=== PATIENT | male | born 1955 | race Two or more races ===

== ENCOUNTER 2020-03-11 21:34 | Emergency (ER) | payer OTHER, MEDICAID ==
[~2020-03-11] VITALS: Ht 170.2 cm; Wt 72.6 kg
[~2020-03-11 21:34] MED LIST: ASPI81CH49 PO; BACL10TA PO; BECL0.07 IN; DIVA500T13 PO; GLIP5TAB12 PO; LANS30CA57 PO; METF850T PO; OXYC-589 PO; QUET150T2 PO; [UNRECOGNIZED DRUG - CODE] PO; [UNRECOGNIZED DRUG - CODE] PO
[2020-03-11 22:11] VITALS: BP 159/89
[2020-03-12] MEDS ORDERED: HYDROcodone-ACET 10/325MG TAB PO ONE (00:45)
== END 2020-03-12 01:14 | disposition home or self-care (01) ==
LOC: ER 21:35
DX: S83.92XA Sprain of unspecified site of left knee, initial encounter (principal); E11.9 Type 2 diabetes mellitus without complications; K21.9 Gastro-esophageal reflux disease without esophagitis; I10 Essential (primary) hypertension; Z88.8 Allergy status to other drugs, medicaments and biological substances; W19.XXXA Unspecified fall, initial encounter; Y93.89 Activity, other specified; Y92.89 Other specified places as the place of occurrence of the external cause; Y99.8 Other external cause status
CPT/HCPCS: 73700

== ENCOUNTER 2022-11-13 12:06 | Emergency (ER) | payer OTHER, MEDICAID ==
[~2022-11-13] VITALS: Ht 170.2 cm; Wt 86.2 kg
[~2022-11-13 12:06] MED LIST changes: +VERA180T42 PO; -[UNRECOGNIZED DRUG - CODE] PO
[2022-11-13 17:19] VITALS: BP 140/73
== END 2022-11-13 17:23 | disposition left against medical advice (07) ==
LOC: ER 12:06
DX: M79.10 Myalgia, unspecified site (principal); Z53.21 Procedure and treatment not carried out due to patient leaving prior to being seen by health care provider

== ENCOUNTER 2022-12-22 14:57 | Emergency (ER) | payer MEDICARE, MEDICAID ==
[~2022-12-22] VITALS: Ht 167.6 cm; Wt 89.0 kg
[~2022-12-22 14:57] MED LIST changes: -VERA180T42 PO; +VERA1TAB PO
[2022-12-22 16:48] VITALS: BP 119/69
[2022-12-22] MEDS ORDERED: LIDOCAINE 1% HCL (LOCAL ANESTH.) INJ 20ML MDV IJ ONE (17:00)
[2022-12-22] MEDS ORDERED: CEPH-510 PO (17:13)
== END 2022-12-22 17:42 | disposition home or self-care (01) ==
LOC: ER 14:57
DX: S01.81XA Laceration without foreign body of other part of head, initial encounter (principal); F32.9 Major depressive disorder, single episode, unspecified; E11.9 Type 2 diabetes mellitus without complications; K21.9 Gastro-esophageal reflux disease without esophagitis; I10 Essential (primary) hypertension; Z88.8 Allergy status to other drugs, medicaments and biological substances; Y04.0XXA Assault by unarmed brawl or fight, initial encounter; Y93.89 Activity, other specified; Y92.89 Other specified places as the place of occurrence of the external cause; Y99.8 Other external cause status
CPT/HCPCS: 12013; 99283; J2001

== ENCOUNTER 2023-09-28 02:00 | Emergency (ER) | payer MEDICARE, MEDICAID ==
[~2023-09-28] VITALS: Ht 170.2 cm; Wt 76.7 kg
[~2023-09-28 02:00] MED LIST changes: +CEPH-510 PO
[2023-09-28 02:46] VITALS: BP 140/88; PULSE 80; RESP 18; TEMP 97.9; O2SAT 98
[2023-09-28] MEDS: ACETAMINOPHEN 325 MG TAB PO ONE (02:54)
== END 2023-09-28 02:48 | disposition home or self-care (01) ==
LOC: ER 02:00
DX: S01.412A Laceration without foreign body of left cheek and temporomandibular area, initial encounter (principal); E11.9 Type 2 diabetes mellitus without complications; I10 Essential (primary) hypertension; K21.9 Gastro-esophageal reflux disease without esophagitis; Z88.6 Allergy status to analgesic agent; W22.01XA Walked into wall, initial encounter; Y93.89 Activity, other specified; Y92.091 Bathroom in other non-institutional residence as the place of occurrence of the external cause; Y99.8 Other external cause status
CPT/HCPCS: 12011

== ENCOUNTER 2024-06-14 20:24 | Emergency (ER) | payer MEDICARE, MEDICAID ==
[~2024-06-14] VITALS: Ht 170.2 cm; Wt 74.0 kg
[~2024-06-14 20:24] MED LIST changes: -GLIP5TAB12 PO; +GLIP5TAB21 PO; +VERA180T60 PO; -VERA1TAB PO
[2024-06-14 23:34] VITALS: BP 147/90; PULSE 108; RESP 20; TEMP 99.4; O2SAT 97
[2024-06-15] MEDS: DexAMETHasone SOD PHOS 10MG/1ML VIAL INJ IM ONE (02:10)
--- NOTE | 2024-06-15 02:26 | ED.PDOC ---
Back pain HPI HPI Comments This is a 68-year-old male presents to the ED with the chief complaint acute on chronic neck pain x2 weeks. Patient reports history of chronic neck pain follows with his primary care doctor for steroid injections every 3 months. However patient states he did not able to get in the past 2 weeks he is complaining of increase in neck pain with stiffness. Describes as achy and throbbing nonradiating type pain posterior neck 8/10 on pain scale. He denies any new injury, numbness, weakness, fevers, chills, chest pain, shortness of breath, or dizziness. Chief Complaint: Neck Pain Time Seen by MD: 20:51 Primary Care Provider: THOMAS Reviewed Notes: Nurses Notes, Medications, Allergies Allergies: Coded Allergies: Ketorolac (Verified Allergy, Mild, 10/24/10) Tromethamine (Verified Allergy, Mild, 10/24/10) Home Meds Active Scripts Cephalexin ( Keflex 500) 500 Mg Cap, 1 CAP PO QID, #30 CAP Prov:AMISH MARTELL 12/22/22 Reported Medications Beclomethasone Dipropionate (Qvar) 40 Mcg Aer, 40 MCG IN BID, AER 2 PUFFS BID 12/16/13 Baclofen (Baclofen) 10 Mg Tab, 10 MG PO BID PRN for FOR MUSCLE SPASM, MG 12/16/13 Quetiapine Fumerate (Seroquel Xr) 150 Mg Tab, 350 MG PO HS for 30 Days, MG 12/16/13 Divalproex Sodium (Divalproex Sodium) 500 Mg Tab, 500 MG PO BID, MG 12/16/13 Hydrocodone-Acetaminophen (Hydrocodone/Acetaminophen) 1 Tab Tab, 1 TAB PO Q6HP PRN for MODERATE PAIN, TAB 12/16/13 Metformin Hydrochloride (Glucophage) 850 Mg Tab, 850 MG PO BID, TAB 12/16/13 Aspirin (Aspirin) 81 Mg Chw, 81 MG PO DAILY, CHW 12/16/13 Lansoprazole (Lansoprazole) 30 Mg Cap, 30 MG PO DAILY, CAP 12/16/13 Oxycodone Hcl (Roxicodone) 5 Mg Tab, 5 MG PO Q6HPRN PRN for MODERATE PAIN, TAB 12/16/13 Verapamil Hcl (Verapamil Hcl Er) 180 Mg Tab, 180 MG PO DAILY, TAB 12/16/13 Glipizide (Glipizide) 5 Mg Tab, 5 MG PO BID, MG 12/16/13 Mode of Arrival: Ambulatory Past Medical History PAST MEDICAL HISTORY: Depression, DM, GERD, HTN Family History Family History: Reviewed,noncontributory to illness Social History Smoker: Non-Smoker Alcohol: Denies ETOH Use Drugs: Denies Drug Use Lives In: Home Constitutional: denies: chills, diaphoresis, fatigue, fever, malaise, sweats, weakness, others EENTM: denies: blurred vision, double vision, ear bleeding, ear discharge, ear drainage, ear pain, ear ringing, eye pain, eye redness, hearing loss, mouth pain, mouth swelling, nasal discharge, nose bleeding, nose congestion, nose pain, photophobia, tearing, throat pain, throat swelling, voice changes, others Respiratory: denies: cough, hemoptysis, orthopnea, SOB at rest, shortness of breath, SOB with excertion, stridor, wheezing, others Cardiovascular: denies: chest pain, dizzy spells, diaphoresis, Dyspnea on exertion, edema, irregular heart beat, left arm pain, lightheadedness, palpitations, PND, syncope, others Gastrointestinal: denies: abdomen distended, abdominal pain, blood streaked bowels, constipated, diarrhea, dysphagia, difficulty swallowing, hematemesis, melena, nausea, poor appetite, poor fluid intake, rectal bleeding, rectal pain, vomiting, others Genitourinary: denies: burning, dysuria, flank pain, frequency, hematuria, incontinence, penile discharge, penile sore, pain, testicle pain, testicle swelling, urgency, others Neurological: denies: dizziness, fainting, headache, left sided numbness, left sided weakness, numbness, paresthesia, pre-existing deficit, right sided numbness, right sided weakness, seizure, speech problems, tingling, tremors, weakness, others Musculoskeletal: reports: neck pain; denies: back pain, gout, joint pain, joint swelling, muscle pain, muscle stiffness, others Integumetry: denies: bruises, change in color, change in hair/nails, dryness, laceration, lesions, lumps, rash, wounds, others Allergic/Immunocompromised: denies: Difficulty Healing, Frequent Infections, Hives, Itching, others Hematologic/Lymphatic: denies: anemia, blood clots, easy bleeding, easy bruising, swollen glands, others Endocrine: denies: excessive hunger, excessive sweating, excessive thirst, excessive urination, flushing, intolerance to cold, intolerance to heat, unexp lained weight gain, unexplained weight loss, others Psychiatric: denies: anxiety, bipolar disorder, depression, hopeless, panic disorder, schizophrenia, sleepless, suicidal, others Physical Exam General Appearance: No Apparent Distress, Normal HEENT: Pharynx Normal Neck: Limited Range of Motion (In his palpated over C4 through C7 cervical spine without crepitus or step-offs. 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 Was a procedure done?: No Back Pain Differential Dx Differential Diagnosis: Musculoskeletal Pain X-Ray, Labs, Meds, VS Vital Signs Date Time Temp Pulse Resp B/P (MAP) Pulse Ox O2 Delivery O2 Flow Rate FiO2 06/14/24 23:34 108 20 97 Room Air 06/14/24 23:34 99.4 111 20 147/90 (109) 97 99.4 06/14/24 20:41 97.3 109 16 146/108 (121) 96 Current Medications Medications (Trade) Dose Ordered Sig/Anam Route Start Time Stop Time Status Last Admin Dexamethasone Sodium Phosphate (Decadron Injection) 10 mg ONCE ONCE IM 06/15/24 02:00 06/15/24 02:01 DC 06/15/24 02:10 Time of 1ST Reevaluation: 02:26 Reevaluation 1ST: Improved Patient Education/Counseling: Diagnosis, Treatment, Prognosis, Need For Follow Up Family Education/Counseling: No Family Present Departure 1 Departure Time of Disposition: 02:25 Impression: Primary Impression: Chronic neck pain Disposition: 01 HOME / SELF CARE / HOMELESS Condition: Stable Discharged With: Self Critical Care Note Critical Care Time?: No Stability Stability form required: DEXTER Thomas Jun 15, 2024 02:26
== END 2024-06-15 03:10 | disposition home or self-care (01) ==
LOC: ER 20:24
DX: G89.29 Other chronic pain (principal); M54.2 Cervicalgia; E11.9 Type 2 diabetes mellitus without complications; K21.9 Gastro-esophageal reflux disease without esophagitis; I10 Essential (primary) hypertension; Z88.6 Allergy status to analgesic agent; Z79.899 Other long term (current) drug therapy; Z79.84 Long term (current) use of oral hypoglycemic drugs
CPT/HCPCS: 96372; 99283; J1100

== ENCOUNTER 2024-08-24 22:26 | Emergency (ER) | payer MEDICARE, MEDICAID ==
[~2024-08-24] VITALS: Ht 170.2 cm; Wt 73.1 kg
[2024-08-24 23:51] LABS: Basophils # (auto) 0.1 10 ^3/uL (0-0.2); Basophils % (auto) 0.5 % (0.0-2.0); Eosinophils # (auto) 0 10 ^3/uL (0-0.8); Eosinophils % (auto) 0.2 % (0.0-7.0); Hematocrit 42.5 % (41.0-53.0); Hemoglobin 14.8 g/dL (13.5-17.5); Lymphocytes % (auto) 9.5 % (10.0-50.0); Mean Corpuscular Hemoglobin 33.9 pg (28.0-32.0); Mean Corpuscular Hgb Conc. 34.9 g/dL (32.0-36.0); Mean Corpuscular Volume 97.1 fL (80.0-100.0); Monocytes # (auto) 0.7 10 ^3/uL (0-1.3); Monocytes % (auto) 6.6 % (0.0-12.0); Neutrophils # (auto) 9.1 10 ^3/uL (1.6-8.6); Neutrophils % (auto) 83.2 % (37.0-80.0); Platelet Count (auto) 260 10^3/uL (140-450); Red Blood Cells 4.38 10^6/uL (4.5-5.90); Red Cell Distribution Width 13.2 % (11.8-14.3); White Blood Cell 10.9 10^3/uL (4.4-10.8)
[2024-08-25 00:09] LABS: Urine Bacteria None Seen /hpf (None Seen)
[2024-08-25 00:10] LABS: Chloride 104 mmol/L (98-107); Potassium 4.1 mmol/L (3.5-5.1); Sodium 140 mmol/L (136-145)
[2024-08-25 00:11] LABS: Anion Gap 11 (5-15); Carbon Dioxide 25 mmol/L (20-31)
[2024-08-25 00:16] LABS: Calcium 10.6 mg/dL (8.7-10.4)
[2024-08-25 00:17] LABS: BUN/Creatinine Ratio 14.8 (10.0-20.0); Blood Urea Nitrogen 13 mg/dL (9-23); Glucose 114 mg/dL (74-106)
[2024-08-25 00:31] LABS: Urine Blood Negative /uL (Negative); Urine Clarity Clear (Clear); Urine Color Light-Yellow (Yellow); Urine Mucus FEW (None Seen); Urine Protein, UAD Negative (Negative); Urine Specific Gravity 1.016 (1.001-1.035); Urine Squamous Epithelial Cell FEW /hpf (<5); Urine Urobilinogen Normal (Negative); Urine WBC < 1 /HPF (0-3); Urine pH 7.5 (5.0-9.0)
[2024-08-25] MEDS: predniSONE 20 MG TAB PO ONE (01:11)
[2024-08-25] MEDS: CYCLOBENZAPRINE HCL 10 MG TAB PO ONE (01:11)
[2024-08-25] MEDS: ACETAMINOPHEN 325 MG TAB PO ONE (01:11)
--- NOTE | 2024-08-25 01:11 | ED.PDOC ---
History of Present Illness HPI Comments 68 y/o M, with a Hx of bipolar disorder, depression, DM, GERD, and HTN, presents with c/o neck, back, and bilateral shoulders, wrists, and knee pain for 3x days, today. Patient is a poor historian and endorses on unprovoked onset of pain, with no prior Hx of in the past, that has been persistent for over the past 3x days. He comments on being seen and evaluated at an urgent car facility, yesterday, morning, and being discharge without any pain treatment or medication prescription given then. Patient also reports no recent injuries and denies having any weakness, numbness, tingling, or other associated symptoms or modifiers at this time. Chief Complaint: Back Pain Time Seen by MD: 00:45 Primary Care Provider: THOMAS Reviewed Notes: Nurses Notes, Medications, Allergies Allergies: Coded Allergies: Ketorolac (Verified Allergy, Mild, 10/24/10) Tromethamine (Verified Allergy, Mild, 10/24/10) Home Meds Active Scripts Cephalexin ( Keflex 500) 500 Mg Cap, 1 CAP PO QID, #30 CAP Prov:AMISH MARTELL 12/22/22 Reported Medications Beclomethasone Dipropionate (Qvar) 40 Mcg Aer, 40 MCG IN BID, AER 2 PUFFS BID 12/16/13 Baclofen (Baclofen) 10 Mg Tab, 10 MG PO BID PRN for FOR MUSCLE SPASM, MG 12/16/13 Quetiapine Fumerate (Seroquel Xr) 150 Mg Tab, 350 MG PO HS for 30 Days, MG 12/16/13 Divalproex Sodium (Divalproex Sodium) 500 Mg Tab, 500 MG PO BID, MG 12/16/13 Hydrocodone-Acetaminophen (Hydrocodone/Acetaminophen) 1 Tab Tab, 1 TAB PO Q6HP PRN for MODERATE PAIN, TAB 12/16/13 Metformin Hydrochloride (Glucophage) 850 Mg Tab, 850 MG PO BID, TAB 12/16/13 Aspirin (Aspirin) 81 Mg Chw, 81 MG PO DAILY, CHW 12/16/13 Lansoprazole (Lansoprazole) 30 Mg Cap, 30 MG PO DAILY, CAP 12/16/13 Oxycodone Hcl (Roxicodone) 5 Mg Tab, 5 MG PO Q6HPRN PRN for MODERATE PAIN, TAB 12/16/13 Verapamil Hcl (Verapamil Hcl Er) 180 Mg Tab, 180 MG PO DAILY, TAB 12/16/13 Glipizide (Glipizide) 5 Mg Tab, 5 MG PO BID, MG 12/16/13 Information Source: Patient Mode of Arrival: Ambulatory Severity: Moderate Timing: Days Duration: Since onset Prehospital treatment: None Past Medical History PAST MEDICAL HISTORY: Depression, DM, GERD, HTN Past Medical History (Other): Bipolar disorder Surgical History: Denies all surgeries Family History Family History: Reviewed,noncontributory to illness Social History Smoker: Non-Smoker Alcohol: Denies ETOH Use Drugs: Denies Drug Use Lives In: Home Musculoskeletal: reports: back pain, joint pain (bilateral wrists, shoulders, and knee pain ), neck pain All Other Systems: Reviewed and Negative (negative unless otherwise stated above or in HPI) Physical Exam General Appearance: No Apparent Distress, Normal HEENT: Normal ENT Inspection, Pharynx Normal, TMs Normal Neck: Full Range of Motion, Non-Tender, Normal, Normal Inspection Respiratory: Chest Non-Tender, Lungs Clear, No Accessory Muscle Use, No Respiratory Distress, Normal Breath Sounds Cardiovascular: No Edema, No JVD, No Murmur, No Gallop, Normal Peripheral Pulses, Regular Rate/Rhythm Breast Exam: Deferred Gastrointestinal: No Organomegaly, Non Tender, No Pulsatile Mass, Normal Bowel Sounds, Soft Genitalia: Deferred Pelvic: Deferred Rectal: Deferred Extremities: No calf tenderness, Normal capillary refill, Normal inspection, Normal range of motion, Non-tender, No pedal edema Musculoskeletal : Location: Bilateral Extremity Location: Back (cervical ) Apperance: Normal, Tenderness Neurologic: 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 Was a procedure done?: No Differential Dx Considerations may include: cervical radiculopathy, DDD, sprain, musculoskeletal pain, bruising, contusions X-Ray, Labs, Meds, VS Vital Signs Date Time Temp Pulse Resp B/P (MAP) Pulse Ox O2 Delivery O2 Flow Rate FiO2 08/25/24 01:14 100.1 101 19 153/91 (111) 97 100.1 08/25/24 01:14 101 19 97 Room Air 08/25/24 01:11 100.1 08/24/24 22:56 98.1 101 18 155/91 (112) 97 Lab Test 08/25/24 01:05 08/24/24 23:59 08/24/24 23:43 Range/Units Influenza Type A Antigen Pending Influenza Type B Antigen Pending SARS-CoV-2 Antigen (Rapid) Pending Urine Color Light-yellow Yellow Urine Clarity Clear Clear Urine pH 7.5 5.0-9.0 Urine Specific [place] 1.016 1.001-1.035 Urine Protein Negative Negative Urine Ketones Negative Negative Urine Blood Negative Negative /uL Urine Nitrite Negative Negative Urine Bilirubin Negative Negative Urine Urobilinogen Normal Negative mg/dL Urine Leukocyte Esterase Negative Negative /uL Urine RBC 1 0 - 3 /hpf Urine Microscopic WBC < 1 0-3 /HPF Urine Squamous Epithelial Cells Few <5 /hpf Urine Bacteria None seen None Seen /hpf Urine Mucus Few None Seen Urine Glucose Normal Normal mg/dL White Blood Count 10.9 H 4.4-10.8 10^3/uL Red Blood Count 4.38 L 4.5-5.90 10^6/uL Hemoglobin 14.8 13.5-17.5 g/dL Hematocrit 42.5 41.0-53.0 % Mean Corpuscular Volume 97.1 80.0-100.0 fL Mean Corpuscular Hemoglobin 33.9 H 28.0-32.0 pg Mean Corpuscular Hemoglobin Concent 34.9 32.0-36.0 g/dL Red Cell Distribution Width 13.2 11.8-14.3 % Platelet Count 260 140-450 10^3/uL Mean Platelet Volume 6.2 L 6.9-10.8 fL Neutrophils (%) (Auto) 83.2 H 37.0-80.0 % Lymphocytes (%) (Auto) 9.5 L 10.0-50.0 % Monocytes (%) (Auto) 6.6 0.0-12.0 % Eosinophils (%) (Auto) 0.2 0.0-7.0 % Basophils (%) (Auto) 0.5 0.0-2.0 % Neutrophils # (Auto) 9.1 H 1.6-8.6 10 ^3/uL Lymphocytes # (Auto) 1.0 0.4-5.4 10 ^3/uL Monocytes # (Auto) 0.7 0-1.3 10 ^3/uL Eosinophils # (Auto) 0 0-0.8 10 ^3/uL Basophils # (Auto) 0.1 0-0.2 10 ^3/uL Nucleated Red Blood Cells 0.0 % Sodium Level 140 136-145 mmol/L Potassium Level 4.1 3.5-5.1 mmol/L Chloride Level 104 98-107 mmol/L Carbon Dioxide Level 25 20-31 mmol/L Anion Gap 11 5-15 Blood Urea Nitrogen 13 9-23 mg/dL Creatinine 0.88 0.700-1.30 mg/dL Glomerular Filtration Rate Calc 93 >90 mL/min BUN/Creatinine Ratio 14.8 10.0-20.0 Serum Glucose 114 H 74-106 mg/dL Calcium Level 10.6 H 8.7-10.4 mg/dL Current Medications Medications (Trade) Dose Ordered Sig/Anam Route Start Time Stop Time Status Last Admin Acetaminophen (Tylenol Tablet) 650 mg ONCE ONCE PO 08/25/24 01:00 08/25/24 01:02 DC 08/25/24 01:11 Cyclobenzaprine HCl (Flexeril Tablet) 5 mg ONCE ONCE PO 08/25/24 01:00 08/25/24 01:02 DC 08/25/24 01:11 Prednisone 20 mg ONCE ONCE PO 08/25/24 01:00 08/25/24 01:02 DC 08/25/24 01:11 Time of 1ST Reevaluation: 01:15 Reevaluation 1ST: Unchanged Patient Education/Counseling: Diagnosis, Treatment Family Education/Counseling: No Family Present Additional Information I reviewed the following notes from patient's past medical encounters: ED physician note on 06/14/24 The following tests were ordered, and results were reviewed by me: rapid influenza A&B and Covid19 antigen NATHALY tests, UA, BMP, CBC I discussed treatment and results with medical personnel Departure 1 Departure Time of Disposition: 01:39 (Patient with cervical radiculopathy given positive Spurling test. Patient has otherwise feeling well. We will discharge patient home with outpatient follow up.) Impression: Primary Impression: Cervical radiculopathy Disposition: HOME / SELF CARE / HOMELESS Condition: Stable Additional Instructions: You have cervical radiculopathy. This is inflammation of your cervical nerve. For pain you can take the followinam: Ibuprofen 400mg with food Noon: Acetaminophen 1000mg 4pm: Ibuprofen 400mg with food 8pm: Acetaminophen 1000mg You were also prescribed muscle relaxers. Please take as directed. You can wear a soft collar for comfort. You were referred to neurology. Please call for an appointment. If your symptoms worsen or you have any other concerns then please return to the ER. e-Prescriptions Cyclobenzaprine HCl (Cyclobenzaprine Hydrochlo) 5 Mg Tab 5 MG PO BID PRN for 7 Days, #14 TAB Prov: EFE JOSHUA MD 08/25/24 Prednisone (Prednisone) 20 Mg Tab 40 MG PO DAILY for 5 Days, #10 MG Prov: EFE JOSHUA MD 08/25/24 Discharged With: Self Critical Care Note Critical Care Time?: No Stability Stability form required: No Heart Score Heart Score: Heart Score Response (Comments) Value History N/A 0 EKG N/A 0 Age N/A 0 Risk Factors N/A 0 Troponin N/A 0 Total 0 I personally scribed for EFE JOSHUA MD ([email or web address]) on 08/25/24 at 01:11. Electronically submitted by Ishmael Kwon ([email or web address]). EFE JOSHUA MD Aug 25, 2024 01:11
[2024-08-25 01:14] VITALS: BP 153/91; PULSE 101; RESP 19; TEMP 100.1; O2SAT 97
[2024-08-25] MEDS ORDERED: CYCL-614 PO (01:41)
[2024-08-25] MEDS ORDERED: PRED20TA2 PO (01:41)
[2024-08-25 02:05] LABS: COVID19 ANTIGEN SOFIA FIA NEGATIVE (NEGATIVE); Rapid Influenza A Negative (Negative); Rapid Influenza B Negative (Negative)
== END 2024-08-25 02:16 | disposition home or self-care (01) ==
LOC: ER 22:26
DX: M54.12 Radiculopathy, cervical region (principal); I10 Essential (primary) hypertension; K21.9 Gastro-esophageal reflux disease without esophagitis; E11.9 Type 2 diabetes mellitus without complications; Z79.51 Long term (current) use of inhaled steroids; Z79.82 Long term (current) use of aspirin; Z79.84 Long term (current) use of oral hypoglycemic drugs; Z79.899 Other long term (current) drug therapy; Z88.8 Allergy status to other drugs, medicaments and biological substances; Z20.822 Contact with and (suspected) exposure to COVID-19
CPT/HCPCS: 36415; 80048; 81001; 85025; 87426; 87804; 99284; J7512

== ENCOUNTER 2025-01-23 04:28 | Inpatient (IN) | payer MEDICARE, MEDICAID ==
[~2025-01-23] VITALS: Ht 170.2 cm; Wt 97.3 kg
[~2025-01-23 04:28] MED LIST changes: +CYCL-614 PO; +PRED20TA2 PO
[2025-01-23] MEDS: NITROGLYCERIN 0.4 MG SL TAB SL ONE (05:05)
--- NOTE | 2025-01-23 05:34 | ED.PDOC ---
History of Present Illness HPI Comments 69-year-old male who came to ER due to high blood pressure and chest pain. Patient has history of hypertension, diabetes, COPD, asthma. Patient states he has been off his medications for the past few days. Patient recently released from a [facility]. Patient [place] on [place] free[place], so was picked up by [facility] and was brought to [facility] earlier today, however patient left prior to completion of treatment. Patient states that his blood pressure was high at [facility]. Patient opted to go to [facility] since it was closer to where he lives, currently complaining of headaches, dizziness, neck pains, shortness of breath, left sided chest pains radiating down his left arm. Blood pressure upon arrival was 154/100 mmHg Chief Complaint: High Blood Pressure Time Seen by MD: 05:33 Primary Care Provider: THOMAS Reviewed Notes: Nurses Notes Allergies: Coded Allergies: Ketorolac (Verified Allergy, Mild, 10/24/10) Tromethamine (Verified Allergy, Mild, 10/24/10) Home Meds Active Scripts Cyclobenzaprine HCl (Cyclobenzaprine Hydrochlo) 5 Mg Tab, 5 MG PO BID PRN for 7 Days, #14 TAB Prov:EFE JOSHUA MD 08/25/24 Prednisone (Prednisone) 20 Mg Tab, 40 MG PO DAILY for 5 Days, #10 MG Prov:EFE JOSHUA MD 08/25/24 Cephalexin ( Keflex 500) 500 Mg Cap, 1 CAP PO QID, #30 CAP Prov:AMISH MARTELL 12/22/22 Reported Medications Beclomethasone Dipropionate (Qvar) 40 Mcg Aer, 40 MCG IN BID, AER 2 PUFFS BID 12/16/13 Baclofen (Baclofen) 10 Mg Tab, 10 MG PO BID PRN for FOR MUSCLE SPASM, MG 12/16/13 Quetiapine Fumerate (Seroquel Xr) 150 Mg Tab, 350 MG PO HS for 30 Days, MG 12/16/13 Divalproex Sodium (Divalproex Sodium) 500 Mg Tab, 500 MG PO BID, MG 12/16/13 Hydrocodone-Acetaminophen (Hydrocodone/Acetaminophen) 1 Tab Tab, 1 TAB PO Q6HP PRN for MODERATE PAIN, TAB 12/16/13 Metformin Hydrochloride (Glucophage) 850 Mg Tab, 850 MG PO BID, TAB 12/16/13 Aspirin (Aspirin) 81 Mg Chw, 81 MG PO DAILY, CHW 12/16/13 Lansoprazole (Lansoprazole) 30 Mg Cap, 30 MG PO DAILY, CAP 12/16/13 Oxycodone Hcl (Roxicodone) 5 Mg Tab, 5 MG PO Q6HPRN PRN for MODERATE PAIN, TAB 12/16/13 Verapamil Hcl (Verapamil Hcl Er) 180 Mg Tab, 180 MG PO DAILY, TAB 12/16/13 Glipizide (Glipizide) 5 Mg Tab, 5 MG PO BID, MG 12/16/13 Information Source: Patient Mode of Arrival: Ambulatory Severity: Moderate Timing: Days Duration: Intermittent Past Medical History PAST MEDICAL HISTORY: Asthma, COPD, Depression, DM, GERD, HTN Surgical History: Cholecystectomy Surgical History (Other): Right knee surgery Family History Family History: Reviewed,noncontributory to illness Social History Smoker: Non-Smoker Alcohol: Denies ETOH Use Drugs: Denies Drug Use Lives In: Home Constitutional: denies: chills, diaphoresis, fatigue, fever, malaise, sweats, weakness, others EENTM: denies: blurred vision, double vision, ear bleeding, ear discharge, ear drainage, ear pain, ear ringing, eye pain, eye redness, hearing loss, mouth pain, mouth swelling, nasal discharge, nose bleeding, nose congestion, nose pain, photophobia, tearing, throat pain, throat swelling, voice changes, others Respiratory: reports: SOB at rest, shortness of breath; denies: cough, hemoptysis, orthopnea, SOB with excertion, stridor, wheezing, others Cardiovascular: reports: chest pain, left arm pain; denies: dizzy spells, diaphoresis, Dyspnea on exertion, edema, irregular heart beat, lightheadedness, palpitations, PND, syncope, others Gastrointestinal: denies: abdomen distended, abdominal pain, blood streaked bowels, constipated, diarrhea, dysphagia, difficulty swallowing, hematemesis, melena, nausea, poor appetite, poor fluid intake, rectal bleeding, rectal pain, vomiting, others Genitourinary: denies: burning, dysuria, flank pain, frequency, hematuria, incontinence, penile discharge, penile sore, pain, testicle pain, testicle swelling, urgency, others Neurological: reports: dizziness, headache; denies: fainting, left sided numbness, left sided weakness, numbness, paresthesia, pre-existing deficit, right sided numbness, right sided weakness, seizure, speech problems, tingling, tremors, weakness, others Musculoskeletal: reports: neck pain; denies: back pain, gout, joint pain, joint swelling, muscle pain, muscle stiffness, others Integumetry: denies: bruises, change in color, change in hair/nails, dryness, laceration, lesions, lumps, rash, wounds, others Allergic/Immunocompromised: denies: Difficulty Healing, Frequent Infections, Hives, Itching, others Hematologic/Lymphatic: denies: anemia, blood clots, easy bleeding, easy bruising, swollen glands, others Endocrine: denies: excessive hunger, excessive sweating, excessive thirst, excessive urination, flushing, intolerance to cold, intolerance to heat, unexplained weight gain, unexplained weight loss, others Psychiatric: denies: anxiety, bipolar disorder, depression, hopeless, panic disorder, schizophrenia, sleepless, suicidal, others Physical Exam General Appearance: No Apparent Distress HEENT: Other (Pupils and face symmetric. Moist mucous membranes.) Neck: Full Range of Motion, Normal Inspection Respiratory: Lungs Clear, No Accessory Muscle Use, No Respiratory Distress, Normal Breath Sounds Cardiovascular: No Edema, No JVD, Regular Rate/Rhythm Breast Exam: Deferred Gastrointestinal: Non Tender, Soft Genitalia: Deferred Pelvic: Deferred Rectal: Deferred Extremities: Normal inspection, Normal range of motion, Non-tender, No pedal edema Neurologic: Alert (Oriented x4), Normal Affect, Normal Mood, Other (Ambulatory) Cerebellar Function: NOT DONE Reflexes: NOT DONE Skin: Dry, Normal Color, Warm Lymphatic: NOT DONE Was a procedure done? Was a procedure done?: No EKG EKG : Comments Sinus tach, rate 102, normal VT and QRS intervals, QTC 473, LVH, left axis deviation, left anterior fascicular block, normal QRS, nonspecific T change. Differential Dx Considerations may include: Hypertensive urgency/emergency, ACS, FL, arrhythmia, CHF, COPD, medication noncompliance, among others X-Ray, Labs, Meds, VS Vital Signs Date Time Temp Pulse Resp B/P (MAP) Pulse Ox O2 Delivery O2 Flow Rate FiO2 01/23/25 05:37 102 01/23/25 05:05 154/100 01/23/25 04:45 99.5 109 20 154/100 (118) 98 99.5 Lab Test 01/23/25 05:38 01/23/25 04:57 Range/Units White Blood Count 7.5 4.4-10.8 10^3/uL Red Blood Count 4.38 L 4.5-5.90 10^6/uL Hemoglobin 14.7 13.5-17.5 g/dL Hematocrit 42.1 41.0-53.0 % Mean Corpuscular Volume 96.0 80.0-100.0 fL Mean Corpuscular Hemoglobin 33.5 H 28.0-32.0 pg Mean Corpuscular Hemoglobin Concent 34.9 32.0-36.0 g/dL Red Cell Distribution Width 13.6 11.8-14.3 % Platelet Count 267 140-450 10^3/uL Mean Platelet Volume 6.4 L 6.9-10.8 fL Neutrophils (%) (Auto) 72.7 37.0-80.0 % Lymphocytes (%) (Auto) 18.4 10.0-50.0 % Monocytes (%) (Auto) 8.3 0.0-12.0 % Eosinophils (%) (Auto) 0.3 0.0-7.0 % Basophils (%) (Auto) 0.3 0.0-2.0 % Neutrophils # (Auto) 5.5 1.6-8.6 10 ^3/uL Lymphocytes # (Auto) 1.4 0.4-5.4 10 ^3/uL Monocytes # (Auto) 0.6 0-1.3 10 ^3/uL Eosinophils # (Auto) 0 0-0.8 10 ^3/uL Basophils # (Auto) 0 0-0.2 10 ^3/uL Nucleated Red Blood Cells 0.0 % Sodium Level 142 136-145 mmol/L Potassium Level 3.5 3.5-5.1 mmol/L Chloride Level 106 98-107 mmol/L Carbon Dioxide Level 23 20-31 mmol/L Anion Gap 13 5-15 Blood Urea Nitrogen 20 9-23 mg/dL Creatinine 1.12 0.700-1.30 mg/dL Glomerular Filtration Rate Calc 70 >90 mL/min BUN/Creatinine Ratio 17.9 10.0-20.0 Serum Glucose 156 H 74-106 mg/dL Calcium Level 10.5 H 8.7-10.4 mg/dL Troponin I High Sensitivity Pending B-Type Natriuretic Peptide 41.22 0-100 pg/mL POC Glucose 131 H 70-106 mg/dl Current Medications Medications (Trade) Dose Ordered Sig/Anam Route Start Time Stop Time Status Last Admin Aspirin 325 mg ONCE ONCE PO 01/23/25 05:00 01/23/25 05:01 DC 01/23/25 05:05 Nitroglycerin (Ntrostat Sublingual) 0.4 mg ONCE ONCE SL 01/23/25 05:00 01/23/25 05:01 DC 01/23/25 05:05 CHEST RADIOGRAPH Indication: hi bp Technique: Single frontal view of the chest was obtained COMPARISON: None FINDINGS: Lines and Tubes: None Lungs: Clear Pleura: No effusion. No pneumothorax. Cardiomediastinal contours: Unremarkable Bones: Unremarkable IMPRESSION: 1. No acute disease. X-Ray, Labs, Meds, VS Comment 69-year-old male with a history of hypertension, diabetes, COPD and GERD complaining of elevated blood pressure, chest pain and shortness of breath Vitals remarkable for heart rate 109, BP 154/100 Exam unremarkable Rhythm strip independently interpreted by me: Sinus tach, rate 102, no ectopy. Chest x-ray unremarkable CBC, basic metabolic panel and BNP unremarkable. Troponin pending. Patient treated with the following in the ED: Aspirin 325 mg p.o., nitroglycerin 0.4 mg sublingual On re-evaluation, patient appears to be resting comfortably. Patient endorsed to the oncoming ED physician at 0 600 to follow-up on remainder of lab results. Plan is to admit the patient for blood pressure control and Cardiology evaluation. Time of 1ST Reevaluation: 05:27 Reevaluation 1ST: Unchanged Patient Education/Counseling: Diagnosis, Treatment Family Education/Counseling: No Family Present SEPSIS Sepsis Screen Date sepsis recognized/suspect: Jan 23, 2025 Time Sepsis recognized/suspect: 444 Recent Procedure: No On Antibiotic Therapy: No Respiratory Rate >20: No Heart Rate >90: Yes Temp<36 C (96.8 F) or >38.3 C: No SBP <90 or MAP <65 mmHG: No New Acute Mental Status Change: No Is the patient on CPAP, BIPAP,: No Physician Orders Chest Portable (01/23/25 04:39) Troponin-I Hs (01/23/25 04:51) Troponin-I Hs (01/23/25 05:51) Troponin-I Hs (01/23/25 07:51) Vital Signs Date Time Temp Pulse Resp B/P (MAP) Pulse Ox O2 Delivery O2 Flow Rate FiO2 01/23/25 05:37 102 01/23/25 05:05 154/100 01/23/25 04:45 99.5 109 20 154/100 (118) 98 99.5 Laboratory Tests Test 01/23/25 05:38 White Blood Count 7.5 10^3/uL (4.4-10.8) Medications Medications Dose Ordered Sig/Anam Route Start Time Stop Time Status Last Admin Dose Admin Aspirin 325 mg ONCE ONCE PO 01/23/25 05:00 01/23/25 05:01 DC 01/23/25 05:05 Nitroglycerin 0.4 mg ONCE ONCE SL 01/23/25 05:00 01/23/25 05:01 DC 01/23/25 05:05 Departure 1 Departure Time of Disposition: 06:00 Impression: Primary Impression: Chest pain with high risk for cardiac etiology Additional Impression: Hypertensive emergency Disposition: ADMITTED INPATIENT Admit to: Tele Condition: Guarded Critical Care Note Critical Care Time?: Yes (35 min-critical care time only) Critical care comment: Critical care time including multiple bedside re-evaluations, review of lab and imaging studies, and discussion of the case with the admitting provider. Patient is high risk for hemodynamic decompensation. Stability Stability form required: No Heart Score Heart Score: Heart Score Response (Comments) Value History Moderate Suspicious 1 EKG Repolarization Disturb 1 Age >65 2 Risk Factors >3 or Hx ASHD 2 Troponin Normal limit 0 Total 6 I personally scribed for GREY HOOVER MD ([email or web address]) on 01/23/25 at 05:34. Electronically submitted by Norman Hermosillo ([email or web address] I personally scribed for GREY HOOVER MD ([email or web address]) on 01/23/25 at 05:51. Electronically submitted by Norman Hermosillo ([email or web address] GREY HOOVER MD Jan 23, 2025 05:34
--- NOTE | 2025-01-23 05:46 | DVH ---
CHEST RADIOGRAPH Indication: hi bp Technique: Single frontal view of the chest was obtained COMPARISON: None FINDINGS: Lines and Tubes: None Lungs: Clear Pleura: No effusion. No pneumothorax. Cardiomediastinal contours: Unremarkable Bones: Unremarkable IMPRESSION: 1. No acute disease.
[2025-01-23 06:00] LABS: Hematocrit 42.1 % (41.0-53.0); Hemoglobin 14.7 g/dL (13.5-17.5); Mean Corpuscular Hemoglobin 33.5 pg (28.0-32.0); Mean Corpuscular Volume 96.0 fL (80.0-100.0); Nucleated Red Blood Cells % 0.0 %
[2025-01-23 06:09] LABS: Anion Gap 13 (5-15); Carbon Dioxide 23 mmol/L (20-31); Chloride 106 mmol/L (98-107); Potassium 3.5 mmol/L (3.5-5.1); Sodium 142 mmol/L (136-145)
[2025-01-23 06:15] LABS: BUN/Creatinine Ratio 17.9 (10.0-20.0); Blood Urea Nitrogen 20 mg/dL (9-23)
[2025-01-23 06:21] LABS: Calcium 10.5 mg/dL (8.7-10.4); Glucose 156 mg/dL (74-106)
--- NOTE | 2025-01-23 07:07 | DVHHP2 ---
History of Present Illness Reason for Visit: chest pain History of Present Illness 69-year-old male past medical history hypertension diabetes COPD asthma depression GERDs surgical history right knee surgery gallbladder surgery chief complaint patient states he was released from [facility] he was in there for three days since he had an incident with his he states he was in his least in his according to the ED records they found him walking a freeway when they picked him up the high told they he was complain of midsternal chest pain he states he had chest pain he was in the nursing home center in he went to the hospital everything was fine so he has continues to have the chest pain no shortness with the breath patient states that his blood pressure is high because he is not able to get his medications when arrival to the ED patient's blood pressure is found to be 154/100. When evaluating patient's labs and imaging CBC was unremarkable CMP unremarkable only glucose 156 BNP was negative troponin x3 was negative chest x-ray unremarkable with these findings we will admit the cardiac workup meth normal findings we will consider Cardiology consult Past Medical History See HPI above Past Surgical History See HPI above Family History Reviewed, non-contributory to the management of this case. Past Social History The patient lives at home, denies smoking, alcohol or illicit drugs abuse. Review of Systems Constitutional: No: Fever, Chills, Sweats, Weakness, Malaise, Other Eyes: No: Pain, Vision change, Conjunctivae inflammation, Eyelid inflammation, Other, Redness ENT: No: Ear pain, Ear discharge, Nose pain, Nose discharge, Nose congestion, Mouth pain, Mouth swelling, Throat pain, Throat swelling, Other Respiratory: No: Cough, Dry, Shortness of breath, SOB with excertion, Wheezing, Hemoptysis, Pleuritic Pain, Sputum, Wheezing, Other Cardiovascular: Chest Pain; No: Palpitations, Orthopnea, Paroxysmal Noc. Dyspnea, Edema, Lt Headedness, Other Gastrointestinal: No: Nausea, Vomiting, Abdominal Pain, Diarrhea, Constipation, Melena, Hematochezia, Other Genitourinary: No Dysuria, No Frequency, No Incontinence, No Hematuria, No Retention, No Other Musculoskeletal: No: other, neck pain, shoulder pain, arm pain, back pain, hand pain, leg pain, foot pain Skin: No: Rash, Lesions, Jaundice, Bruising, Other Neurological: No: Weakness, Numbness, Incoordination, Change in speech, Confusion, Seizures, Other Allergies: Coded Allergies: Ketorolac (Verified Allergy, Mild, 10/24/10) Tromethamine (Verified Allergy, Mild, 10/24/10) Exam Vital Signs Vital Signs Date Time Temp Pulse Resp B/P (MAP) Pulse Ox O2 Delivery O2 Flow Rate FiO2 01/23/25 05:37 102 01/23/25 05:05 154/100 01/23/25 04:45 99.5 20 98 99.5 General Appearance: Alert, Oriented X3, Cooperative, No acute distress HEENT: Atraumatic, PERRLA, EOMI, Mucous membr. moist/pink Respiratory: Clear to auscultation, Normal air movement Cardiovascular: Regular rate, Normal S1, Normal S2, No murmurs Abdominal: Normal bowel sounds, Soft, No tenderness, No hepatospenomegaly, No masses Extremities: No clubbing, No cyanosis, No edema, Normal pulses, No tenderness/swelling Skin: No rashes, No breakdown, No significant lesion Neuro: Normal gait, Normal speech, Strength at 5/5 X4 ext, Normal tone, Sensation intact, Cranial nerves 3-12 NL Psych/Mental Status: Mental status NL, Mood NL Labs/Xrays I reviewed labs, imaging CT scan abdomen pelvis, EKG and all diagnostic studies on this patient from ED records and the medical chart Chest x-ray unremarkable Labs Test 01/23/25 06:48 01/23/25 05:38 01/23/25 04:57 Range/Units White Blood Count 7.5 4.4-10.8 10^3/uL Red Blood Count 4.38 L 4.5-5.90 10^6/uL Hemoglobin 14.7 13.5-17.5 g/dL Hematocrit 42.1 41.0-53.0 % Mean Corpuscular Volume 96.0 80.0-100.0 fL Mean Corpuscular Hemoglobin 33.5 H 28.0-32.0 pg Mean Corpuscular Hemoglobin Concent 34.9 32.0-36.0 g/dL Red Cell Distribution Width 13.6 11.8-14.3 % Platelet Count 267 140-450 10^3/uL Mean Platelet Volume 6.4 L 6.9-10.8 fL Neutrophils (%) (Auto) 72.7 37.0-80.0 % Lymphocytes (%) (Auto) 18.4 10.0-50.0 % Monocytes (%) (Auto) 8.3 0.0-12.0 % Eosinophils (%) (Auto) 0.3 0.0-7.0 % Basophils (%) (Auto) 0.3 0.0-2.0 % Neutrophils # (Auto) 5.5 1.6-8.6 10 ^3/uL Lymphocytes # (Auto) 1.4 0.4-5.4 10 ^3/uL Monocytes # (Auto) 0.6 0-1.3 10 ^3/uL Eosinophils # (Auto) 0 0-0.8 10 ^3/uL Basophils # (Auto) 0 0-0.2 10 ^3/uL Nucleated Red Blood Cells 0.0 % Sodium Level 142 136-145 mmol/L Potassium Level 3.5 3.5-5.1 mmol/L Chloride Level 106 98-107 mmol/L Carbon Dioxide Level 23 20-31 mmol/L Anion Gap 13 5-15 Blood Urea Nitrogen 20 9-23 mg/dL Creatinine 1.12 0.700-1.30 mg/dL Glomerular Filtration Rate Calc 70 >90 mL/min BUN/Creatinine Ratio 17.9 10.0-20.0 Serum Glucose 156 H 74-106 mg/dL Calcium Level 10.5 H 8.7-10.4 mg/dL B-Type Natriuretic Peptide 41.22 0-100 pg/mL POC Glucose 131 H 70-106 mg/dl Assessment/Plan Assessment/Plan Acute chest pain r/o acs ekg no stemi trop negative ordered asa atorvastatin ordered Echocardiogram follow-up results if abnormal consult cards ordered ddimer fu results ordered morphine as needed for pain, ordered nitro prn acute hypertension urgency ordered lisinopril 20mg po daily ordered hydralazine prn elevated blood pressure chronic problems htn dm ISS copd asthma depression gerds FEN/PPx protonix No DVT prophylaxis patient is ambulatory SCDs Diet Plan admit to telemetry cards consult follow-up recs Plan discussed with: Patient Date of Service: Jan 23, 2025 Billing Provider: CARMINE ALEXANDRE DNP Common Visit Codes: [id number] INP/OBS CARE (HIGH) CARMINE ALEXANDRE DNP Jan 23, 2025 07:06
[2025-01-23 08:15] VITALS: PULSE 89; RESP 20; O2SAT 94
[2025-01-23] MEDS ORDERED: MORPHINE SULFATE 4 MG/ML SYR/VIAL IV PRN (08:30)
[2025-01-23] MEDS ORDERED: NITROGLYCERIN 0.4 MG SL TAB SL PRN ×2 (08:30)
[2025-01-23] MEDS ORDERED: ONDANSETRON HCL 4 MG/2 ML VIAL IV PRN (08:30)
[2025-01-23] MEDS ORDERED: hydrALAZINE HCL 20 MG/ML VL IV PRN (10:00)
[2025-01-23] MEDS ORDERED: hydrALAZINE HCL 20 MG/ML VL IV ONE (10:00)
[2025-01-23] MEDS ORDERED: PATIENTS OWN MEDICATION (Aspirin 81 MG) PO SCH (10:00)
[2025-01-23] MEDS: DOCUSATE SOD 100 MG CAP PO SCH (10:30)
[2025-01-23] MEDS: LISINOPRIL 20 MG TAB PO SCH (10:31)
[2025-01-23] MEDS: HYDROcodone-ACET 5/325MG TAB PO ONE (10:34)
[2025-01-23 15:07] VITALS: PULSE 63; RESP 14; O2SAT 99
--- NOTE | 2025-01-23 18:26 | ECG ---
[facility] Test Date: 2025-01-23 Test Time: 05:33:58 Pat Name: CAMILA LAL Department: ED Room: [address] [place] [address] A Gender: M Neurosurgical Physician Assistant: : [id number] Requested By: CARMINE ALEXANDRE Order Number: [id number] Reading MD: Jorge Mayorga Measurements Intervals [place] Rate: 102 P: 36 ME: 145 QRS: -60 QRSD: 92 T: 14 QT: 363 QTc: 473 Interpretive Statements Sinus tachycardia Left anterior fascicular block Abnormal R-wave progression, late transition Left ventricular hypertrophy Electronically Signed On 01-23-2025 20:14:32 PDT by Jorge Mayorga Please click the below link to view image of tracing.
[2025-01-23 19:49] VITALS: PULSE 78; RESP 18; O2SAT 98
[2025-01-23] MEDS: ATORVASTATIN 20 MG TAB PO SCH (20:59)
--- NOTE | 2025-01-23 23:20 | DVHSR ---
APPROVED REPORT EXAM: Two-dimensional and M-mode echocardiogram with Doppler and color Doppler. Blood Pressure: 202/115 mmHg INDICATION Chest Pain RISK FACTORS Height: 5'7", Weight: 165 DIMENSIONS LVDd4.2 (3.8-5.7cm)LA (2D)3.6 (1.9-4.0cm)Aortic Root3.3 (2.0-3.7cm) LVDs2.8 (2.5-4.0cm)LA (MM) (1.9-4.0cm)Aortic Cusp Exc1.8 (1.5-2.0cm) EF (%) 60.0 (55-70%)Rt. Atrium3.8 (1.9-4.0cm)Asc. Aorta cm IVSd0.8 (0.7-1.1cm)RV (D) (1.8-2.4cm) PWd0.9 (0.7-1.1cm) Mitral Valve MitralMitral Stenosis E wave0.68m/sMV Mean GR.mmHg A wave0.91m/sMV Peak GR.mmHg E/A ratio0.72D MVAcm2 DECEL [id number] 1/2 Timems Aortic Valve Aortic ValveAortic Stenosis V10.85m/Raffi Mean GR.3mmHg V21.13m/Raffi Peak GR.5mmHg LVOT Diameter2.2 (1.8-2.4cm)Doppler AVA2.86cm2 Pulmonic Valve V20.88m/s Conclusion LV EF IS 65% AND IS NORMAL NORMAL VALVES NORMAL RV FUNCTION AND SIZE NO EFUSION
[2025-01-24] VITALS (7 sets, daily range): BP systolic 113–148; BP diastolic 71–87; PULSE 52–65; RESP 16–18; TEMP 97.7–97.8; O2SAT 0–100
[2025-01-24] MEDS: ACETAMINOPHEN 325 MG TAB PO PRN (04:31)
[2025-01-24 05:36] LABS: Hematocrit 39.0 % (41.0-53.0); Hemoglobin 13.5 g/dL (13.5-17.5); Mean Corpuscular Hemoglobin 33.4 pg (28.0-32.0); Mean Corpuscular Volume 96.4 fL (80.0-100.0); Nucleated Red Blood Cells % 0.0 %
[2025-01-24 05:56] LABS: Alanine Aminotransferase 33 U/L (7-40); Albumin 4.2 g/dL (3.2-4.8); Alkaline Phosphatase 96 U/L (46-116); Anion Gap 9 (5-15); BUN/Creatinine Ratio 18.4 (10.0-20.0); Bilirubin, Total 0.6 mg/dL (0.2-1.0); Blood Urea Nitrogen 16 mg/dL (9-23); Calcium 9.3 mg/dL (8.7-10.4); Carbon Dioxide 28 mmol/L (20-31); Chloride 106 mmol/L (98-107); Potassium 5.0 mmol/L (3.5-5.1); Sodium 143 mmol/L (136-145); Total Protein 6.5 g/dL (5.7-8.2)
[2025-01-24 06:03] LABS: Glucose 111 mg/dL (74-106)
[2025-01-24] MEDS: PANTOPRAZOLE 40 MG TAB PO SCH (08:47)
--- NOTE | 2025-01-24 11:38 | DVHPN2 ---
Subjective Seen and examined at bedside, c/p episodic chest pain. Will get Cardio Eval. Changes from previous H/P or p: No Changes Eyes: No Pain, No Vision change, No Conjunctivae inflammation, No Eyelid inflammation, No Other, No Redness ENT: No Ear pain, No Ear discharge, No Nose pain, No Nose discharge, No Nose congestion, No Mouth pain, No Mouth swelling, No Throat pain, No Throat swelling, No Other Cardiovascular: Chest Pain; No Palpitations, No Orthopnea, No Paroxysmal Noc. Dyspnea, No Edema, No Lt Headedness, No Other Respiratory: No Cough, No Dry, No Shortness of breath, No SOB with excertion, No Wheezing, No Hemoptysis, No Pleuritic Pain, No Sputum, No Other Gastrointestinal: No Nausea, No Vomiting, No Abdominal Pain, No Diarrhea, No Constipation, No Melena, No Hematochezia, No Other Genitourinary: No Dysuria, No Frequency, No Incontinence, No Hematuria, No Retention, No Other Musculoskeletal: No other, No neck pain, No shoulder pain, No arm pain, No back pain, No hand pain, No leg pain, No foot pain Skin: No Rash, No Lesions, No Jaundice, No Bruising, No Other Objective Vitals Vital Signs Date Time Temp Pulse Resp B/P (MAP) Pulse Ox O2 Delivery O2 Flow Rate FiO2 01/24/25 09:00 97.7 59 16 121/79 (93) 100 97.7 01/24/25 08:00 Room Air* 0 21 General Appearance: Alert, Oriented X3, Cooperative, No acute distress Lungs: Clear to auscultation Cardiovascular: Regular rate, Normal S1, Normal S2 Abdomen: Normal bowel sounds, Soft Psych/Mental Status: Mental status NL Medications Current Medications Medications Dose Ordered Sig/Anam Route Start Time Stop Time Status Last Admin Dose Admin Aspirin 81 mg DAILY PO 01/24/25 10:00 01/24/25 08:46 81 MG Atorvastatin Calcium 40 mg HS PO 01/23/25 22:00 01/23/25 20:59 40 MG Morphine Sulfate 2 mg Q30MP PRN IV 01/23/25 08:30 Acetaminophen 325 mg Q4HP PRN PO 01/23/25 08:30 01/24/25 04:31 325 MG Docusate Sodium 100 mg DAILY PO 01/23/25 10:00 01/24/25 08:46 100 MG Nitroglycerin 0.4 mg Q5MINP PRN SL 01/23/25 08:30 Ondansetron HCl 4 mg Q4HP PRN IV 01/23/25 08:30 Patient Own Medication 81 mg DAILY PO 01/23/25 10:00 UNV Divalproex Sodium 500 mg BID PO 01/23/25 11:21 01/24/25 08:46 500 MG Pantoprazole Sodium 40 mg DAILY PO 01/24/25 10:00 01/24/25 08:47 40 MG Lisinopril 20 mg DAILY PO 01/23/25 10:00 01/24/25 08:46 20 MG Hydralazine HCl 10 mg Q6HP PRN IV 01/23/25 10:00 Laboratory Results Laboratory Tests 01/24/25 05:26 Chemistry Test 01/24/25 05:26 Albumin 4.2 g/dL (3.2-4.8) Calcium Level 9.3 mg/dL (8.7-10.4) Total Protein 6.5 g/dL (5.7-8.2) LFT Test 01/24/25 05:26 Alanine Aminotransferase (ALT) 33 U/L (7-40) Alkaline Phosphatase 96 U/L (46-116) Aspartate Amino Transferase (AST) 63 U/L (<34) H Total Bilirubin 0.6 mg/dL (0.2-1.0) Assessment/Plan Assessment/Plan # Chest Pain, R/o ACS - Cardio Cx, Cont ASA # Hypertensive Heart with possible Acute Diastolic CHF - Lasix IV # COPD no exacerbation - Stable # Goals of care discussion >18 mins FULL CODE Plan discussed with: Patient Date of Service: Jan 24, 2025 Billing Provider: EPI YOUSIF MD Common Visit Codes: [id number] INP/OBS CARE(HIGH) Secondary Visit Codes: [id number] CARE PLAN 30 MINUTES EPI YOUSIF MD Jan 24, 2025 11:38
[2025-01-24 12:29] LABS: Triglycerides 118 mg/dL (< 150)
[2025-01-24] MEDS: FUROSEMIDE 20 MG/2 ML VIAL IV ONE (12:30)
[2025-01-24 12:31] LABS: Cholesterol 116 mg/dL (< 200); HDL Cholesterol 53 mg/dL (40-59)
[2025-01-24 13:56] LABS: Urine Protein, UAD Negative (Negative)
[2025-01-24 14:08] LABS: Amphetamine Screen, Urine Neg (NEGATIVE); Barbiturate Scree,Urine Neg (NEGATIVE); Benzodiazephine Screen, Urine Neg (NEGATIVE); Cannabinoid Screen, Urine Neg (NEGATIVE); Cocaine Screen, Urine Neg (NEGATIVE); Opiate Scree,Urine Neg (NEGATIVE); Phencyclidine Screen, Urine Neg (NEGATIVE)
[2025-01-25] VITALS (12 sets, daily range): BP systolic 84–117; BP diastolic 55–76; PULSE 61–82; RESP 14–20; TEMP 97.5–98.2; O2SAT 94–100
[2025-01-25] MEDS: MELATONIN 5 MG TAB PO ONE (02:31)
[2025-01-25] MEDS: MELATONIN 5 MG TAB ONE (02:56)
[2025-01-25] MEDS: IPRATROPIUM BROM 0.5 MG/2.5ML INH SOL NEB PRN (08:41)
[2025-01-25] MEDS: ALBUTEROL SULF 2.5 MG/0.5ML(0.5%) NEB SOLN NEB PRN (08:41)
[2025-01-25] MEDS ORDERED: SERT-160 PO (09:43)
[2025-01-25] MEDS ORDERED: TIOT1AER IN (09:43)
[2025-01-25] MEDS ORDERED: QUET50TA PO (09:43)
[2025-01-25] MEDS ORDERED: FLUT0.05 NAS (09:43)
[2025-01-25] MEDS ORDERED: FLUT1AER17 IN (09:43)
[2025-01-25] MEDS ORDERED: LOSA-533 PO (09:43)
[2025-01-25] MEDS: FUROSEMIDE 20 MG/2 ML VIAL IV SCH (10:00)
--- NOTE | 2025-01-25 13:08 | DVHPN2 ---
Subjective Seen and examined at bedside, needs SNF for rehab Changes from previous H/P or p: No Changes Eyes: No Pain, No Vision change, No Conjunctivae inflammation, No Eyelid inflammation, No Other, No Redness ENT: No Ear pain, No Ear discharge, No Nose pain, No Nose discharge, No Nose congestion, No Mouth pain, No Mouth swelling, No Throat pain, No Throat swelling, No Other Cardiovascular: No Palpitations, No Orthopnea, No Paroxysmal Noc. Dyspnea, No Edema, No Lt Headedness, No Other Respiratory: No Cough, No Dry, No Shortness of breath, No SOB with excertion, No Wheezing, No Hemoptysis, No Pleuritic Pain, No Sputum, No Other Gastrointestinal: No Nausea, No Vomiting, No Abdominal Pain, No Diarrhea, No Constipation, No Melena, No Hematochezia, No Other Genitourinary: No Dysuria, No Frequency, No Incontinence, No Hematuria, No Retention, No Other Musculoskeletal: No other, No neck pain, No shoulder pain, No arm pain, No back pain, No hand pain, No leg pain, No foot pain Skin: No Rash, No Lesions, No Jaundice, No Bruising, No Other Objective Vitals Vital Signs Date Time Temp Pulse Resp B/P (MAP) Pulse Ox O2 Delivery O2 Flow Rate FiO2 01/25/25 10:08 101/60 01/25/25 10:00 94 Room Air* 0 21 01/25/25 08:52 78 14 01/25/25 05:00 97.6 97.6 Intake/Output Intake and Output 01/25/25 07:00 Intake Total 2055 ml Output Total 1600 ml Balance 455 ml Intake Oral 2055 ml Output Urine Total 1600 ml # Voids 9 # Bowel Movements 3 General Appearance: Alert, Oriented X3, Cooperative, No acute distress Lungs: Clear to auscultation Cardiovascular: Regular rate, Normal S1, Normal S2 Abdomen: Normal bowel sounds, Soft Psych/Mental Status: Mental status NL Medications Current Medications Medications Dose Ordered Sig/Anam Route Start Time Stop Time Status Last Admin Dose Admin Aspirin 81 mg DAILY PO 01/24/25 10:00 01/25/25 10:08 81 MG Atorvastatin Calcium 40 mg HS PO 01/23/25 22:00 01/24/25 21:02 40 MG Morphine Sulfate 2 mg Q30MP PRN IV 01/23/25 08:30 Acetaminophen 325 mg Q4HP PRN PO 01/23/25 08:30 01/25/25 11:52 325 MG Docusate Sodium 100 mg DAILY PO 01/23/25 10:00 01/25/25 10:07 100 MG Nitroglycerin 0.4 mg Q5MINP PRN SL 01/23/25 08:30 Ondansetron HCl 4 mg Q4HP PRN IV 01/23/25 08:30 Patient Own Medication 81 mg DAILY PO 01/23/25 10:00 UNV Divalproex Sodium 500 mg BID PO 01/23/25 11:21 01/25/25 10:07 500 MG Pantoprazole Sodium 40 mg DAILY PO 01/24/25 10:00 01/25/25 10:07 40 MG Lisinopril 20 mg DAILY PO 01/23/25 10:00 01/25/25 10:08 20 MG Hydralazine HCl 10 mg Q6HP PRN IV 01/23/25 10:00 Furosemide 20 mg DAILY IV 01/25/25 10:00 Ipratropium Theodore 0.5 mg Q4HPRN PRN NEB 01/25/25 08:30 01/25/25 08:41 0.5 MG Albuterol 2.5 mg Q4HPRN PRN NEB 01/25/25 08:30 01/25/25 08:41 2.5 MG Laboratory Results Laboratory Tests 01/24/25 05:26 Urinalysis Test 01/24/25 13:36 Urine Color Light-yellow (Yellow) Urine Clarity Clear (Clear) Urine pH 6.5 (5.0-9.0) Urine Specific [place] 1.005 (1.001-1.035) Urine Protein Negative (Negative) Urine Ketones Negative (Negative) Urine Blood Negative /uL (Negative) Urine Nitrite Negative (Negative) Urine Bilirubin Negative (Negative) Urine Urobilinogen Normal mg/dL (Negative) Urine Leukocyte Esterase Negative /uL (Negative) Urine RBC 1 /hpf (0 - 3) Urine Microscopic WBC < 1 /HPF (0-3) Urine Squamous Epithelial Cells None seen /hpf (<5) Urine Bacteria None seen /hpf (None Seen) Urine Sperm Present /hpf (None Seen) Urine Glucose Normal mg/dL (Normal) Assessment/Plan Assessment/Plan # Chest Pain, Ruled out ACS - Cardio Cx, Cont ASA # Hypertensive Heart with possible Acute Diastolic CHF - Lasix IV # COPD no exacerbation - Stable # Deconditioned- PT, SNF eval # Goals of care discussion >18 mins FULL CODE Plan discussed with: Patient My Orders Orders - EPI YOSUIF MD Procedure Category Date Status Time Ipratropium Medneb PHA 01/25/25 In Process (Atrovent Medneb) 08:30 Albuterol Medneb PHA 01/25/25 In Process (Ventolin Medneb) 08:30 * Special Library Librarian CONS 01/25/25 Transmitted Consult Discontinue Tele DEE DEE 01/25/25 Verified 13:04 Date of Service: Jan 25, 2025 Billing Provider: EPI YOUSIF MD Common Visit Codes: [id number] INP/OBS CARE(HIGH) EPI YOUSIF MD Jan 25, 2025 13:08
[2025-01-26] MEDS: MELATONIN 5 MG TAB PO ONE (00:45)
[2025-01-26 01:00] VITALS: BP 124/70; PULSE 65; RESP 20; TEMP 98.1; O2SAT 99
[2025-01-26 05:00] VITALS: BP 98/69; PULSE 69; RESP 20; TEMP 98.3; O2SAT 97
[2025-01-26 07:31] VITALS: O2SAT 95
[2025-01-26 09:00] VITALS: BP 113/78; PULSE 91; RESP 17; TEMP 98; O2SAT 98
[2025-01-26 10:00] VITALS: O2SAT 95
--- NOTE | 2025-01-26 12:33 | DVHDS2 ---
Discharge Summary Date of Admission Jan 23, 2025 at 08:26 Date of Discharge: Jan 26, 2025 Labs/Diagnostic Data: Laboratory Results Test 01/24/25 13:36 01/24/25 05:26 01/23/25 08:40 01/23/25 05:38 Urine Color Light-yellow (Yellow) Urine Clarity Clear (Clear) Urine pH 6.5 (5.0-9.0) Urine Specific [place] 1.005 (1.001-1.035) Urine Protein Negative (Negative) Urine Ketones Negative (Negative) Urine Blood Negative /uL (Negative) Urine Nitrite Negative (Negative) Urine Bilirubin Negative (Negative) Urine Urobilinogen Normal mg/dL (Negative) Urine Leukocyte Esterase Negative /uL (Negative) Urine RBC 1 /hpf (0 - 3) Urine Microscopic WBC < 1 /HPF (0-3) Urine Squamous Epithelial Cells None seen /hpf (<5) Urine Bacteria None seen /hpf (None Seen) Urine Sperm Present /hpf (None Seen) Urine Glucose Normal mg/dL (Normal) Urine Opiates Screen Neg (NEGATIVE) Urine Fentanyl Screen Neg (NEGATIVE) Urine Barbiturates Screen Neg (NEGATIVE) Urine Phencyclidine Screen Neg (NEGATIVE) Urine Amphetamines Screen Neg (NEGATIVE) Urine Benzodiazepines Screen Neg (NEGATIVE) Urine Cocaine Screen Neg (NEGATIVE) Urine Cannabinoids Screen Neg (NEGATIVE) White Blood Count 4.5 10^3/uL (4.4-10.8) Red Blood Count 4.05 10^6/uL (4.5-5.90) Hemoglobin 13.5 g/dL (13.5-17.5) Hematocrit 39.0 % (41.0-53.0) Mean Corpuscular Volume 96.4 fL (80.0-100.0) Mean Corpuscular Hemoglobin 33.4 pg (28.0-32.0) Mean Corpuscular Hemoglobin Concent 34.6 g/dL (32.0-36.0) Red Cell Distribution Width 13.3 % (11.8-14.3) Platelet Count 200 10^3/uL (140-450) Mean Platelet Volume 6.1 fL (6.9-10.8) Neutrophils (%) (Auto) 56.0 % (37.0-80.0) Lymphocytes (%) (Auto) 28.7 % (10.0-50.0) Monocytes (%) (Auto) 12.0 % (0.0-12.0) Eosinophils (%) (Auto) 3.0 % (0.0-7.0) Basophils (%) (Auto) 0.3 % (0.0-2.0) Neutrophils # (Auto) 2.5 10 ^3/uL (1.6-8.6) Lymphocytes # (Auto) 1.3 10 ^3/uL (0.4-5.4) Monocytes # (Auto) 0.5 10 ^3/uL (0-1.3) Eosinophils # (Auto) 0.1 10 ^3/uL (0-0.8) Basophils # (Auto) 0 10 ^3/uL (0-0.2) Nucleated Red Blood Cells 0.0 % Sodium Level 143 mmol/L (136-145) Potassium Level 5.0 mmol/L (3.5-5.1) Chloride Level 106 mmol/L (98-107) Carbon Dioxide Level 28 mmol/L (20-31) Anion Gap 9 (5-15) Blood Urea Nitrogen 16 mg/dL (9-23) Creatinine 0.87 mg/dL (0.700-1.30) Glomerular Filtration Rate Calc 92 mL/min (>90) BUN/Creatinine Ratio 18.4 (10.0-20.0) Serum Glucose 111 mg/dL (74-106) Hemoglobin A1c 5.1 % A1C (<5.7) Calcium Level 9.3 mg/dL (8.7-10.4) Total Bilirubin 0.6 mg/dL (0.2-1.0) Aspartate Amino Transferase (AST) 63 U/L (<34) Alanine Aminotransferase (ALT) 33 U/L (7-40) Alkaline Phosphatase 96 U/L (46-116) Total Protein 6.5 g/dL (5.7-8.2) Albumin 4.2 g/dL (3.2-4.8) Triglycerides Level 118 mg/dL (< 150) Cholesterol Level 116 mg/dL (< 200) LDL Cholesterol 49 mg/dL (< 100) HDL Cholesterol 53 mg/dL (40-59) Thyroid Stimulating Hormone (TSH) 4.01 uIU/mL (0.55-4.78) Troponin I High Sensitivity 17 ng/L (</=54) B-Type Natriuretic Peptide 41.22 pg/mL (0-100) Test 01/23/25 04:57 POC Glucose 131 mg/dl (70-106) Other Laboratory Tests 01/24/25 05:26 Brief Hx & Hospital Course: Patient is a 69 year-old M who presented to the hospital for chest pain. Patient was seen in cardiology consult, no evidence of ACS. Patient was being discharged home but reports he wants to go to SNF but then patient refused. Patient became verbally aggressive towards staff. Patient is being discharged. Condition at Discharge: Poor Final Diagnosis/Problems List # Chest Pain, Ruled out ACS # Hypertensive Heart with possible Acute Diastolic CHF # COPD no exacerbation - Stable # Deconditioned- Refused SNF # Goals of care discussion >18 mins FULL CODE Discharge Disposition: Assisted Discharge Instruct/Medications Diet: Regular Activity: Light activity Scheduled Aspirin (Aspirin), 81 MG PO DAILY, (Reported) Beclomethasone Dipropionate (Qvar), 40 MCG IN BID, (Reported) Divalproex Sodium (Divalproex Sodium), 500 MG PO BID, (Reported) Fluticasone Propionate (Fluticasone Propionate), 50 MCG JUANCHO BID, (Reported) Zsvipeiocao-Lmeiygyibwal-Tzznw (Trelegy Ellipta 200-62.5-25 Mcg/INH), 1 AER IN BID, (Reported) Glipizide (Glipizide), 5 MG PO BID, (Reported) Lansoprazole (Lansoprazole), 30 MG PO DAILY, (Reported) Losartan Potassium (Losartan Potassium), 1 TAB PO DAILY, (Reported) Metformin Hydrochloride (Glucophage), 850 MG PO BID, (Reported) Quetiapine Fumerate (Seroquel), 400 MG PO DAILY, (Reported) Sertraline Hcl (Sertraline Hcl), 1 TAB PO DAILY, (Reported) Tiotropium [place]-Olodaterol (Stiolto Respimat 2.5-2.5 Mcg/Act), 1 AER IN DAILY, (Reported) Verapamil Hcl (Verapamil Hcl Er), 180 MG PO DAILY, (Reported) Scheduled PRN Baclofen (Baclofen), 10 MG PO BID PRN for FOR MUSCLE SPASM, (Reported) Oxycodone Hcl (Roxicodone), 5 MG PO Q6HPRN PRN for MODERATE PAIN, (Reported) Discontinued Medications Cyclobenzaprine HCl (Cyclobenzaprine Hydrochlo), 5 MG PO BID PRN Hydrocodone-Acetaminophen (Hydrocodone/Acetaminophen), 1 TAB PO Q6HP PRN for MODERATE PAIN, (Reported) Discharge Statement: "Patient was advised to return to the ER or call 911 if any headaches, dizziness, shortness of breath, chest pain, abdominal pain, bleeding, fevers, or worsening of medical condition. Patient was counseled about treatment plan, medications, possible side effects, patientverbalized understanding. All questions were answered to the best of my ability. This discharge took greater then 30 minutes in planning, reviewing documentation, counseling the patient, and discussing with other team members." ASSESSMENT ASSESSMENT Assessment Date of Service: Jan 26, 2025 Billing Provider: EPI YOUSIF MD Common Visit Codes: [id number] DISCH DAY >30min EPI YOUSIF MD Jan 26, 2025 12:33
[2025-01-26 13:00] VITALS: BP 116/71; PULSE 77; RESP 17; TEMP 98.1; O2SAT 98
== END 2025-01-26 15:20 | disposition home or self-care (01) | DRG 291 ==
LOC: ER 04:28 → OVERFLOW 08:26 → TELE-WESTW 01-24 06:20 → WEST WING 01-25 17:36
PROVIDERS: ADMIT Internal Medicine; ATTEND Internal Medicine
DX: I11.0 Hypertensive heart disease with heart failure (principal); I50.31 Acute diastolic (congestive) heart failure; I16.1 Hypertensive emergency; E11.9 Type 2 diabetes mellitus without complications; F32.A Depression, unspecified; K21.9 Gastro-esophageal reflux disease without esophagitis; J44.89 Other specified chronic obstructive pulmonary disease; Z88.8 Allergy status to other drugs, medicaments and biological substances; Z79.899 Other long term (current) drug therapy; Z90.49 Acquired absence of other specified parts of digestive tract; Z79.84 Long term (current) use of oral hypoglycemic drugs; Z79.82 Long term (current) use of aspirin
CPT/HCPCS: 36415; 71045; 80048; 80053; 80061; 80307; 81001; 82962; 83036; 83880; 84443; 84484; 85025; 87081; 93005; 93306; 94640; 99291; G0378

== ENCOUNTER 2025-01-26 16:38 | Emergency (ER) | payer MEDICARE, MEDICAID ==
[~2025-01-26] VITALS: Ht 170.2 cm; Wt 72.0 kg
[~2025-01-26 16:38] MED LIST changes: -CEPH-510 PO; +FLUT0.05 NAS; +FLUT1AER17 IN; +LOSA-533 PO; -PRED20TA2 PO; -QUET150T2 PO; +QUET50TA PO; +SERT-160 PO; +TIOT1AER IN
--- NOTE | 2025-01-26 16:43 | ED.PDOC ---
History of Present Illness HPI Comments 69 year old male with a Hx of Depression, COPD, DM, and HTN presents to the ED for the c/c of Generalized Weakness. Per [facility] security, pt had barricaded himself in the restroom 1x hour ago after being told he was going to be discharged from the hospital. When being escorted off the property pt proceeded to "fall" and pretended to be unconscious. No other symptoms or modifying factors reported at this time. Patient is alert and oriented x4 and has a stable gait. Time Seen by MD: 16:41 Primary Care Provider: THOMAS Reviewed Notes: Nurses Notes, Medications, Allergies Allergies: Coded Allergies: Ketorolac (Verified Allergy, Mild, 10/24/10) Tromethamine (Verified Allergy, Mild, 10/24/10) Home Meds Reported Medications Tiotropium [place]-Olodaterol (Stiolto Respimat 2.5-2.5 Mcg/Act) 1 Aer Aer, 1 AER IN DAILY, AER 01/25/25 Dbkprgataac-Gkronnynhxkz-Lbifo (Trelegy Ellipta 200-62.5-25 Mcg/INH) 1 Aer Aer, 1 AER IN BID, AER 01/25/25 Losartan Potassium (Losartan Potassium) 25 Mg Tab, 1 TAB PO DAILY, #90 TAB 1 Refill 01/25/25 Quetiapine Fumerate (Seroquel) 50 Mg Tab, 400 MG PO DAILY for 30 Days, MG 01/25/25 Sertraline Hcl (Sertraline Hcl) 100 Mg Tab, 1 TAB PO DAILY, #90 TAB 1 Refill 01/25/25 Fluticasone Propionate (Fluticasone Propionate) 0.05 % Cre, 50 MCG JUANCHO BID for 30 Days, MCG 01/25/25 Beclomethasone Dipropionate (Qvar) 40 Mcg Aer, 40 MCG IN BID, AER 2 PUFFS BID 12/16/13 Baclofen (Baclofen) 10 Mg Tab, 10 MG PO BID PRN for FOR MUSCLE SPASM, MG 12/16/13 Divalproex Sodium (Divalproex Sodium) 500 Mg Tab, 500 MG PO BID, MG 12/16/13 Metformin Hydrochloride (Glucophage) 850 Mg Tab, 850 MG PO BID, TAB 12/16/13 Aspirin (Aspirin) 81 Mg Chw, 81 MG PO DAILY, CHW 12/16/13 Lansoprazole (Lansoprazole) 30 Mg Cap, 30 MG PO DAILY, CAP 12/16/13 Oxycodone Hcl (Roxicodone) 5 Mg Tab, 5 MG PO Q6HPRN PRN for MODERATE PAIN, TAB 12/16/13 Verapamil Hcl (Verapamil Hcl Er) 180 Mg Tab, 180 MG PO DAILY, TAB 12/16/13 Glipizide (Glipizide) 5 Mg Tab, 5 MG PO BID, MG 12/16/13 Discontinued Reported Medications Hydrocodone-Acetaminophen (Hydrocodone/Acetaminophen) 1 Tab Tab, 1 TAB PO Q6HP PRN for MODERATE PAIN, TAB 12/16/13 Discontinued Scripts Cyclobenzaprine HCl (Cyclobenzaprine Hydrochlo) 5 Mg Tab, 5 MG PO BID PRN for 7 Days, #14 TAB Prov:EFE JOSHUA MD 08/25/24 Information Source: Patient Mode of Arrival: Wheelchair Severity: Mild Timing: Hours Duration: Since onset, Hours Prehospital treatment: None Past Medical History PAST MEDICAL HISTORY: Asthma, COPD, Depression, DM, GERD, HTN Surgical History: Cholecystectomy Family History Family History: Reviewed,noncontributory to illness Social History Smoker: Non-Smoker Alcohol: Denies ETOH Use Drugs: Denies Drug Use Lives In: Home Constitutional: denies: chills, diaphoresis, fatigue, fever, malaise, sweats, weakness, others EENTM: denies: blurred vision, double vision, ear bleeding, ear discharge, ear drainage, ear pain, ear ringing, eye pain, eye redness, hearing loss, mouth p ain, mouth swelling, nasal discharge, nose bleeding, nose congestion, nose pain, photophobia, tearing, throat pain, throat swelling, voice changes, others Respiratory: denies: cough, hemoptysis, orthopnea, SOB at rest, shortness of br eath, SOB with excertion, stridor, wheezing, others Cardiovascular: reports: chest pain; denies: dizzy spells, diaphoresis, Dyspnea on exertion, edema, irregular heart beat, left arm pain, lightheadedness, palpitations, PND, syncope, others Gastrointestinal: denies: abdomen distended, abdominal pain, blood streaked sandra wels, constipated, diarrhea, dysphagia, difficulty swallowing, hematemesis, melena, nausea, poor appetite, poor fluid intake, rectal bleeding, rectal pain, vomiting, others Genitourinary: denies: burning, dysuria, flank pain, frequency, hematuria, incontinence, penile discharge, penile sore, pain, testicle pain, testicle swelling, urgency, others Neurological: denies: dizziness, fainting, headache, left sided numbness, left sided weakness, numbness, paresthesia, pre-existing deficit, right sided numbness, right sided weakness, seizure, speech problems, tingling, tremors, weakness, others Musculoskeletal: denies: back pain, gout, joint pain, joint swelling, muscle pain, muscle stiffness, neck pain, others Integumetry: denies: bruises, change in color, change in hair/nails, dryness, laceration, lesions, lumps, rash, wounds, others Allergic/Immunocompromised: denies: Difficulty Healing, Frequent Infections, Hives, Itching, others Hematologic/Lymphatic: denies: anemia, blood clots, easy bleeding, easy bruisin g, swollen glands, others Endocrine: denies: excessive hunger, excessive sweating, excessive thirst, excessive urination, flushing, intolerance to cold, intolerance to heat, unexplained weight gain, unexplained weight loss, others Psychiatric: denies: anxiety, bipolar disorder, depression, hopeless, panic disorder, schizophrenia, sleepless, suicidal, others All Other Systems: Reviewed and Negative Physical Exam General Appearance: No Apparent Distress HEENT: Normal ENT Inspection, Pharynx Normal, TMs Normal Neck: Full Range of Motion, Non-Tender, Normal, Normal Inspection Respiratory: Chest Non-Tender, Lungs Clear, No Accessory Muscle Use, No Respiratory Distress, Normal Breath Sounds Cardiovascular: No Edema, No JVD, No Murmur, No Gallop, Tachycardia Breast Exam: Deferred Gastrointestinal: No Organomegaly, Non Tender, No Pulsatile Mass, Normal Bowel Sounds, Soft Genitalia: Deferred Pelvic: Deferred Rectal: Deferred Extremities: No calf tenderness, Normal capillary refill, Normal inspection, Normal range of motion, Non-tender, No pedal edema Musculoskeletal : Apperance: Normal Neurologic: Alert, greige goods inspector II-XII nml as Tested, No Motor Deficits, Normal Affect, Normal Mood, No Sensory Deficits Cerebellar Function: Normal Reflexes: Normal Skin: Dry, Normal Color, Warm Lymphatic: No Adenopathy Was a procedure done? Was a procedure done?: No EKG EKG : Pulse Rate (adult): 117 Cardiac Rhythm: ST Block: None ST: Nonsp Differential Dx Considerations may include: ACS, NM, acute myocardial ischemia, PE, costochondritis X-Ray, Labs, Meds, VS Vital Signs Date Time Temp Pulse Resp B/P (MAP) Pulse Ox O2 Delivery O2 Flow Rate FiO2 01/26/25 16:51 117 01/26/25 16:48 98.1 114 18 120/76 (91) 97 98.1 01/26/25 16:41 117 Lab Test 01/26/25 18:20 01/26/25 16:54 Range/Units Troponin I High Sensitivity Pending 6 </=54 ng/L White Blood Count 16.5 #H 4.4-10.8 10^3/uL Red Blood Count 4.60 4.5-5.90 10^6/uL Hemoglobin 15.3 13.5-17.5 g/dL Hematocrit 43.8 # 41.0-53.0 % Mean Corpuscular Volume 95.1 80.0-100.0 fL Mean Corpuscular Hemoglobin 33.2 H 28.0-32.0 pg Mean Corpuscular Hemoglobin Concent 34.9 32.0-36.0 g/dL Red Cell Distribution Width 13.5 11.8-14.3 % Platelet Count 271 140-450 10^3/uL Mean Platelet Volume 6.5 L 6.9-10.8 fL Neutrophils (%) (Auto) 86.8 H 37.0-80.0 % Lymphocytes (%) (Auto) 6.0 L 10.0-50.0 % Monocytes (%) (Auto) 6.5 0.0-12.0 % Eosinophils (%) (Auto) 0.3 0.0-7.0 % Basophils (%) (Auto) 0.4 0.0-2.0 % Neutrophils # (Auto) 14.3 H 1.6-8.6 10 ^3/uL Lymphocytes # (Auto) 1.0 0.4-5.4 10 ^3/uL Monocytes # (Auto) 1.1 0-1.3 10 ^3/uL Eosinophils # (Auto) 0 0-0.8 10 ^3/uL Basophils # (Auto) 0.1 0-0.2 10 ^3/uL Nucleated Red Blood Cells 0.0 % D-Dimer, Quantitative 0.43 0.0-0.49 mg/L FEU Sodium Level 136 # 136-145 mmol/L Potassium Level 4.8 3.5-5.1 mmol/L Chloride Level 99 98-107 mmol/L Carbon Dioxide Level 24 20-31 mmol/L Anion Gap 13 5-15 Blood Urea Nitrogen 26 H 9-23 mg/dL Creatinine 1.61 H 0.700-1.30 mg/dL Glomerular Filtration Rate Calc 45 >90 mL/min BUN/Creatinine Ratio 16.1 10.0-20.0 Serum Glucose 136 H 74-106 mg/dL Calcium Level 9.8 8.7-10.4 mg/dL IMPRESSION: Mild pulmonary vasculature congestion The patient's D-dimer is negative The CBC shows an elevated white blood cell count of 16.5 The chemistry panel shows a BUN of 26 and a creatinine of 1.61 At this time, the patient is being discharged The patient will follow up with his primary care doctor Images Reviewed?: Images reviewed and evaluated by me Time of 1ST Reevaluation: 17:12 Reevaluation 1ST: Unchanged Patient Education/Counseling: Diagnosis, Treatment, Prognosis, Need For Follow Up Family Education/Counseling: No Family Present SEPSIS Sepsis Screen Physician Orders Urinalysis (01/26/25 16:49) Electrocardigram (01/26/25 16:49) Troponin-I Hs (01/26/25 17:49) Troponin-I Hs (01/26/25 19:49) Electrocardigram (01/26/25 17:49) Electrocardigram (01/26/25 19:49) Heplock Iv (01/26/25 ) Chest Xray 1 View (01/26/25 16:49) Vital Signs Date Time Temp Pulse Resp B/P (MAP) Pulse Ox O2 Delivery O2 Flow Rate FiO2 01/26/25 16:51 117 01/26/25 16:48 98.1 114 18 120/76 (91) 97 98.1 01/26/25 16:41 117 Laboratory Tests Test 01/26/25 16:54 White Blood Count 16.5 10^3/uL (4.4-10.8) #H Departure 1 Departure Time of Disposition: 18:58 Impression: Primary Impression: Non-cardiac chest pain Additional Impression: Acute anxiety Disposition: 01 HOME / SELF CARE / HOMELESS Condition: Fair Discharged With: Self Critical Care Note Critical Care Time?: No Stability Stability form required: No Heart Score Heart Score: Heart Score Response (Comments) Value History N/A 0 EKG N/A 0 Age >65 2 Risk Factors N/A 0 Troponin N/A 0 Total 2 I personally scribed for EFREN KEE MD ([email or web address]) on 01/26/25 at 16:43. Electronically submitted by Cash Salazar ([email or web address]). I personally scribed for EFREN KEE MD ([email or web address]) on 01/26/25 at 16:46. Electronically submitted by Cash Salazar ([email or web address]). I personally scribed for EFREN KEE MD ([email or web address]) on 01/26/25 at 18:28. Electronically submitted by Cash Salazar ([email or web address]). EFREN KEE MD Jan 26, 2025 16:43
[2025-01-26 16:48] VITALS: BP 120/76; RESP 18; TEMP 98.1; O2SAT 97
[2025-01-26 16:51] VITALS: PULSE 117
[2025-01-26 17:06] LABS: Hematocrit 43.8 % (41.0-53.0); Hemoglobin 15.3 g/dL (13.5-17.5); Mean Corpuscular Hemoglobin 33.2 pg (28.0-32.0); Mean Corpuscular Volume 95.1 fL (80.0-100.0); Nucleated Red Blood Cells % 0.0 %
[2025-01-26 17:18] LABS: Chloride 99 mmol/L (98-107); Potassium 4.8 mmol/L (3.5-5.1)
[2025-01-26 17:19] LABS: Anion Gap 13 (5-15); Calcium 9.8 mg/dL (8.7-10.4); Carbon Dioxide 24 mmol/L (20-31)
[2025-01-26 17:21] LABS: Sodium 136 mmol/L (136-145)
[2025-01-26 17:24] LABS: BUN/Creatinine Ratio 16.1 (10.0-20.0)
[2025-01-26 17:27] LABS: Blood Urea Nitrogen 26 mg/dL (9-23); Glucose 136 mg/dL (74-106)
--- NOTE | 2025-01-26 18:17 | DVH ---
CHEST RADIOGRAPH Indication: chest pain Technique: Single frontal view of the chest was obtained Comparison: None FINDINGS: The cardiac silhouette is unremarkable. The lungs demonstrate no pulmonary airspace consolidation. Th e pulmonary vasculature is mildly prominent. There is no pleural effusion.. There is no pneumothorax. IMPRESSION: Mild pulmonary vasculature congestion
[2025-01-26] MEDS: SODIUM CHLORIDE 0.9% 1,000 ML IV ONE (19:47)
--- NOTE | 2025-01-27 01:36 | ECG ---
[facility] Test Date: 2025-01-26 Test Time: 16:41:28 Pat Name: CAMILA LAL Department: ER Room: Gender: M Investigator Claims: : 1955 Requested By: EFREN KEE Order Number: [id number] Reading MD: Jorge Mayorga Measurements Intervals [place] Rate: 117 P: 45 MS: 133 QRS: -55 QRSD: 85 T: 52 QT: 320 QTc: 447 Interpretive Statements Sinus tachycardia Left anterior fascicular block Abnormal R-wave progression, late transition Electronically Signed On 01-29-2025 9:50:00 PDT by Jorge Mayorga Please click the below link to view image of tracing.
== END 2025-01-26 19:47 | disposition home or self-care (01) ==
LOC: ER 16:42
DX: R07.89 Other chest pain (principal); F41.9 Anxiety disorder, unspecified; J45.909 Unspecified asthma, uncomplicated; F32.A Depression, unspecified; E11.9 Type 2 diabetes mellitus without complications; I10 Essential (primary) hypertension; J44.89 Other specified chronic obstructive pulmonary disease; Z79.51 Long term (current) use of inhaled steroids; Z79.82 Long term (current) use of aspirin; Z79.84 Long term (current) use of oral hypoglycemic drugs; Z79.899 Other long term (current) drug therapy; Z90.49 Acquired absence of other specified parts of digestive tract
CPT/HCPCS: 36415; 71045; 80048; 84484; 85025; 85379; 93005

== ENCOUNTER 2025-02-11 01:39 | Inpatient (IN) | payer MEDICARE, MEDICAID ==
[~2025-02-11] VITALS: Ht 170.2 cm; Wt 68.8 kg
[2025-02-11] VITALS (11 sets, daily range): BP systolic 140–151; BP diastolic 77–88; PULSE 50–80; RESP 16–20; TEMP 97.8–98.3; O2SAT 97–100
[~2025-02-11 01:39] MED LIST changes: -CYCL-614 PO; -[UNRECOGNIZED DRUG - CODE] PO
--- NOTE | 2025-02-11 02:10 | ED.PDOC ---
History of Present Illness HPI Comments 69 year old male presents to the ED with a chief complaint of LT side body pain onset 1 day. Patient states he has been experiencing LT arm, LT leg, LT groin pain for the past day as well as headache, chest pain, shortness of breath, blurry vision, generalized weakness. Patient is a poor historian. PMHx COPD, asthma, HTN, DM, HLD, bipolar disorder. Denies nausea, vomiting, diarrhea, constipation, abdominal pain, fevers. No other symptoms or modifying factors present at this time. Chief Complaint: Body Pain Time Seen by MD: 01:50 Primary Care Provider: THOMAS Reviewed Notes: Medications, Allergies Allergies: Coded Allergies: Ketorolac (Verified Allergy, Mild, 10/24/10) Tromethamine (Verified Allergy, Mild, 10/24/10) Home Meds Reported Medications Tiotropium [place]-Olodaterol (Stiolto Respimat 2.5-2.5 Mcg/Act) 1 Aer Aer, 1 AER IN DAILY, AER 01/25/25 Ielqytlulli-Kipxfssokyss-Nrkpd (Trelegy Ellipta 200-62.5-25 Mcg/INH) 1 Aer Aer, 1 AER IN BID, AER 01/25/25 Losartan Potassium (Losartan Potassium) 25 Mg Tab, 1 TAB PO DAILY, #90 TAB 1 Refill 01/25/25 Quetiapine Fumerate (Seroquel) 50 Mg Tab, 400 MG PO DAILY for 30 Days, MG 01/25/25 Sertraline Hcl (Sertraline Hcl) 100 Mg Tab, 1 TAB PO DAILY, #90 TAB 1 Refill 01/25/25 Fluticasone Propionate (Fluticasone Propionate) 0.05 % Cre, 50 MCG JUANCHO BID for 30 Days, MCG 01/25/25 Beclomethasone Dipropionate (Qvar) 40 Mcg Aer, 40 MCG IN BID, AER 2 PUFFS BID 12/16/13 Baclofen (Baclofen) 10 Mg Tab, 10 MG PO BID PRN for FOR MUSCLE SPASM, MG 12/16/13 Divalproex Sodium (Divalproex Sodium) 500 Mg Tab, 500 MG PO BID, MG 12/16/13 Metformin Hydrochloride (Glucophage) 850 Mg Tab, 850 MG PO BID, TAB 12/16/13 Aspirin (Aspirin) 81 Mg Chw, 81 MG PO DAILY, CHW 5/21/14 Lansoprazole (Lansoprazole) 30 Mg Cap, 30 MG PO DAILY, CAP 12/16/13 Oxycodone Hcl (Roxicodone) 5 Mg Tab, 5 MG PO Q6HPRN PRN for MODERATE PAIN, TAB 12/16/13 Verapamil Hcl (Verapamil Hcl Er) 180 Mg Tab, 180 MG PO DAILY, TAB 12/16/13 Glipizide (Glipizide) 5 Mg Tab, 5 MG PO BID, MG 12/16/13 Information Source: Patient Mode of Arrival: Ambulatory Severity: Moderate Timing: Days Duration: Since onset Prehospital treatment: None Vital Signs Vital Signs Date Time Temp Pulse Resp B/P (MAP) Pulse Ox O2 Delivery O2 Flow Rate FiO2 02/11/25 02:10 67 02/11/25 01:59 97.9 16 143/79 (100) 100 97.9 Physical Exam PHYSICAL EXAM: General: Awake, alert and oriented. No acute distress. Skin: Skin in warm, dry and intact. Appropriate color for ethnicity. HEENT: The head is normocephalic and atraumatic. Conjunctivae are clear without exudates or hemorrhage. Sclera is non-icteric. EOM are intact. No signs of nystagmus. Eyelids are normal in appearance without swelling or lesions. Oral mucosa is pink and moist Neck: The neck is supple with normal range of motion. No JVD. Cardiac: Heart rate and rhythm are normal. No murmurs, gallops, or rubs are auscultated. Respiratory: No signs of respiratory distress. Lung sounds are clear in all lobes bilaterally without rales, rhonchi, or wheezes. : Right inguinal tenderness. No mass or hernia. No overlying skin changes. Abdominal: Abdomen is soft, non-tender without distention, guarding or rigidity. Bowel sounds are present and normoactive in all four quadrants. Extremities: Upper and lower extremities are atraumatic in appearance without deformity or edema. Patient reports bilateral shoulder joint pain with movement. Neurological: The patient is awake, alert and oriented to person, place, and time with normal speech. Speech is clear. There is no facial asymmetry. Generalized upper and lower extremity weakness. Skin: No rash. Review of Systems: As stated in HPI Past Medical History PAST MEDICAL HISTORY: Asthma, COPD, Depression, DM, GERD, HTN Past Medical History (Other): bipolar disorder Surgical History: Cholecystectomy Family History Family History: Reviewed,noncontributory to illness Social History Smoker: Non-Smoker Alcohol: Denies ETOH Use Drugs: Denies Drug Use Lives In: Home Was a procedure done? Was a procedure done?: No EKG EKG : Pulse Rate (adult): 67 Cardiac Rhythm: NSR Comments No STEMI X-Ray, Labs, Meds, VS Vital Signs Date Time Temp Pulse Resp B/P (MAP) Pulse Ox O2 Delivery O2 Flow Rate FiO2 02/11/25 02:10 67 02/11/25 01:59 97.9 86 16 143/79 (100) 100 97.9 Lab Test 02/11/25 01:56 02/11/25 01:55 Range/Units POC Glucose 114 H 70-106 mg/dl White Blood Count 6.5 4.4-10.8 10^3/uL Red Blood Count 4.13 L 4.5-5.90 10^6/uL Hemoglobin 13.9 13.5-17.5 g/dL Hematocrit 40.3 L 41.0-53.0 % Mean Corpuscular Volume 97.6 80.0-100.0 fL Mean Corpuscular Hemoglobin 33.7 H 28.0-32.0 pg Mean Corpuscular Hemoglobin Concent 34.5 32.0-36.0 g/dL Red Cell Distribution Width 13.4 11.8-14.3 % Platelet Count 265 140-450 10^3/uL Mean Platelet Volume 6.7 L 6.9-10.8 fL Neutrophils (%) (Auto) 66.3 37.0-80.0 % Lymphocytes (%) (Auto) 23.5 10.0-50.0 % Monocytes (%) (Auto) 8.7 0.0-12.0 % Eosinophils (%) (Auto) 0.6 0.0-7.0 % Basophils (%) (Auto) 0.9 0.0-2.0 % Neutrophils # (Auto) 4.3 1.6-8.6 10 ^3/uL Lymphocytes # (Auto) 1.5 0.4-5.4 10 ^3/uL Monocytes # (Auto) 0.6 0-1.3 10 ^3/uL Eosinophils # (Auto) 0 0-0.8 10 ^3/uL Basophils # (Auto) 0.1 0-0.2 10 ^3/uL Nucleated Red Blood Cells 0.1 % Sodium Level Pending Potassium Level Pending Chloride Level Pending Carbon Dioxide Level Pending Anion Gap Pending Blood Urea Nitrogen Pending Creatinine Pending Glomerular Filtration Rate Calc Pending BUN/Creatinine Ratio Pending Serum Glucose Pending Lactic Acid Level 1.4 0.4-2.0 mmol/L Calcium Level Pending Magnesium Level Pending Total Bilirubin Pending Aspartate Amino Transferase (AST) Pending Alanine Aminotransferase (ALT) Pending Alkaline Phosphatase Pending Troponin I High Sensitivity 8 </=54 ng/L B-Type Natriuretic Peptide 70.00 0-100 pg/mL Total Protein Pending Albumin Pending Lipase Pending Thyroid Stimulating Hormone (TSH) 4.43 0.55-4.78 uIU/mL Plasma/Serum Blood Alcohol Pending PATIENT: CAMILA LAL RACCT: [id number]: [id number] : 1955 LOC: ER ROOM / BED: / AGE / SEX: 69 / M ADM STATUS: REG ER SERVICE 4 ORDERING PHYSICIAN: KIERSTEN HICKEY MD PROCEDURE(s): CXR1 - CHEST XRAY 1 VIEW REASON: AMS ORDER NUMBER(s): [id number], ACCESSION NUMBER(s): [id number] CHEST RADIOGRAPH Indication: AMS Technique: Single frontal view of the chest was obtained COMPARISON: XY CHEST XRAY 1 VIEW on DOS: 01/26/25, XY CHEST PORTABLE on DOS: 01/23/25 FINDINGS: Lines and Tubes: None Lungs: Clear Pleura: No effusion. No pneumothorax. Cardiomediastinal contours: Unremarkable Bones: Unremarkable IMPRESSION: 1. No acute disease. : CT HEAD WITHOUT CONTRAST INDICATION: Headache, left upper extremity weakness x1 day TECHNIQUE: CT of the head without intravenous contrast. Radiation Dose : 1. Head: CT Dose: CTDI volume is 57.79 mGy. Dose-length product is 1138.76 mGy*cm The dose indicators for CT are the volume Computed Tomography (CT) Dose Index (CTDIvol) and the Dose Length Product (DLP), and are measured in units of mGy and mGy-cm, respectively. These indicators are not patient dose, but values generated from the CT scanner acquisition factors. The report includes radiation exposure data for exposures received during this examination. COMPARISON: None FINDINGS: There is no evidence of acute intracranial hemorrhage, extra-axial collection, mass effect, midline shift, herniation or hydrocephalus. Increased prominence of the ventricles, sulci and cisterns is consistent with the sequelae of atrophic cortical volume loss. The booth-white differentiation is intact. Moderate diffuse confluent periventricular and subcortical white matter hypoattenuation is nonspecific but may be related to small vessel ischemic disease. The visualized paranasal sinuses and mastoid air cells are clear. The surrounding soft tissues and osseous structures are unremarkable. IMPRESSION: 1. No acute intracranial abnormality. 2. Chronic sequelae of microvascular disease and atrophic cortical volume loss. Radiation optimization: All CT scans at this facility use at least one of these dose optimization techniques: automated exposure control mA and/or kV adjustment per patient size (includes targeted exams where dose is matched to clinical indication) or iterative reconstruction. Time of 1ST Reevaluation: 02:20 Reevaluation 1ST: Unchanged Patient Education/Counseling: Need For Follow Up Family Education/Counseling: No Family Present SEPSIS Sepsis Screen Physician Orders Blood Alcohol (02/11/25 01:55) Drug Screen (02/11/25 01:55) Comprehensive Metabolic Panel (02/11/25 01:55) Lipase (02/11/25 01:55) Magnesium (02/11/25 01:55) Covid19 Antigen Veronica (02/11/25 ) Rapid Influenza A&B (02/11/25 01:55) Urinalysis (02/11/25 01:55) Chest Xray 1 View (02/11/25 01:55) Electrocardigram (02/11/25 01:55) Saline Lock (02/11/25 01:55) Straight Cath. (02/11/25 ) Head Without Contrast (02/11/25 01:55) Vital Signs Date Time Temp Pulse Resp B/P (MAP) Pulse Ox O2 Delivery O2 Flow Rate FiO2 02/11/25 02:10 67 02/11/25 01:59 97.9 86 16 143/79 (100) 100 97.9 Laboratory Tests Test 02/11/25 01:55 Lactic Acid Level 1.4 mmol/L (0.4-2.0) White Blood Count 6.5 10^3/uL (4.4-10.8) Departure 1 Departure Time of Disposition: 03:23 Impression: Primary Impression: Generalized weakness Disposition: ADMITTED INPATIENT Condition: Fair Comments MDM: Extensive evaluation was performed in attempt to identify or rule out: (See differential diagnosis section) The following tests were ordered, and results were reviewed by me and discussed with patient: (See diagnostic results section) The following test were independently interpreted by me: N/A I reviewed and agreed with the following test results read by other providers: N/A I reviewed the following notes from the pt's past medical encounters: N/A Additional information was gathered from interviewing the following independent historians: N/A Discussion of management or test interpretation with external physician/other qualified health pet caregiver: N/A Addressed [ ]one or more chronic illnesses with severe exacerbation, progression, or side effects of treatment: [ ]an acute or chronic illness that poses a threat to life or bodily function: [ ] Decision regarding hospitalization or escalation of hospital level of care: Risk and benefits of admission for further treatment of patient's condition was considered. Due to patient's current clinical condition, high risk of decline and poor outcome if discharged and need for further inpatient management and monitoring, patient will be admitted to the hospital. Drug therapy requiring intensive monitoring for toxicity: N/A Parenteral controlled substances: N/A Decision regarding elective major surgery with identified patient or procedure risk factors: N/A Decision regarding emergency major surgery: N/A Decision not to resuscitate or to de-escalate care because of poor prognosis: N/A Diagnosis or treatment significantly limited by social determinants of health: N/A Decision regarding hospitalization or escalation of hospital level of care: Risks and benefits of admission for further treatment of patient's condition was considered however due to patient's stable condition patient will be discharged to follow up closely or return to care for worsening of condition or inability to follow up. Critical Care Note Critical Care Time?: No Stability Stability form required: No I personally scribed for KIERSTEN HICKEY MD ([email or web address]) on 02/11/25 at 02:10. Electronically submitted by Roxana Brunson ([email or web address]). I personally scribed for KIERSTEN HICKEY MD ([email or web address]) on 02/11/25 at 02:23. Electronically submitted by Roxana Brunson ([email or web address]). KIERSTEN HICKEY MD Feb 11, 2025 02:10
[2025-02-11 02:20] LABS: Hematocrit 40.3 % (41.0-53.0); Hemoglobin 13.9 g/dL (13.5-17.5); Mean Corpuscular Hemoglobin 33.7 pg (28.0-32.0); Mean Corpuscular Volume 97.6 fL (80.0-100.0); Nucleated Red Blood Cells % 0.1 %
[2025-02-11 02:43] LABS: Alanine Aminotransferase 21 U/L (7-40); Albumin 4.8 g/dL (3.2-4.8); Alkaline Phosphatase 105 U/L (46-116); Anion Gap 12 (5-15); BUN/Creatinine Ratio 13.2 (10.0-20.0); Bilirubin, Total 0.5 mg/dL (0.2-1.0); Blood Urea Nitrogen 15 mg/dL (9-23); Calcium 9.7 mg/dL (8.7-10.4); Carbon Dioxide 22 mmol/L (20-31); Chloride 107 mmol/L (98-107); Magnesium 2.0 mg/dL (1.6-2.6); Sodium 141 mmol/L (136-145); Total Protein 7.3 g/dL (5.7-8.2)
--- NOTE | 2025-02-11 02:48 | DVH ---
CHEST RADIOGRAPH Indication: AMS Technique: Single frontal view of the chest was obtained COMPARISON: XY CHEST XRAY 1 VIEW on DOS: 01/26/25, XY CHEST PORTABLE on DOS: 01/23/25 FINDINGS: Lines and Tubes: None Lungs: Clear Pleura: No effusion. No pneumothorax. Cardiomediastinal contours: Unremarkable Bones: Unremarkable IMPRESSION: 1. No acute disease.
--- NOTE | 2025-02-11 02:49 | DVH ---
EXAM: CT HEAD WITHOUT CONTRAST INDICATION: Headache, left upper extremity weakness x1 day TECHNIQUE: CT of the head without intravenous contrast. Radiation Dose : 1. Head: CT Dose: CTDI volume is 57.79 mGy. Dose-length product is 1138.76 mGy*cm The dose indicators for CT are the volume Computed Tomography (CT) Dose Index (CTDIvol) and the Dose Length Product (DLP), and are measured in units of mGy and mGy-cm, respectively. These indicators are not patient dose, but values generated from the CT scanner acquisition factors. The report includes radiation exposure data for exposures received during this examination. COMPARISON: None FINDINGS: There is no evidence of acute intracranial hemorrhage, extra-axial collection, mass effect, midline s hift, herniation or hydrocephalus. Increased prominence of the ventricles, sulci and cisterns is consistent with the sequelae of atrophi c cortical volume loss. The booth-white differentiation is intact. Moderate diffuse confluent periventricular and subcortical white matter hypoattenuation is nonspecifi c but may be related to small vessel ischemic disease. The visualized paranasal sinuses and mastoid air cells are clear. The surrounding soft tissues and osseous structures are unremarkable. IMPRESSION: 1. No acute intracranial abnormality. 2. Chronic sequelae of microvascular disease and atrophic cortical volume loss. Radiation optimization: All CT scans at this facility use at least one of these dose optimization virgie hniques: automated exposure control mA and/or kV adjustment per patient size (includes targeted exam s where dose is matched to clinical indication) or iterative reconstruction.
[2025-02-11 03:23] LABS: Glucose 111 mg/dL (74-106); Potassium 3.4 mmol/L (3.5-5.1)
[2025-02-11 03:49] LABS: Lipase 44 U/L (12-53)
[2025-02-11 03:53] LABS: Urine Protein, UAD Negative (Negative)
[2025-02-11 04:08] LABS: Benzodiazephine Screen, Urine Neg (NEGATIVE); Opiate Scree,Urine Neg (NEGATIVE)
[2025-02-11 04:23] LABS: Amphetamine Screen, Urine Neg (NEGATIVE); Barbiturate Scree,Urine Neg (NEGATIVE); Cannabinoid Screen, Urine Neg (NEGATIVE); Cocaine Screen, Urine Neg (NEGATIVE); Phencyclidine Screen, Urine Neg (NEGATIVE)
--- NOTE | 2025-02-11 06:37 | ECG ---
[facility] Test Date: 2025-02-11 Test Time: 02:04:28 Pat Name: CAMILA LAL Department: ER Room: 0292T Gender: M General Operator: JOSE : 1955 Requested By: KIERSTEN HICKEY Order Number: [id number] Reading MD: Jorge aMyorga Measurements Intervals [place] Rate: 67 P: 49 OR: 144 QRS: -2 QRSD: 109 T: 58 QT: 479 QTc: 506 Interpretive Statements Sinus rhythm Abnormal R-wave progression, early transition Prolonged QT interval Electronically Signed On 02-17-2025 15:36:05 PDT by Jorge Mayorga Please click the below link to view image of tracing.
[2025-02-11] MEDS ORDERED: ONDANSETRON HCL 4 MG/2 ML VIAL IV PRN (08:15)
[2025-02-11] MEDS ORDERED: NITROGLYCERIN 0.4 MG SL TAB SL PRN ×2 (08:15)
[2025-02-11] MEDS ORDERED: ACETAMINOPHEN 325 MG TAB PO PRN (08:15)
[2025-02-11] MEDS ORDERED: MORPHINE SULFATE 4 MG/ML SYR/VIAL IV PRN (08:15)
[2025-02-11] MEDS ORDERED: MORPHINE SULFATE INJ 2 MG/ml SYRG IV PRN (08:15)
--- NOTE | 2025-02-11 08:15 | DVHHP2 ---
History of Present Illness Reason for Visit: Chest pain History of Present Illness Boaz Holder is a 69-year-old male with past medical history of asthma, COPD, depression, diabetes, GERD, hypertension, cholecystectomy, right knee replacement, blood transfusions, hyperlipidemia, and bipolar disorder who presents to the ED with chest pain that started 3 days ago. Patient reports that his pain is 10/10 pressure-like and constant. He states there are no triggering or alleviating factors. Patient denies any fever, chills, lightheadedness, dizziness, urinary symptoms, abdominal pain, nausea, vomiting, diarrhea, recent sick contacts, recent travels, recent ingestion of spoiled food, recent trauma or injury. Cardiovascular: HTN, hyperipidemia Pulmonary: Asthma, COPD GI: GERD Psych: Bipolar, Depression Endocrine: Diabetes Past Medical History Blood transfusions Past Surgical History: Cholecystectomy, Other (Right knee replacement ) Family History: Other Family History Mom and dad with heart disease. Brother had an OR. and sister of cancer patient does not know what kind. Smoke: No ALCOHOL: none Drugs: None Lives: Homeless Domestic Violence: Neg Review of Systems Constitutional: Yes: Weakness Eyes: Vision change Respiratory: Shortness of breath Cardiovascular: Chest Pain Musculoskeletal: other Allergies: Coded Allergies: Ketorolac (Verified Allergy, Mild, 10/24/10) Tromethamine (Verified Allergy, Mild, 10/24/10) Exam Vital Signs Vital Signs Date Time Temp Pulse Resp B/P (MAP) Pulse Ox O2 Delivery O2 Flow Rate FiO2 02/11/25 08:03 97.4 62 16 175/87 (116) 97 97.4 02/11/25 08:01 Room Air* 0 21 General Appearance: Alert, Oriented X3, Cooperative, No acute distress HEENT: Atraumatic, PERRLA, EOMI, Mucous membr. moist/pink Respiratory: Clear to auscultation, Normal air movement Cardiovascular: Normal S1, Normal S2 Abdominal: Normal bowel sounds, Soft Extremities: No clubbing, No cyanosis, Normal pulses Skin: No significant lesion Neuro: Normal gait, Normal speech, Strength at 5/5 X4 ext, Normal tone, Sensation intact Psych/Mental Status: Mental status NL, Mood NL Labs/Xrays Labs Test 02/11/25 06:13 02/11/25 03:31 02/11/25 01:56 02/11/25 01:55 Range/Units Urine Color Light-yellow Yellow Urine Clarity Clear Clear Urine pH 6.0 5.0-9.0 Urine Specific [place] 1.009 1.001-1.035 Urine Protein Negative Negative Urine Ketones Negative Negative Urine Blood Negative Negative /uL Urine Nitrite Negative Negative Urine Bilirubin Negative Negative Urine Urobilinogen 2 H Negative mg/dL Urine Leukocyte Esterase Negative Negative /uL Urine RBC None seen 0 - 3 /hpf Urine Microscopic WBC < 1 0-3 /HPF Urine Squamous Epithelial Cells Few <5 /hpf Urine Bacteria None seen None Seen /hpf Urine Glucose Normal Normal mg/dL Urine Opiates Screen Neg NEGATIVE Urine Fentanyl Screen Neg NEGATIVE Urine Barbiturates Screen Neg NEGATIVE Urine Phencyclidine Screen Neg NEGATIVE Urine Amphetamines Screen Neg NEGATIVE Urine Benzodiazepines Screen Neg NEGATIVE Urine Cocaine Screen Neg NEGATIVE Urine Cannabinoids Screen Neg NEGATIVE POC Glucose 114 H 70-106 mg/dl White Blood Count 6.5 4.4-10.8 10^3/uL Red Blood Count 4.13 L 4.5-5.90 10^6/uL Hemoglobin 13.9 13.5-17.5 g/dL Hematocrit 40.3 L 41.0-53.0 % Mean Corpuscular Volume 97.6 80.0-100.0 fL Mean Corpuscular Hemoglobin 33.7 H 28.0-32.0 pg Mean Corpuscular Hemoglobin Concent 34.5 32.0-36.0 g/dL Red Cell Distribution Width 13.4 11.8-14.3 % Platelet Count 265 140-450 10^3/uL Mean Platelet Volume 6.7 L 6.9-10.8 fL Neutrophils (%) (Auto) 66.3 37.0-80.0 % Lymphocytes (%) (Auto) 23.5 10.0-50.0 % Monocytes (%) (Auto) 8.7 0.0-12.0 % Eosinophils (%) (Auto) 0.6 0.0-7.0 % Basophils (%) (Auto) 0.9 0.0-2.0 % Neutrophils # (Auto) 4.3 1.6-8.6 10 ^3/uL Lymphocytes # (Auto) 1.5 0.4-5.4 10 ^3/uL Monocytes # (Auto) 0.6 0-1.3 10 ^3/uL Eosinophils # (Auto) 0 0-0.8 10 ^3/uL Basophils # (Auto) 0.1 0-0.2 10 ^3/uL Nucleated Red Blood Cells 0.1 % Sodium Level 141 136-145 mmol/L Potassium Level 3.4 L 3.5-5.1 mmol/L Chloride Level 107 98-107 mmol/L Carbon Dioxide Level 22 20-31 mmol/L Anion Gap 12 5-15 Blood Urea Nitrogen 15 9-23 mg/dL Creatinine 1.14 0.700-1.30 mg/dL Glomerular Filtration Rate Calc 69 >90 mL/min BUN/Creatinine Ratio 13.2 10.0-20.0 Serum Glucose 111 H 74-106 mg/dL Lactic Acid Level 1.4 0.4-2.0 mmol/L Calcium Level 9.7 8.7-10.4 mg/dL Magnesium Level 2.0 1.6-2.6 mg/dL Total Bilirubin 0.5 0.2-1.0 mg/dL Aspartate Amino Transferase (AST) 33 13-40 U/L Alanine Aminotransferase (ALT) 21 7-40 U/L Alkaline Phosphatase 105 46-116 U/L Troponin I High Sensitivity 8 </=54 ng/L B-Type Natriuretic Peptide 70.00 0-100 pg/mL Total Protein 7.3 5.7-8.2 g/dL Albumin 4.8 3.2-4.8 g/dL Lipase 44 12-53 U/L Thyroid Stimulating Hormone (TSH) 4.43 0.55-4.78 uIU/mL Plasma/Serum Blood Alcohol < 3.0 <10 mg/dL Exam: US LEFT LOWER EXTREMITY ULTRASOUN Clinical History: Left inguinal/upper thigh pulsating mass. Thank You! Comparison: None Technique: Targeted sonographic evaluation of the soft tissues of the left groin was obtained utilizing [place] and color Doppler imaging. Findings/Impression: Morphologically benign-appearing lymph node is present in the left groin measuring 0.7 cm which appears to correspond to area of patient's pain. Common femoral artery, greater saphenous vein and common femoral vein are visualized and appear grossly within normal limits. EXAM: CT HEAD WITHOUT CONTRAST INDICATION: Headache, left upper extremity weakness x1 day TECHNIQUE: CT of the head without intravenous contrast. Radiation Dose : 1. Head: CT Dose: CTDI volume is 57.79 mGy. Dose-length product is 1138.76 mGy*cm The dose indicators for CT are the volume Computed Tomography (CT) Dose Index (CTDIvol) and the Dose Length Product (DLP), and are measured in units of mGy and mGy-cm, respectively. These indicators are not patient dose, but values generated from the CT scanner acquisition factors. The report includes radiation exposure data for exposures received during this examination. COMPARISON: None FINDINGS: There is no evidence of acute intracranial hemorrhage, extra-axial collection, mass effect, midline shift, herniation or hydrocephalus. Increased prominence of the ventricles, sulci and cisterns is consistent with the sequelae of atrophic cortical volume loss. The booth-white differentiation is intact. Moderate diffuse confluent periventricular and subcortical white matter hypoattenuation is nonspecific but may be related to small vessel ischemic disease. The visualized paranasal sinuses and mastoid air cells are clear. The surrounding soft tissues and osseous structures are unremarkable. IMPRESSION: 1. No acute intracranial abnormality. 2. Chronic sequelae of microvascular disease and atrophic cortical volume loss. CHEST RADIOGRAPH Indication: AMS Technique: Single frontal view of the chest was obtained COMPARISON: XY CHEST XRAY 1 VIEW on DOS: 01/26/25, XY CHEST PORTABLE on DOS: 01/23/25 FINDINGS: Lines and Tubes: None Lungs: Clear Pleura: No effusion. No pneumothorax. Cardiomediastinal contours: Unremarkable Bones: Unremarkable IMPRESSION: 1. No acute disease. SEPSIS Sepsis Screen Date sepsis recognized/suspect: Feb 11, 2025 Time Sepsis recognized/suspect: 800 Recent Procedure: No On Antibiotic Therapy: No Respiratory Rate >20: No Heart Rate >90: No Temp<36 C (96.8 F) or >38.3 C: No SBP <90 or MAP <65 mmHG: No New Acute Mental Status Change: No Is the patient on CPAP, BIPAP,: No Physician Orders Covid19 Antigen Veronica (02/11/25 ) Rapid Influenza A&B (02/11/25 01:55) Chest Xray 1 View (02/11/25 01:55) Saline Lock (02/11/25 01:55) Straight Cath. (02/11/25 ) Head Without Contrast (02/11/25 01:55) Admit (02/11/25 08:08) Code Status (02/11/25 08:08) Vital Signs .PER UNIT PROTOCOL (02/11/25 08:08) In Classroom Tutor (02/11/25 08:08) Cardiac Diet-2gna,Lofat,Lochol (02/11/25 Breakfast) Aspirin Tablet (02/11/25 10:00) Lipitor 40mg Hs Hi-Intensity (02/11/25 22:00) Morphine Sulfate Injection (02/11/25 08:15) Acetaminophen Tablet (Tylenol Tablet) (02/11/25 08:15) Complete Blood Count (02/12/25 04:00) Basic Metabolic Panel (02/12/25 04:00) Magnesium (02/12/25 04:00) Lipid Panel (02/12/25 04:00) Echo 2d Mode Cardiac Dop (02/11/25 08:08) Nitroglycerin Sublingual (Ntrostat Subli (02/11/25 08:15) Ondansetron Hcl (Zofran) (02/11/25 08:15) Electrocardigram (02/12/25 04:00) Troponin-I Hs (02/11/25 08:08) Cardiac Rehabilitation - Outpa (02/11/25 ) Nitroglycerin Sublingual (Ntrostat Subli (02/11/25 08:15) Morphine Sulfate Injection (02/11/25 08:15) Stat Ekg For Chest Pain (02/11/25 08:08) Notify Of Changes From Base (02/11/25 08:08) Poultry Sexer For 24 Hours (02/11/25 08:08) Emergency Dysrhythmia Protocol (02/11/25 08:08) Rhythm Strips Once Every Shift (02/11/25 08:08) Oxygen By Nasal Cannula (02/11/25 08:08) Free T4 (Free Thyroxine) (02/11/25 08:08) Magnesium (02/11/25 08:08) Magnesium [place] (02/11/25 08:15) Thyroid Stimulating Hormone (02/11/25 08:08) Vital Signs Date Time Temp Pulse Resp B/P (MAP) Pulse Ox O2 Delivery O2 Flow Rate FiO2 02/11/25 08:03 97.4 62 16 175/87 (116) 97 97.4 02/11/25 08:01 62 20 97 Room Air* 0 21 02/11/25 06:17 56 12 134/86 (102) 02/11/25 05:57 97.3 52 16 145/77 (99) 100 97.3 02/11/25 02:10 67 02/11/25 02:04 67 02/11/25 01:59 97.9 86 16 143/79 (100) 100 97.9 Laboratory Tests Test 02/11/25 01:55 Lactic Acid Level 1.4 mmol/L (0.4-2.0) White Blood Count 6.5 10^3/uL (4.4-10.8) Assessment/Plan Assessment/Plan Assessment Chest pain rule out ACS Sinus bradycardia Hypokalemia History of asthma History of COPD History of depression History of diabetes History of GERD History of hypertension History of cholecystectomy History of right knee replacement History of blood transfusions History of hyperlipidemia History of bipolar disorder Plan [facility] Antiemetics Pain management COVID negative Flu negative UA noted CT head noted Chest x-ray noted TSH Troponin Mag level UDS Lactic level Alcohol level BNP Echo ordered Free T4 Lipid panel Hemoglobin A1c ISS and Accu-Cheks Diet Home medications reconciled DVT prophylaxis-not indicated patient ambulating PUD prophylaxis-not indicated no history of GERD or GI bleed Discussed plan of care with patient and nurse [id number] Preventive counseling healthy eating habits, physical activity, and re gular checkups Plan discussed with: Patient My Orders Orders - JOSETTE BOLAND PROPELLER MECHANIC Procedure Category Date Status Time Admit ADMIT 02/11/25 Verified 08:08 Code Status CODE 02/11/25 Verified 08:08 Vital Signs DEE DEE 02/11/25 Verified 08:08 In Classroom Tutor DEE DEE 02/11/25 Verified 08:08 Cardiac DIET 02/11/25 Verified Diet-2gna,Lofat,Lochol Breakfast Aspirin Tablet PHA 02/11/25 Verified 10:00 Lipitor 40mg Hs PHA 02/11/25 Verified Hi-Intensity 22:00 Morphine Sulfate PHA 02/11/25 Verified Injection 08:15 Acetaminophen Tablet PHA 02/11/25 Verified (Tylenol Tablet) 08:15 Complete Blood Count LAB 02/12/25 Verified 04:00 Basic Metabolic Panel LAB 02/12/25 Verified 04:00 Magnesium LAB 02/12/25 Verified 04:00 Lipid Panel LAB 02/12/25 Verified 04:00 Echo 2d Mode Cardiac US 02/11/25 Verified DOP 08:08 Nitroglycerin PHA 02/11/25 Verified Sublingual (Ntrostat 08:15 Ondansetron Hcl PHA 02/11/25 Verified (Zofran) 08:15 Electrocardigram EKG 02/12/25 Verified 04:00 Troponin-I Hs LAB 02/11/25 Verified 08:08 Cardiac DEE DEE 02/11/25 Verified Rehabilitation - Outpa Nitroglycerin PHA 02/11/25 Verified Sublingual (Ntrostat 08:15 Morphine Sulfate PHA 02/11/25 Verified Injection 08:15 Stat Ekg For Chest [facility] 02/11/25 Verified Pain 08:08 Notify Md Of Changes [facility] 02/11/25 Verified From Base 08:08 Poultry Sexer For [facility] 02/11/25 Verified 24 Hours 08:08 Emergency Dysrhythmia [facility] 02/11/25 Verified Protocol 08:08 Rhythm Strips Once [facility] 02/11/25 Verified Every Shift 08:08 Oxygen By Nasal RT 02/11/25 Verified Cannula 08:08 Free T4 (Free LAB 02/11/25 Verified Thyroxine) 08:08 Magnesium LAB 02/11/25 Verified 08:08 Magnesium [place] PHA 02/11/25 Verified 08:15 Thyroid Stimulating LAB 02/11/25 Verified Hormone 08:08 Date of Service: Feb 11, 2025 Billing Provider: JOSETTE BOLAND Common Visit Codes: [id number] INP/OBS CARE (HIGH) Secondary Visit Codes: [id number] COUNSELING IND JOSETTE BOLAND Feb 11, 2025 08:15
[2025-02-11 08:36] LABS: COVID19 ANTIGEN SOFIA FIA NEGATIVE (NEGATIVE)
--- NOTE | 2025-02-11 11:27 | DVHPN2 ---
Subjective Decreasing chest pain/discomfort; complaining of left inguinal/upper thigh bulge/pain Reviewed: Care Plan, H&P, Labs, Medications, Previous Orders, Radiology, Other (Consultation) Changes from previous H/P or p: Changes Objective Vitals Vital Signs Date Time Temp Pulse Resp B/P (MAP) Pulse Ox O2 Delivery O2 Flow Rate FiO2 02/11/25 10:47 97.7 60 20 148/78 (101) 99 97.7 02/11/25 08:01 Room Air* 0 21 Exam Nurse was a hardwood floor layer General Appearance: Alert, Oriented X3, Cooperative, No acute distress HEENT: Atraumatic Lungs: Other (Decreased air entry bilateral with no wheezing) Cardiovascular: Regular rate, Normal S1, Normal S2 Abdomen: Normal bowel sounds, Soft, No tenderness, Other (Mobile subcutaneous mass in the left inguinal area) Extremities: No edema Neuro: Normal speech, Strength at 5/5 X4 ext, Normal tone, Sensation intact, C ranial nerves 3-12 NL Skin: Other (Scar of right total knee replacement) Psych/Mental Status: Mental status NL, Mood NL Medications Current Medications Medications Dose Ordered Sig/Anam Route Start Time Stop Time Status Last Admin Dose Admin Aspirin 81 mg DAILY PO 02/11/25 10:00 Atorvastatin Calcium 40 mg HS PO 02/11/25 22:00 Morphine Sulfate 2 mg Q30MP PRN IV 02/11/25 08:15 UNV Acetaminophen 650 mg Q6HP PRN PO 02/11/25 08:15 Nitroglycerin 0.4 mg Q5MINP PRN SL 02/11/25 08:15 UNV Ondansetron HCl 4 mg Q4HP PRN IV 02/11/25 08:15 Nitroglycerin 0.4 mg Q5MINP PRN SL 02/11/25 08:15 Morphine Sulfate 2 mg Q30M PRN IV 02/11/25 08:15 Laboratory Results Laboratory Tests 02/11/25 01:55 Chemistry Test 02/11/25 01:55 02/11/25 08:37 Albumin 4.8 g/dL (3.2-4.8) Calcium Level 9.7 mg/dL (8.7-10.4) Magnesium Level 2.0 mg/dL (1.6-2.6) 2.2 mg/dL (1.6-2.6) Total Protein 7.3 g/dL (5.7-8.2) Lipid panel Test 02/11/25 01:55 Lipase 44 U/L (12-53) Cardiac Markers Test 02/11/25 01:55 B-Type Natriuretic Peptide 70.00 pg/mL (0-100) LFT Test 02/11/25 01:55 Alanine Aminotransferase (ALT) 21 U/L (7-40) Alkaline Phosphatase 105 U/L (46-116) Aspartate Amino Transferase (AST) 33 U/L (13-40) Total Bilirubin 0.5 mg/dL (0.2-1.0) HgA1c, TSH Test 02/11/25 01:55 02/11/25 08:37 Thyroid Stimulating Hormone (TSH) 4.43 uIU/mL (0.55-4.78) 2.78 uIU/mL (0.55-4.78) Urinalysis Test 02/11/25 03:31 Urine Color Light-yellow (Yellow) Urine Clarity Clear (Clear) Urine pH 6.0 (5.0-9.0) Urine Specific [place] 1.009 (1.001-1.035) Urine Protein Negative (Negative) Urine Ketones Negative (Negative) Urine Blood Negative /uL (Negative) Urine Nitrite Negative (Negative) Urine Bilirubin Negative (Negative) Urine Urobilinogen 2 mg/dL (Negative) H Urine Leukocyte Esterase Negative /uL (Negative) Urine RBC None seen /hpf (0 - 3) Urine Microscopic WBC < 1 /HPF (0-3) Urine Squamous Epithelial Cells Few /hpf (<5) Urine Bacteria None seen /hpf (None Seen) Urine Glucose Normal mg/dL (Normal) Labs and/or images reviewed: Labs reviewed by me, Image(s) reviewed by me Assessment/Plan Assessment/Plan A 69-year-old male patient; with multiple comorbidities; who presented to the emergency department with headache and chest pain. #Chest pain; noncardiac as per cardiology #Headache with reported left-sided weakness; but no weakness on exam #Chronic low back pain and knees pain; status post right total knee replacement #Essential hypertension with hypertensive urgency #Prolonged QTc #COPD/asthma; not in exacerbation #Bipolar disease; no suicide ideation/plan #Left inguinal/upper thigh benign lymph node #Controlled diabetes mellitus type 2 with recent hemoglobin A1c of 5.9% Cardiology consulted; noncardiac cause for chest pain as recent echo done late last month showed no abnormality with normal troponin levels; EKG with no ischemic changes Reviewed head CT that showed no acute abnormalities Ordered and reviewed ultrasound of left inguinal area that showed benign lymph node with no signs of infection/inflammation; no hernia; no hematoma/pseudoaneurysm/aneurysm Reviewed lab work and imaging studies including negative drug screen and chest x-ray without acute abnormalities Ordered physical therapy Restarted home antihypertensive medication and to adjust according to blood pressure readings Continue insulin therapy with hypoglycemia protocol and adjust according to blood glucose reading Restarted home psychiatric medications except quetiapine as explained below No neurological focal deficits during examination Continue pain management as indicated Avoid QTc prolonging agents Holding quetiapine due to prolongation of QTc Continue aspirin and statin Continue nebulizers Continue monitoring Goals of care discussed with the patient for 20 minutes; full code Late Entry. This medical document was created using an electronic medical record system with computerized dictation system. Although this document has been carefully reviewed, there might still be some phonetic and typographical errors. These areas are purely typographical due to imperfections of the software programs, and do not reflect any compromise in the patient's medical care. Plan discussed with: Patient, Other (Nurse) My Orders Orders - ALPESH SANCHEZ MD Procedure Category Date Status Time * Cardiology Consult CONS 02/11/25 Verified 11:26 Date of Service: Feb 11, 2025 Billing Provider: ALPESH SANCHEZ MD Common Visit Codes: [id number] INP/OBS CARE(HIGH) Secondary Visit Codes: [id number] CARE PLAN 30 MINUTES (20 minute) ALPESH SANCHEZ MD Feb 11, 2025 11:27
[2025-02-11] MEDS: MAGNESIUM SULFATE 1GM/100ML 100 ML IV ONE (12:01)
[2025-02-11] MEDS: ALBUTEROL SULF 2.5 MG/0.5ML(0.5%) NEB SOLN NEB SCH (12:09)
[2025-02-11] MEDS: IPRATROPIUM BROM 0.5 MG/2.5ML INH SOL NEB SCH (12:09)
[2025-02-11] MEDS: IPRATROPIUM BROM 0.5 MG/2.5ML INH SOL ONE (13:00)
[2025-02-11] MEDS: ALBUTEROL SULF 2.5 MG/0.5ML(0.5%) NEB SOLN ONE (13:00)
--- NOTE | 2025-02-11 14:18 | DVH ---
Exam: US LEFT LOWER EXTREMITY ULTRASOUN Clinical History: Left inguinal/upper thigh pulsating mass. Thank You! Comparison: None Technique: Targeted sonographic evaluation of the soft tissues of the left groin was obtained utilizing [place] and color Doppler imaging. Findings/Impression: Morphologically benign-appearing lymph node is present in the left groin measuring 0.7 cm which appea rs to correspond to area of patient's pain. Common femoral artery, greater saphenous vein and common femoral vein are visualized and appear gross ly within normal limits.
--- NOTE | 2025-02-11 15:10 | DVHINCON2 ---
Date Seen: Feb 11, 2025 Referring Physician MD Matty Reason for Consultation Chest pain History of Present Illness This is a 69-year-old male patient who presents to emergency room with chief complaint of chest pain and headache. The patient reports that the chest pain has been going on for approximately two weeks. The patient was recently seen at this facility and discharged on 01/26/2025. The patient describes his chest pain as unprovoked, constant, pressure-like in nature, right-sided and nonradiating. Associated symptoms include shortness of breath and headache. Upon assessment, pain is reproducible upon palpation. The patient also states that the pain increases when he inhales. He denies any alleviating factors. Initial twelve lead electrocardiogram reveals normal sinus rhythm without any significant ST segment changes. Troponin levels have been negative thus far. Of note, the patient has had blood pressure readings reaching as high as 175/87 in the emergency room. Significant past medical history includes hypertension, dyslipidemia, type 2 diabetes mellitus, COPD, asthma, and bipolar disorder. Past Medical History Past medical history reviewed. No other significant than mentioned above. Past Surgical History Right knee replacement Cholecystectomy Family History: Diabetes mellitus G8 MOTHER G8 FATHER FH: heart disease G8 MOTHER G8 FATHER Family History Family history reviewed. Social History Denies the use of tobacco, alcohol or illicit drugs. Allergies: Coded Allergies: Ketorolac (Verified Allergy, Mild, 10/24/10) Tromethamine (Verified Allergy, Mild, 10/24/10) Home Meds Reported Medications Tiotropium [place]-Olodaterol (Stiolto Respimat 2.5-2.5 Mcg/Act) 1 Aer Aer, 1 AER IN DAILY, AER 01/25/25 Zpmmmtihdas-Ocieqkthmbim-Zqnwy (Trelegy Ellipta 200-62.5-25 Mcg/INH) 1 Aer Aer, 1 AER IN BID, AER 01/25/25 Losartan Potassium (Losartan Potassium) 25 Mg Tab, 1 TAB PO DAILY, #90 TAB 1 Refill 01/25/25 Quetiapine Fumerate (Seroquel) 50 Mg Tab, 400 MG PO DAILY for 30 Days, MG 01/25/25 Sertraline Hcl (Sertraline Hcl) 100 Mg Tab, 1 TAB PO DAILY, #90 TAB 1 Refill 01/25/25 Fluticasone Propionate (Fluticasone Propionate) 0.05 % Cre, 50 MCG JUANCHO BID for 30 Days, MCG 01/25/25 Beclomethasone Dipropionate (Qvar) 40 Mcg Aer, 40 MCG IN BID, AER 2 PUFFS BID 12/16/13 Baclofen (Baclofen) 10 Mg Tab, 10 MG PO BID PRN for FOR MUSCLE SPASM, MG 12/16/13 Divalproex Sodium (Divalproex Sodium) 500 Mg Tab, 500 MG PO BID, MG 12/16/13 Metformin Hydrochloride (Glucophage) 850 Mg Tab, 850 MG PO BID, TAB 12/16/13 Aspirin (Aspirin) 81 Mg Chw, 81 MG PO DAILY, CHW 12/16/13 Lansoprazole (Lansoprazole) 30 Mg Cap, 30 MG PO DAILY, CAP 12/16/13 Oxycodone Hcl (Roxicodone) 5 Mg Tab, 5 MG PO Q6HPRN PRN for MODERATE PAIN, TAB 12/16/13 Verapamil Hcl (Verapamil Hcl Er) 180 Mg Tab, 180 MG PO DAILY, TAB 12/16/13 Glipizide (Glipizide) 5 Mg Tab, 5 MG PO BID, MG 12/16/13 Home Meds Home medications reviewed. Current Medications Current Medications Medications (Trade) Dose Ordered Sig/Anam Route PRN Reason Start Time Stop Time Status Last Admin Aspirin 81 mg DAILY PO 02/11/25 10:00 Atorvastatin Calcium (Lipitor) 40 mg HS PO 02/11/25 22:00 Morphine Sulfate 2 mg Q30MP PRN IV FOR CHEST PAIN 02/11/25 08:15 UNV Acetaminophen (Tylenol Tablet) 650 mg Q6HP PRN PO MILD PAIN (1-3 PAIN SCALE) 02/11/25 08:15 Nitroglycerin (Ntrostat Sublingual) 0.4 mg Q5MINP PRN SL FOR CHEST PAIN 02/11/25 08:15 UNV Ondansetron HCl (Zofran) 4 mg Q4HP PRN IV NAUSEA / VOMITING 02/11/25 08:15 Nitroglycerin (Ntrostat Sublingual) 0.4 mg Q5MINP PRN SL FOR CHEST PAIN 02/11/25 08:15 Morphine Sulfate 2 mg Q30M PRN IV FOR CHEST PAIN 02/11/25 08:15 Ipratropium [place] (Atrovent Medneb) 0.5 mg Q6HWA NEB 02/11/25 12:00 02/11/25 12:09 Albuterol (Ventolin Medneb) 2.5 mg Q6HWA [facility] 02/11/25 12:00 02/11/25 12:09 Baclofen (Liorisal Tablet) 10 mg Q8HR PO 02/11/25 14:00 Acetaminophen/ Hydrocodone Bitart ([place] 10/325MG Tab) 1 tab Q8HP PRN PO SEVERE PAIN (7-10 PAIN SCALE) 02/11/25 11:45 Review of Systems Constitutional: No symptom reported Ears, Nose, & Throat: No symptom reported Eyes: No symptom reported Neurological: Headache Pulmonary/Respiratory: No symptoms reported Cardiovascular: Chest pain Gastrointestinal: No symptom reported Genitourinary: No symptom reported Musculoskeletal: No symptom reported Skin: No symptom reported Psychiatric: No symptom reported Endocrine: No symptom reported Hematologic/Lymphatic: No symptom reported Vital Signs Vital Signs Date Time Temp Pulse Resp B/P (MAP) Pulse Ox O2 Delivery O2 Flow Rate FiO2 02/11/25 14:20 98.3 62 16 144/77 (99) 98 98.3 02/11/25 12:03 Room Air* 0 21 Physical Exam General Appearance: Cooperative. Well-developed. Well-nourished. No acute distress. Pulmonary/Respiratory: Clear, bilateral breaths sounds. Cardiovascular/Chest: Regular rate and rhythm Peripheral Pulses: 2+ Radial (R). 2+ Radial (L). 2+ Pedal (R). 2+ Pedal (L) Abdominal Exam: Normal bowel sounds. Soft, non-tender. Ankle Exam: Negative ankle edema Lower extremities: Negative lower extremity edema Neuro/Mental Status: A/OX4, coherent. Thoughts/Psych: Normal thought pattern. Appropriate mood and affect. Good judgment and insight. Appearance: No acute distress. Skin Exam: Normal inspection. Normal color. Warm and dry. Labs/Diagnostic Data Labs Test 02/11/25 08:37 02/11/25 06:13 02/11/25 03:31 02/11/25 01:56 Range/Units Magnesium Level 2.2 1.6-2.6 mg/dL Troponin I High Sensitivity 8 </=54 ng/L Thyroid Stimulating Hormone (TSH) 2.78 0.55-4.78 uIU/mL Free Thyroxine (T4) Calculated 0.93 0.89-1.76 ng/dL Influenza Type A Antigen Negative Negative Influenza Type B Antigen Negative Negative SARS-CoV-2 Antigen (Rapid) Negative NEGATIVE Urine Color Light-yellow Yellow Urine Clarity Clear Clear Urine pH 6.0 5.0-9.0 Urine Specific [place] 1.009 1.001-1.035 Urine Protein Negative Negative Urine Ketones Negative Negative Urine Blood Negative Negative /uL Urine Nitrite Negative Negative Urine Bilirubin Negative Negative Urine Urobilinogen 2 H Negative mg/dL Urine Leukocyte Esterase Negative Negative /uL Urine RBC None seen 0 - 3 /hpf Urine Microscopic WBC < 1 0-3 /HPF Urine Squamous Epithelial Cells Few <5 /hpf Urine Bacteria None seen None Seen /hpf Urine Glucose Normal Normal mg/dL Urine Opiates Screen Neg NEGATIVE Urine Fentanyl Screen Neg NEGATIVE Urine Barbiturates Screen Neg NEGATIVE Urine Phencyclidine Screen Neg NEGATIVE Urine Amphetamines Screen Neg NEGATIVE Urine Benzodiazepines Screen Neg NEGATIVE Urine Cocaine Screen Neg NEGATIVE Urine Cannabinoids Screen Neg NEGATIVE POC Glucose 114 H 70-106 mg/dl Test 02/11/25 01:55 Range/Units White Blood Count 6.5 4.4-10.8 10^3/uL Red Blood Count 4.13 L 4.5-5.90 10^6/uL Hemoglobin 13.9 13.5-17.5 g/dL Hematocrit 40.3 L 41.0-53.0 % Mean Corpuscular Volume 97.6 80.0-100.0 fL Mean Corpuscular Hemoglobin 33.7 H 28.0-32.0 pg Mean Corpuscular Hemoglobin Concent 34.5 32.0-36.0 g/dL Red Cell Distribution Width 13.4 11.8-14.3 % Platelet Count 265 140-450 10^3/uL Mean Platelet Volume 6.7 L 6.9-10.8 fL Neutrophils (%) (Auto) 66.3 37.0-80.0 % Lymphocytes (%) (Auto) 23.5 10.0-50.0 % Monocytes (%) (Auto) 8.7 0.0-12.0 % Eosinophils (%) (Auto) 0.6 0.0-7.0 % Basophils (%) (Auto) 0.9 0.0-2.0 % Neutrophils # (Auto) 4.3 1.6-8.6 10 ^3/uL Lymphocytes # (Auto) 1.5 0.4-5.4 10 ^3/uL Monocytes # (Auto) 0.6 0-1.3 10 ^3/uL Eosinophils # (Auto) 0 0-0.8 10 ^3/uL Basophils # (Auto) 0.1 0-0.2 10 ^3/uL Nucleated Red Blood Cells 0.1 % Sodium Level 141 136-145 mmol/L Potassium Level 3.4 L 3.5-5.1 mmol/L Chloride Level 107 98-107 mmol/L Carbon Dioxide Level 22 20-31 mmol/L Anion Gap 12 5-15 Blood Urea Nitrogen 15 9-23 mg/dL Creatinine 1.14 0.700-1.30 mg/dL Glomerular Filtration Rate Calc 69 >90 mL/min BUN/Creatinine Ratio 13.2 10.0-20.0 Serum Glucose 111 H 74-106 mg/dL Lactic Acid Level 1.4 0.4-2.0 mmol/L Calcium Level 9.7 8.7-10.4 mg/dL Total Bilirubin 0.5 0.2-1.0 mg/dL Aspartate Amino Transferase (AST) 33 13-40 U/L Alanine Aminotransferase (ALT) 21 7-40 U/L Alkaline Phosphatase 105 46-116 U/L B-Type Natriuretic Peptide 70.00 0-100 pg/mL Total Protein 7.3 5.7-8.2 g/dL Albumin 4.8 3.2-4.8 g/dL Lipase 44 12-53 U/L Plasma/Serum Blood Alcohol < 3.0 <10 mg/dL Assessment Chest pain, noncardiac Hypertensive urgency Dyslipidemia Type 2 diabetes mellitus COPD Asthma Bipolar disorder Plan/Recommendation We will continue with the following plan/recommendations (Dr. Mayorga): A recent transthoracic echocardiogram on 01/23/2025 revealed an EF of 65% with no valvular or wall motion abnormalities. Given the patient's atypical clinical presentation, unremarkable troponin level, and unremarkable twelve lead electrocardiogram, doubt ACS. We will recommend for aggressive blood pressure control. Continue lipid-lowering agent. There is no further inpatient cardiac workup indicated at this time. The patient may follow up with Cardiology in the outpatient setting if deemed necessary. Thank you for allowing us to care for this patient. Please call with any questions or concerns. Critical care time spent: 44 minutes This medical document was created using an electronic medical record system with voice recognition software and computerized dictation system. Although this document has been carefully reviewed, there might still be some phonetic and typographical errors. Occasional wrong-word or ``sound-alike substitutions may have occurred due to the inherent limitations of voice recognition software. These areas are purely typographical due to imperfections of the software programs and do not reflect any compromise in the patient's medical care. Please read the chart carefully and recognize, using context, where these substitutions have occurred. Plan discussed with: Patient NYHA Physical activity limitations: NA Date of Service: Feb 11, 2025 Billing Provider: INDIGO AGUILA Cardiology Common Codes: [id number] INP/OBS CARE (High) Cardiology Consultation Codes: [id number] CONSULT <45MIN INDIGO AGUILA Feb 11, 2025 15:09
[2025-02-11] MEDS: SERTRALINE HCL 50 MG TAB PO ONE (16:15)
[2025-02-11] MEDS ORDERED: DEXTROSE (50%) 50ML SYRG IV PRN ×2 (16:15→17:00)
[2025-02-11] MEDS: BACLOFEN 10 MG TAB PO SCH (16:16)
[2025-02-11] MEDS ORDERED: CHOL50007 PO (16:43)
[2025-02-11] MEDS ORDERED: LOS25T PO (16:43)
[2025-02-11] MEDS ORDERED: hydrALAZINE HCL 20 MG/ML VL IV PRN (17:00)
[2025-02-11] MEDS ORDERED: ACCU-CHEK COMFORT CURVE STRIP VI SCH (17:00)
[2025-02-11] MEDS ORDERED: InsuLIN REG 1unit/0.01ml Soln (100units/ml) SC SCH (17:00)
[2025-02-11] MEDS: ACCU-CHEK COMFORT CURVE STRIP VI SCH (22:00)
[2025-02-11] MEDS ORDERED: PATIENTS OWN MEDICATION (Divalproex Sodium 500 MG) PO SCH (22:00)
[2025-02-11] MEDS: InsuLIN REG 1unit/0.01ml Soln (100units/ml) SC SCH (23:12)
[2025-02-11] MEDS: SERTRALINE HCL 50 MG TAB PO SCH (23:14)
[2025-02-11] MEDS: ATORVASTATIN 20 MG TAB PO SCH (23:14)
[2025-02-12] VITALS (14 sets, daily range): BP systolic 94–122; BP diastolic 54–79; PULSE 51–70; RESP 16–18; TEMP 97–98.4; O2SAT 95–100
[2025-02-12] MEDS: LOSARTAN POTASSIUM 25 MG TAB PO ONE (00:20)
[2025-02-12] MEDS: VERAPAMIL HCL 180mg SR tab PO ONE (00:21)
[2025-02-12 06:15] LABS: Hematocrit 38.2 % (41.0-53.0); Hemoglobin 13.1 g/dL (13.5-17.5); Mean Corpuscular Hemoglobin 33.3 pg (28.0-32.0); Mean Corpuscular Volume 96.9 fL (80.0-100.0); Nucleated Red Blood Cells % 0.0 %
[2025-02-12 06:24] LABS: Sodium 144 mmol/L (136-145)
[2025-02-12 06:25] LABS: Anion Gap 10 (5-15); Carbon Dioxide 22 mmol/L (20-31)
[2025-02-12 06:26] LABS: Calcium 9.8 mg/dL (8.7-10.4)
[2025-02-12 06:30] LABS: Glucose 104 mg/dL (74-106); Triglycerides 100 mg/dL (< 150)
[2025-02-12 06:31] LABS: BUN/Creatinine Ratio 17.4 (10.0-20.0); Blood Urea Nitrogen 15 mg/dL (9-23); Magnesium 1.9 mg/dL (1.6-2.6)
[2025-02-12 06:32] LABS: Cholesterol 112 mg/dL (< 200); HDL Cholesterol 55 mg/dL (40-59)
[2025-02-12 06:37] LABS: Chloride 112 mmol/L (98-107); Potassium 3.2 mmol/L (3.5-5.1)
[2025-02-12] MEDS: LOSARTAN POTASSIUM 25 MG TAB PO SCH (09:43)
[2025-02-12] MEDS: VERAPAMIL HCL 180mg SR tab PO SCH (09:44)
[2025-02-12] MEDS ORDERED: LANSOPRAZOLE 30 MG PO SCH (10:00)
[2025-02-12] MEDS ORDERED: VERAPAMIL HCL 180mg SR tab PO SCH (10:00)
[2025-02-12] MEDS ORDERED: PATIENTS OWN MEDICATION (Sertraline Hcl 1 TAB) PO SCH (10:00)
[2025-02-12] MEDS ORDERED: LOSARTAN POTASSIUM 25 MG TAB PO SCH (10:00)
--- NOTE | 2025-02-12 11:05 | DVHPN2 ---
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 scout General Appearance: Alert, Oriented X3, Cooperative, No acute distress HEENT: Atraumatic Lungs: Other (Decreased air entry bilateral with no wheezing) Cardiovascular: Regular rate, Normal S1, Normal S2 Abdomen: Normal bowel sounds, Soft, No tenderness, Other (Mobile subcutaneous mass in the left inguinal area) Extremities: No edema Neuro: Normal speech, Strength at 5/5 X4 ext, Normal tone, Sensation intact, C ranial nerves 3-12 NL Skin: Other (Scar of right total knee replacement) Psych/Mental Status: Mental status NL, Mood NL Medications Current Medications Medications Dose Ordered Sig/Anam Route Start Time Stop Time Status Last Admin Dose Admin Atorvastatin Calcium 40 mg HS PO 02/11/25 22:00 02/11/25 23:14 40 MG Morphine Sulfate 2 mg Q30MP PRN IV 02/11/25 08:15 UNV Acetaminophen 650 mg Q6HP PRN PO 02/11/25 08:15 Nitroglycerin 0.4 mg Q5MINP PRN SL 02/11/25 08:15 UNV Ondansetron HCl 4 mg Q4HP PRN IV 02/11/25 08:15 Nitroglycerin 0.4 mg Q5MINP PRN SL 02/11/25 08:15 Morphine Sulfate 2 mg Q30M PRN IV 02/11/25 08:15 Ipratropium [place] 0.5 mg Q6HWA NEB 02/11/25 12:00 02/12/25 06:19 0.5 MG Albuterol 2.5 mg Q6HWA NEB 02/11/25 12:00 02/12/25 06:19 2.5 MG Baclofen 10 mg Q8HR PO 02/11/25 14:00 02/12/25 06:19 10 MG Acetaminophen/ Hydrocodone Bitart 1 tab Q8HP PRN PO 02/11/25 11:45 Divalproex Sodium 500 mg BID PO 02/11/25 22:00 02/12/25 09:42 500 MG Sertraline HCl 100 mg BID PO 02/11/25 22:00 02/12/25 09:42 100 MG Losartan Potassium 25 mg DAILY PO 02/12/25 10:00 02/12/25 09:43 25 MG Verapamil HCl 180 mg DAILY PO 02/12/25 10:00 02/12/25 09:44 180 MG Aspirin 81 mg DAILY PO 02/12/25 10:00 02/12/25 09:42 81 MG Patient Own Medication 30 mg DAILY PO 02/12/25 10:00 Hold Quetiapine Fumarate 400 mg HS PO 02/11/25 22:00 02/11/25 23:14 400 MG Diagnostic Test (Pha) 1 strip ACHS 02/11/25 17:00 02/12/25 06:19 1 STRIP Insulin Human Regular ACHS SC 02/11/25 17:00 02/11/25 23:12 2 UNITS Dextrose 50 ml UD PRN IV 02/11/25 17:00 Hydralazine HCl 10 mg Q6HP PRN IV 02/11/25 17:00 Laboratory Results Laboratory Tests 02/12/25 05:46 Chemistry Test 02/12/25 05:46 Calcium Level 9.8 mg/dL (8.7-10.4) Magnesium Level 1.9 mg/dL (1.6-2.6) Lipid panel Test 02/12/25 05:46 Cholesterol Level 112 mg/dL (< 200) HDL Cholesterol 55 mg/dL (40-59) Triglycerides Level 100 mg/dL (< 150) Urinalysis Test 02/11/25 03:31 Urine Color Light-yellow (Yellow) Urine Clarity Clear (Clear) Urine pH 6.0 (5.0-9.0) Urine Specific [place] 1.009 (1.001-1.035) Urine Protein Negative (Negative) Urine Ketones Negative (Negative) Urine Blood Negative /uL (Negative) Urine Nitrite Negative (Negative) Urine Bilirubin Negative (Negative) Urine Urobilinogen 2 mg/dL (Negative) H Urine Leukocyte Esterase Negative /uL (Negative) Urine RBC None seen /hpf (0 - 3) Urine Microscopic WBC < 1 /HPF (0-3) Urine Squamous Epithelial Cells Few /hpf (<5) Urine Bacteria None seen /hpf (None Seen) Urine Glucose Normal mg/dL (Normal) Labs and/or images reviewed: Labs reviewed by me, Image(s) reviewed by me Assessment/Plan Assessment/Plan A 69-year-old male patient; with multiple comorbidities; who presented to the emergency department with headache and chest pain. #Chest pain; noncardiac as per cardiology #Headache with reported left-sided weakness; but no weakness on exam #Chronic low back pain and knees pain; status post right total knee replacement #Essential hypertension with hypertensive urgency #Prolonged QTc #Hypokalemia #COPD/asthma; not in exacerbation #Bipolar disease; no suicide ideation/plan #Left inguinal/upper thigh benign lymph node #Controlled diabetes mellitus type 2 with recent hemoglobin A1c of 5.1% Cardiology consulted; noncardiac cause for chest pain as recent echo done late last month showed no abnormality with normal troponin levels; EKG with no ischemic changes Reviewed head CT that showed no acute abnormalities Ordered and reviewed ultrasound of left inguinal area that showed benign lymph node with no signs of infection/inflammation; no hernia; no hematoma/pseudoaneurysm/aneurysm Reviewed lab work and imaging studies including negative drug screen and chest x-ray without acute abnormalities Physical therapy is following Continue antihypertensive medication/s and to adjust according to blood pressure readings Continue insulin therapy with hypoglycemia protocol and adjust according to blood glucose reading Continue home psychiatric medications except quetiapine as explained below No neurological focal deficits during examination Continue pain management as indicated Avoid QTc prolonging agents Holding quetiapine due to prolongation of QTc Replace electrolytes as indicated Continue aspirin and statin Continue nebulizers Continue monitoring Late Entry. This medical document was created using an electronic medical record system with computerized dictation system. Although this document has been carefully reviewed, there might still be some phonetic and typographical errors. These areas are purely typographical due to imperfections of the software programs, and do not reflect any compromise in the patient's medical care. Plan discussed with: Patient, Other (Nurse) My Orders Orders - ALPESH SANCHEZ MD Procedure Category Date Status Time * Cardiology Consult CONS 02/11/25 Transmitted 11:28 Ipratropium Medneb PHA 02/11/25 In Process (Atrovent Medneb) 12:00 Albuterol Medneb PHA 02/11/25 In Process (Ventolin Medneb) 12:00 Baclofen Tablet PHA 02/11/25 In Process (Liorisal Tablet) 14:00 Hydrocodone-Acet PHA 02/11/25 In Process 10/325mg Tab ([place] 11:45 Left Lower Extremity US 02/11/25 Resulted Ultrasoun 12:27 Pt Request For Service PT 02/11/25 Logged 15:49 * Inspector Firearms CONS 02/11/[address] Tablet PHA 02/11/25 In Process (Depakote "Dr" Tabl 22:00 Sertraline Hcl PHA 02/11/25 In Process (Zoloft) 22:00 [place]sa Screen IAM 02/12/25 Uncollected 06:00 * Inspector Firearms CONS 02/12/25 Transmitted Consult * Dietary Consult CONS 02/12/25 Transmitted 06:00 Date of Service: Feb 12, 2025 Billing Provider: ALPESH SANCHEZ MD Common Visit Codes: [id number] INP/OBS CARE(HIGH) ALPESH SANCHEZ MD Feb 12, 2025 11:04
[2025-02-12] MEDS: MAGNESIUM SULFATE 1GM/100ML 100 ML IV ONE (11:15)
[2025-02-12] MEDS: POTASSIUM CHLORIDE 40 MEQ, LIDOCAINE 1% (LOCAL ANESTH.) 4 ML in SODIUM CHL 0.9% 250 ML IV ONE (11:15)
[2025-02-12] MEDS: HYDROcodone-ACET 10/325MG TAB PO PRN (20:33)
[2025-02-13] VITALS (14 sets, daily range): BP systolic 100–130; BP diastolic 58–90; PULSE 52–77; RESP 16–20; TEMP 97.4–97.9; O2SAT 94–100
[2025-02-13 07:55] LABS: Hematocrit 35.6 % (41.0-53.0); Hemoglobin 12.3 g/dL (13.5-17.5); Mean Corpuscular Hemoglobin 33.5 pg (28.0-32.0); Mean Corpuscular Volume 97.1 fL (80.0-100.0); Nucleated Red Blood Cells % 0.1 %
[2025-02-13 08:08] LABS: Anion Gap 9 (5-15); Carbon Dioxide 23 mmol/L (20-31); Potassium 3.6 mmol/L (3.5-5.1); Sodium 143 mmol/L (136-145)
[2025-02-13 08:09] LABS: Calcium 9.5 mg/dL (8.7-10.4); Chloride 111 mmol/L (98-107)
[2025-02-13 08:13] LABS: Glucose 75 mg/dL (74-106)
[2025-02-13 08:14] LABS: BUN/Creatinine Ratio 23.1 (10.0-20.0); Blood Urea Nitrogen 18 mg/dL (9-23)
[2025-02-13 08:45] LABS: Magnesium 1.9 mg/dL (1.6-2.6)
--- NOTE | 2025-02-13 11:17 | DVHPN2 ---
Subjective No chest pain/discomfort; feeling better this morning with no complaints Reviewed: Care Plan, H&P, Labs, Medications, Previous Orders, Radiology, Other (Consultation) Changes from previous H/P or p: Changes Musculoskeletal: other Objective Vitals Vital Signs Date Time Temp Pulse Resp B/P (MAP) Pulse Ox O2 Delivery O2 Flow Rate FiO2 02/13/25 09:53 117/67 02/13/25 09:00 97.4 77 17 100 97.4 02/13/25 06:46 Room Air* 0 21 Intake/Output Intake and Output 02/13/25 07:00 Intake Total 1600 ml Output Total 1600 ml Balance 0 ml Intake Oral 1600 ml Output Urine Total 1600 ml Exam Nurse was a rail 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 General Appearance: Alert, Oriented X3, Cooperative, No acute distress HEENT: Atraumatic Lungs: Other (Decreased air entry bilateral with no wheezing) Cardiovascular: Regular rate, Normal S1, Normal S2 Abdomen: Normal bowel sounds, Soft, No tenderness, Other (Mobile subcutaneous mass in the left inguinal area) Extremities: No edema Neuro: Normal speech, Strength at 5/5 X4 ext, Normal tone, Sensation intact, C ranial nerves 3-12 NL Skin: Other (Scar of right total knee replacement) Psych/Mental Status: Mental status NL, Mood NL Medications Current Medications Medications Dose Ordered Sig/Anam Route Start Time Stop Time Status Last Admin Dose Admin Atorvastatin Calcium 40 mg HS PO 02/11/25 22:00 02/12/25 21:26 40 MG Morphine Sulfate 2 mg Q30MP PRN IV 02/11/25 08:15 UNV Acetaminophen 650 mg Q6HP PRN PO 02/11/25 08:15 Nitroglycerin 0.4 mg Q5MINP PRN SL 02/11/25 08:15 UNV Ondansetron HCl 4 mg Q4HP PRN IV 02/11/25 08:15 Nitroglycerin 0.4 mg Q5MINP PRN SL 02/11/25 08:15 Morphine Sulfate 2 mg Q30M PRN IV 02/11/25 08:15 Ipratropium [place] 0.5 mg Q6HWA NEB 02/11/25 12:00 02/13/25 06:45 0.5 MG Albuterol 2.5 mg Q6HWA NEB 02/11/25 12:00 02/13/25 06:46 2.5 MG Baclofen 10 mg Q8HR PO 02/11/25 14:00 02/13/25 06:08 10 MG Acetaminophen/ Hydrocodone Bitart 1 tab Q8HP PRN PO 02/11/25 11:45 02/12/25 20:33 1 TAB Divalproex Sodium 500 mg BID PO 02/11/25 22:00 02/13/25 09:53 500 MG Sertraline HCl 100 mg BID PO 02/11/25 22:00 02/13/25 09:53 100 MG Losartan Potassium 25 mg DAILY PO 02/12/25 10:00 02/13/25 09:53 25 MG Verapamil HCl 180 mg DAILY PO 02/12/25 10:00 02/12/25 09:44 180 MG Aspirin 81 mg DAILY PO 02/12/25 10:00 02/13/25 09:54 81 MG Patient Own Medication 30 mg DAILY PO 02/12/25 10:00 Hold Quetiapine Fumarate 400 mg HS PO 02/11/25 22:00 02/12/25 21:26 400 MG Diagnostic Test (Pha) 1 strip ACHS 02/11/25 17:00 02/13/25 06:09 1 STRIP Insulin Human Regular ACHS SC 02/11/25 17:00 02/11/25 23:12 2 UNITS Dextrose 50 ml UD PRN IV 02/11/25 17:00 Hydralazine HCl 10 mg Q6HP PRN IV 02/11/25 17:00 Laboratory Results Laboratory Tests 02/13/25 05:39 Chemistry Test 02/13/25 05:39 Calcium Level 9.5 mg/dL (8.7-10.4) Magnesium Level 1.9 mg/dL (1.6-2.6) Urinalysis Test 02/11/25 03:31 Urine Color Light-yellow (Yellow) Urine Clarity Clear (Clear) Urine pH 6.0 (5.0-9.0) Urine Specific [place] 1.009 (1.001-1.035) Urine Protein Negative (Negative) Urine Ketones Negative (Negative) Urine Blood Negative /uL (Negative) Urine Nitrite Negative (Negative) Urine Bilirubin Negative (Negative) Urine Urobilinogen 2 mg/dL (Negative) H Urine Leukocyte Esterase Negative /uL (Negative) Urine RBC None seen /hpf (0 - 3) Urine Microscopic WBC < 1 /HPF (0-3) Urine Squamous Epithelial Cells Few /hpf (<5) Urine Bacteria None seen /hpf (None Seen) Urine Glucose Normal mg/dL (Normal) Labs and/or images reviewed: Labs reviewed by me, Image(s) reviewed by me Assessment/Plan Assessment/Plan A 69-year-old male patient; with multiple comorbidities; who presented to the emergency department with headache and chest pain. #Chest pain; noncardiac as per cardiology; likely musculoskeletal #Headache with reported left-sided weakness; but no weakness on exam; no acute abnormality on head CT #Chronic low back pain and knees pain; status post right total knee replacement #Essential hypertension with hypertensive urgency #Prolonged QTc #Hypokalemia; corrected with replacement #COPD/asthma; not in exacerbation #Bipolar disease; no suicide ideation/plan; stopped home quetiapine due to prolonged QTc #Left inguinal/upper thigh benign lymph node #Controlled diabetes mellitus type 2 with recent hemoglobin A1c of 5.1% Cardiology consulted; noncardiac cause for chest pain as recent echo done late last month showed no abnormality with normal troponin levels; EKG with no ischemic changes Reviewed head CT that showed no acute abnormalities Ordered and reviewed ultrasound of left inguinal area that showed benign lymph node with no signs of infection/inflammation; no hernia; no hematoma/pseudoaneurysm/aneurysm Reviewed lab work and imaging studies including negative drug screen and chest x-ray without acute abnormalities Physical therapy cleared the patient for discharge Continue home antihypertensive medication Continue home antidiabetic medications Continue home psychiatric medications except quetiapine as explained below No neurological focal deficits during examination To follow up with his pain management team upon discharge Avoid QTc prolonging agents Holding quetiapine due to prolongation of QTc Replace electrolytes as indicated Continue home aspirin and statin Continue inhalers To follow up with discharge clinic within one week and to follow up with primary care provider within two weeks Late Entry. This medical document was created using an electronic medical record system with computerized dictation system. Although this document has been carefully reviewed, there might still be some phonetic and typographical errors. These areas are purely typographical due to imperfections of the software programs, and do not reflect any compromise in the patient's medical care. Plan discussed with: Patient, Other (Nurse) My Orders Orders - ALPESH SANCHEZ MD Procedure Category Date Status Time [place] Screen IAM 02/12/25 In Process UNK Date of Service: Feb 13, 2025 Billing Provider: ALPESH SANCHEZ MD Common Visit Codes: [id number] INP/OBS CARE(MOD) ALPESH SANCHEZ MD Feb 13, 2025 11:17
[2025-02-13] MEDS ORDERED: ATOR20TA50 PO (11:24)
--- NOTE | 2025-02-13 11:29 | DVHDS2 ---
Discharge Summary Date of Admission Feb 11, 2025 at 08:08 Date of Discharge: Feb 13, 2025 Admitting Diagnosis Chest pain Labs/Diagnostic Data: Laboratory Results Test 02/13/25 10:52 02/13/25 05:39 02/12/25 05:46 02/11/25 08:37 POC Glucose 152 mg/dl (70-106) White Blood Count 4.4 10^3/uL (4.4-10.8) Red Blood Count 3.67 10^6/uL (4.5-5.90) Hemoglobin 12.3 g/dL (13.5-17.5) Hematocrit 35.6 % (41.0-53.0) Mean Corpuscular Volume 97.1 fL (80.0-100.0) Mean Corpuscular Hemoglobin 33.5 pg (28.0-32.0) Mean Corpuscular Hemoglobin Concent 34.5 g/dL (32.0-36.0) Red Cell Distribution Width 13.3 % (11.8-14.3) Platelet Count 208 10^3/uL (140-450) Mean Platelet Volume 7.1 fL (6.9-10.8) Neutrophils (%) (Auto) 55.7 % (37.0-80.0) Lymphocytes (%) (Auto) 35.9 % (10.0-50.0) Monocytes (%) (Auto) 6.0 % (0.0-12.0) Eosinophils (%) (Auto) 2.3 % (0.0-7.0) Basophils (%) (Auto) 0.1 % (0.0-2.0) Neutrophils # (Auto) 2.4 10 ^3/uL (1.6-8.6) Lymphocytes # (Auto) 1.6 10 ^3/uL (0.4-5.4) Monocytes # (Auto) 0.3 10 ^3/uL (0-1.3) Eosinophils # (Auto) 0.1 10 ^3/uL (0-0.8) Basophils # (Auto) 0 10 ^3/uL (0-0.2) Nucleated Red Blood Cells 0.1 % Sodium Level 143 mmol/L (136-145) Potassium Level 3.6 mmol/L (3.5-5.1) Chloride Level 111 mmol/L (98-107) Carbon Dioxide Level 23 mmol/L (20-31) Anion Gap 9 (5-15) Blood Urea Nitrogen 18 mg/dL (9-23) Creatinine 0.78 mg/dL (0.700-1.30) Glomerular Filtration Rate Calc 95 mL/min (>90) BUN/Creatinine Ratio 23.1 (10.0-20.0) Serum Glucose 75 mg/dL (74-106) Calcium Level 9.5 mg/dL (8.7-10.4) Magnesium Level 1.9 mg/dL (1.6-2.6) Triglycerides Level 100 mg/dL (< 150) Cholesterol Level 112 mg/dL (< 200) LDL Cholesterol 38 mg/dL (< 100) HDL Cholesterol 55 mg/dL (40-59) Troponin I High Sensitivity 8 ng/L (</=54) Thyroid Stimulating Hormone (TSH) 2.78 uIU/mL (0.55-4.78) Free Thyroxine (T4) Calculated 0.93 ng/dL (0.89-1.76) Test 02/11/25 06:13 02/11/25 03:31 02/11/25 01:55 Influenza Type A Antigen Negative (Negative) Influenza Type B Antigen Negative (Negative) SARS-CoV-2 Antigen (Rapid) Negative (NEGATIVE) Urine Color Light-yellow (Yellow) Urine Clarity Clear (Clear) Urine pH 6.0 (5.0-9.0) Urine Specific [place] 1.009 (1.001-1.035) Urine Protein Negative (Negative) Urine Ketones Negative (Negative) Urine Blood Negative /uL (Negative) Urine Nitrite Negative (Negative) Urine Bilirubin Negative (Negative) Urine Urobilinogen 2 mg/dL (Negative) Urine Leukocyte Esterase Negative /uL (Negative) Urine RBC None seen /hpf (0 - 3) Urine Microscopic WBC < 1 /HPF (0-3) Urine Squamous Epithelial Cells Few /hpf (<5) Urine Bacteria None seen /hpf (None Seen) Urine Glucose Normal mg/dL (Normal) Urine Opiates Screen Neg (NEGATIVE) Urine Fentanyl Screen Neg (NEGATIVE) Urine Barbiturates Screen Neg (NEGATIVE) Urine Phencyclidine Screen Neg (NEGATIVE) Urine Amphetamines Screen Neg (NEGATIVE) Urine Benzodiazepines Screen Neg (NEGATIVE) Urine Cocaine Screen Neg (NEGATIVE) Urine Cannabinoids Screen Neg (NEGATIVE) Lactic Acid Level 1.4 mmol/L (0.4-2.0) Total Bilirubin 0.5 mg/dL (0.2-1.0) Aspartate Amino Transferase (AST) 33 U/L (13-40) Alanine Aminotransferase (ALT) 21 U/L (7-40) Alkaline Phosphatase 105 U/L (46-116) B-Type Natriuretic Peptide 70.00 pg/mL (0-100) Total Protein 7.3 g/dL (5.7-8.2) Albumin 4.8 g/dL (3.2-4.8) Lipase 44 U/L (12-53) Plasma/Serum Blood Alcohol < 3.0 mg/dL (<10) Other Laboratory Tests 02/13/25 05:39 Brief Hx & Hospital Course: A 69-year-old male patient; with multiple comorbidities; who presented to the emergency department with headache and chest pain. #Chest pain; noncardiac as per cardiology; likely musculoskeletal #Headache with reported left-sided weakness; but no weakness on exam; no acute abnormality on head CT #Chronic low back pain and knees pain; status post right total knee replacement #Essential hypertension with hypertensive urgency #Prolonged QTc #Hypokalemia; corrected with replacement #COPD/asthma; not in exacerbation #Bipolar disease; no suicide ideation/plan; stopped home quetiapine due to prolonged QTc #Left inguinal/upper thigh benign lymph node #Controlled diabetes mellitus type 2 with recent hemoglobin A1c of 5.1% Cardiology consulted; noncardiac cause for chest pain as recent echo done late last month showed no abnormality with normal troponin levels; EKG with no ischemic changes Reviewed head CT that showed no acute abnormalities Ordered and reviewed ultrasound of left inguinal area that showed benign lymph node with no signs of infection/inflammation; no hernia; no hematoma/pseudoaneurysm/aneurysm Reviewed lab work and imaging studies including negative drug screen and chest x-ray without acute abnormalities Physical therapy cleared the patient for discharge Continue home antihypertensive medication Continue home antidiabetic medications Continue home psychiatric medications except quetiapine as explained below No neurological focal deficits during examination To follow up with his pain management team upon discharge Avoid QTc prolonging agents To stop home quetiapine due to prolongation of QTc; no quetiapine was given during hospitalization Replace electrolytes as indicated Continue home aspirin and statin Continue inhalers To follow up with discharge clinic within one week and to follow up with primary care provider within two weeks Late Entry. This medical document was created using an electronic medical record system with computerized dictation system. Although this document has been carefully reviewed, there might still be some phonetic and typographical errors. These areas are purely typographical due to imperfections of the software programs, and do not reflect any compromise in the patient's medical care. Consults/Reason for consult Cardiology for chest pain Condition at Discharge: Stable Final Diagnosis/Problems List Non-Cardiac Chest Pain; most likely musculoskeletal in origin Discharge Disposition: Home Discharge Instruct/Medications Diet: Consistent carbohydrate, Cardiac 2g Na,low cholest Activity: No Restrictions, As Tolerated Follow Up/Referral: Discharge Clinic within 1 wee; PCP within 2 weeks Medications: As EMR Scheduled Aspirin (Aspirin), 81 MG PO DAILY, (Reported) Atorvastatin Calcium (Atorvastatin Calcium), 20 MG PO HS Beclomethasone Dipropionate (Qvar), 40 MCG IN BID, (Reported) Cholecalciferol (Vitamin D3), 1 CAP PO DAILY, (Reported) Divalproex Sodium (Divalproex Sodium), 500 MG PO BID, (Reported) Fluticasone Propionate (Fluticasone Propionate), 50 MCG JUANCHO BID, (Reported) Epebsubduax-Latlwgpjiafh-Ykgyv (Trelegy Ellipta 200-62.5-25 Mcg/INH), 1 AER IN BID, (Reported) Glipizide (Glipizide), 5 MG PO BID, (Reported) Lansoprazole (Lansoprazole), 30 MG PO DAILY, (Reported) Losartan Potassium (Losartan Potassium), 1 TAB PO DAILY, (Reported) Losartan Potassium (Losartan Potassium), 1 TAB PO DAILY, (Reported) Metformin Hydrochloride (Glucophage), 850 MG PO BID, (Reported) Quetiapine Fumerate (Seroquel), 400 MG PO DAILY, (Reported) Sertraline Hcl (Sertraline Hcl), 1 TAB PO DAILY, (Reported) Tiotropium [place]-Olodaterol (Stiolto Respimat 2.5-2.5 Mcg/Act), 1 AER IN DAILY, (Reported) Verapamil Hcl (Verapamil Hcl Er), 180 MG PO DAILY, (Reported) Scheduled PRN Baclofen (Baclofen), 10 MG PO BID PRN for FOR MUSCLE SPASM, (Reported) Oxycodone Hcl (Roxicodone), 5 MG PO Q6HPRN PRN for MODERATE PAIN, (Reported) Discharge Statement: "Patient was advised to return to the ER or call 911 if any headaches, dizziness, shortness of breath, chest pain, abdominal pain, bleeding, fevers, or worsening of medical condition. Patient was counseled about treatment plan, medications, possible side effects, patientverbalized understanding. All questions were answered to the best of my ability. This discharge took greater then 30 minutes in planning, reviewing documentation, counseling the patient, and discussing with other team members." ASSESSMENT ASSESSMENT Assessment Non-Cardiac Chest Pain; most likely musculoskeletal in origin Date of Service: Feb 13, 2025 Billing Provider: ALPESH SANCHEZ MD Common Visit Codes: 71085-SIC/OBS DISCH DAY >30min ALPESH SANCHEZ MD Feb 13, 2025 11:29
== END 2025-02-13 19:00 | disposition home or self-care (01) | DRG 313 ==
LOC: ER 01:39 → OVERFLOW 08:08 → TELE-WESTW 15:45
PROVIDERS: ADMIT Internal Medicine; ATTEND Internal Medicine
DX: R07.89 Other chest pain (principal); E87.6 Hypokalemia; I16.0 Hypertensive urgency; J44.89 Other specified chronic obstructive pulmonary disease; F31.9 Bipolar disorder, unspecified; Z20.822 Contact with and (suspected) exposure to COVID-19; E11.9 Type 2 diabetes mellitus without complications; G89.29 Other chronic pain; K21.9 Gastro-esophageal reflux disease without esophagitis; I10 Essential (primary) hypertension; E78.5 Hyperlipidemia, unspecified; Z96.651 Presence of right artificial knee joint; Z88.8 Allergy status to other drugs, medicaments and biological substances; Z79.82 Long term (current) use of aspirin; Z90.49 Acquired absence of other specified parts of digestive tract; Z83.3 Family history of diabetes mellitus; Z82.49 Family history of ischemic heart disease and other diseases of the circulatory system; Z80.9 Family history of malignant neoplasm, unspecified; Z79.84 Long term (current) use of oral hypoglycemic drugs; Z79.899 Other long term (current) drug therapy
CPT/HCPCS: 36415; 70450; 71045; 80048; 80053; 80061; 80307; 80320; 81001; 82962; 83605; 83690; 83735; 83880; 84439; 84443; 84484; 85025; 87081; 87426; 87804; 93005; 93926; 94640; 96372; 97163; G0378; J1815; J2003

== ENCOUNTER 2025-06-07 17:42 | Emergency (ER) | payer MEDICARE, MEDICAID ==
[~2025-06-07] VITALS: Ht 170.2 cm; Wt 72.2 kg
[~2025-06-07 17:42] MED LIST changes: +ATOR20TA50 PO; +CHOL50007 PO; -QUET50TA PO
[2025-06-07 17:47] VITALS: TEMP 98.3
[2025-06-07 18:58] VITALS: BP 145/98
[2025-06-07 18:59] VITALS: PULSE 74; RESP 18; O2SAT 100
--- NOTE | 2025-06-07 19:01 | ED.PDOC ---
Back pain HPI HPI Comments 69-year-old male presents to ER for pain management of chronic pain. Patient with past medical history significant for chronic lumbar back pain and chronic right knee pain reports that he had "issues" picking up his Fidelity 10/325 mg from his pharmacy today and is requesting a Fidelity tablet in ER today until he can call his pain management office tomorrow to have the pharmacy issue resolved. He rates his current pain a 10/10 and presents to ER ambulatory on arrival, with steady gait, in no distress. Denies numbness/tingling and endorses no further symptoms/complaints Chief Complaint: Back Pain Time Seen by MD: 18:09 Primary Care Provider: THOMAS Reviewed Notes: Nurses Notes, Medications, Allergies Allergies: Coded Allergies: Ketorolac (Verified Allergy, Mild, 10/24/10) Tromethamine (Verified Allergy, Mild, 10/24/10) Home Meds Active Scripts Atorvastatin Calcium (ATORVASTATIN CALCIUM) 20 Mg Tab, 20 MG PO HS for 90 Days, #90 TAB Prov:ALPESH SANCHEZ MD 02/13/25 Reported Medications Cholecalciferol (VITAMIN D3) 5,000 Unit Cap, 1 CAP PO DAILY 02/11/25 Tiotropium [place]-Olodaterol (Stiolto Respimat 2.5-2.5 Mcg/Act) 1 Aer Aer, 1 AER IN DAILY, AER 01/25/25 Njjsivxxbti-Xlkwkntmcihd-Eoiob (Trelegy Ellipta 200-62.5-25 Mcg/INH) 1 Aer Aer, 1 AER IN BID, AER 01/25/25 Losartan Potassium (Losartan Potassium) 25 Mg Tab, 1 TAB PO DAILY, #90 TAB 1 Refill 01/25/25 Sertraline Hcl (Sertraline Hcl) 100 Mg Tab, 1 TAB PO DAILY, #90 TAB 1 Refill 01/25/25 Fluticasone Propionate (Fluticasone Propionate) 0.05 % Cre, 50 MCG JUANCHO BID for 30 Days, MCG 01/25/25 Beclomethasone Dipropionate (Qvar) 40 Mcg Aer, 40 MCG IN BID, AER 2 PUFFS BID 12/16/13 Baclofen (Baclofen) 10 Mg Tab, 10 MG PO BID PRN for FOR MUSCLE SPASM, MG 12/16/13 Divalproex Sodium (Divalproex Sodium) 500 Mg Tab, 500 MG PO BID, MG 12/16/13 Metformin Hydrochloride (Glucophage) 850 Mg Tab, 850 MG PO BID, TAB 12/16/13 Aspirin (Aspirin) 81 Mg Chw, 81 MG PO DAILY, CHW 12/16/13 Lansoprazole (Lansoprazole) 30 Mg Cap, 30 MG PO DAILY, CAP 12/16/13 Oxycodone Hcl (Roxicodone) 5 Mg Tab, 5 MG PO Q6HPRN PRN for MODERATE PAIN, TAB 12/16/13 Verapamil Hcl (Verapamil Hcl Er) 180 Mg Tab, 180 MG PO DAILY, TAB 12/16/13 Glipizide (Glipizide) 5 Mg Tab, 5 MG PO BID, MG 12/16/13 Information Source: Patient Mode of Arrival: Ambulatory Past Medical History PAST MEDICAL HISTORY: Asthma, COPD, Depression, DM, GERD, HTN Past Medical History (Other): Chronic lumbar back pain Chronic right knee pain Surgical History: Cholecystectomy Surgical History (Other): Right knee placement Family History Family History: Unknown Social History Smoker: Non-Smoker Alcohol: Denies ETOH Use Drugs: Denies Drug Use Lives In: Home Constitutional: denies: chills, diaphoresis, fatigue, fever, malaise, sweats, weakness, others EENTM: denies: blurred vision, double vision, ear bleeding, ear discharge, ear drainage, ear pain, ear ringing, eye pain, eye redness, hearing loss, mouth pain, mouth swelling, nasal discharge, nose bleeding, nose congestion, nose pain, photophobia, tearing, throat pain, throat swelling, voice changes, others Respiratory: denies: cough, hemoptysis, orthopnea, SOB at rest, shortness of breath, SOB with excertion, stridor, wheezing, others Cardiovascular: denies: chest pain, dizzy spells, diaphoresis, Dyspnea on exertion, edema, irregular heart beat, left arm pain, lightheadedness, palpitations, PND, syncope, others Gastrointestinal: denies: abdomen distended, abdominal pain, blood streaked bowels, constipated, diarrhea, dysphagia, difficulty swallowing, hematemesis, melena, nausea, poor appetite, poor fluid intake, rectal bleeding, rectal pain, vomiting, others Genitourinary: denies: burning, dysuria, flank pain, frequency, hematuria, incontinence, penile discharge, penile sore, pain, testicle pain, testicle swelling, urgency, others Neurological: denies: dizziness, fainting, headache, left sided numbness, left sided weakness, numbness, paresthesia, pre-existing deficit, right sided numbness, right sided weakness, seizure, speech problems, tingling, tremors, w eakness, others Musculoskeletal: reports: others (As stated in HPI) Integumetry: denies: bruises, change in color, change in hair/nails, dryness, laceration, lesions, lumps, rash, wounds, others Allergic/Immunocompromised: denies: Difficulty Healing, Frequent Infections, Hives, Itching, others Hematologic/Lymphatic: denies: anemia, blood clots, easy bleeding, easy bruising, swollen glands, others Endocrine: denies: excessive hunger, excessive sweating, excessive thirst, excessive urination, flushing, intolerance to cold, intolerance to heat, unexplained weight gain, unexplained weight loss, others Psychiatric: denies: anxiety, bipolar disorder, depression, hopeless, panic disorder, schizophrenia, sleepless, suicidal, others Physical Exam General Appearance: No Apparent Distress HEENT: PERRL/EOMI Neck: Full Range of Motion, Non-Tender, Normal Respiratory: Chest Non-Tender, Lungs Clear, No Accessory Muscle Use, No Respiratory Distress, Normal Breath Sounds Cardiovascular: No Murmur, No Gallop, Regular Rate/Rhythm Breast Exam: Deferred Gastrointestinal: Non Tender, No Pulsatile Mass, Soft Genitalia: Deferred Pelvic: Deferred Rectal: Deferred Extremities: Normal capillary refill, Normal range of motion Musculoskeletal : Extremity Location: Back (TTP to bilateral lower lumbar paraspinals noted. No skin changes noted. Steady gait appreciated) Neurologic: Alert, No Motor Deficits, Normal Affect, Normal Mood, No Sensory Deficits Cerebellar Function: Normal Reflexes: Normal Skin: Dry, Normal Color, Warm Peripheral Pulses: 2+ dorsalis pedis (R), 2+ dorsalis pedis (L), 2+ Radial (R), 2+ Radial (L), 2+ Brachial (R), 2+ Brachial (L) Lymphatic: No Adenopathy Was a procedure done? Was a procedure done?: No Sedation Sedation?: No Back Pain Differential Dx Differential Diagnosis: AAA, Fracture, Other (Neurovascular injury) X-Ray, Labs, Meds, VS Vital Signs Date Time Temp Pulse Resp B/P (MAP) Pulse Ox O2 Delivery O2 Flow Rate FiO2 06/07/25 18:59 74 18 100 Room Air 06/07/25 18:58 74 18 145/98 (114) 100 06/07/25 17:47 98.3 77 18 187/113 97 98.3 Fidelity 10/325 mg p.o. ordered Advised to follow up with PCP and pain management in 1-2 days Patient verbalized understanding and agreeable with current plan of care Advised to return to ER immediately if symptoms worse Time of 1ST Reevaluation: 18:44 Reevaluation 1ST: N/A Patient Education/Counseling: Diagnosis, Treatment, Prognosis, Need For Follow Up Family Education/Counseling: No Family Present SEPSIS Sepsis Screen Date sepsis recognized/suspect: Jun 07, 2025 Time Sepsis recognized/suspect: 1746 Recent Procedure: No On Antibiotic Therapy: No Respiratory Rate >20: No Heart Rate >90: No Temp<36 C (96.8 F) or >38.3 C: No SBP <90 or MAP <65 mmHG: No New Acute Mental Status Change: No Is the patient on CPAP, BIPAP,: No Vital Signs Date Time Temp Pulse Resp B/P (MAP) Pulse Ox O2 Delivery O2 Flow Rate FiO2 06/07/25 18:59 74 18 100 Room Air 06/07/25 18:58 74 18 145/98 (114) 100 06/07/25 17:47 98.3 77 18 187/113 97 98.3 Departure 1 Departure Time of Disposition: 19:00 Impression: Primary Impression: Chronic lumbar pain Qualified Codes: M54.50 - Low back pain, unspecified; G89.29 - Other chronic pain Additional Impression: Chronic pain of right knee Disposition: 01 HOME / SELF CARE / HOMELESS Condition: Stable Discharged With: Significant Other Critical Care Note Critical Care Time?: No Stability Stability form required: No Heart Score Heart Score: Heart Score Response (Comments) Value History N/A 0 EKG N/A 0 Age N/A 0 Risk Factors N/A 0 Troponin N/A 0 Total 0 EMERALD ADAMS Jun 07, 2025 19:01
[2025-06-07] MEDS: HYDROcodone-ACET 10/325MG TAB PO ONE (19:07)
== END 2025-06-07 19:17 | disposition home or self-care (01) ==
LOC: ER 17:42
DX: G89.29 Other chronic pain (principal); M54.50 Low back pain, unspecified; M25.561 Pain in right knee; I10 Essential (primary) hypertension; E11.9 Type 2 diabetes mellitus without complications; F32.A Depression, unspecified; J44.89 Other specified chronic obstructive pulmonary disease; K21.9 Gastro-esophageal reflux disease without esophagitis; Z79.82 Long term (current) use of aspirin; Z79.84 Long term (current) use of oral hypoglycemic drugs; Z79.899 Other long term (current) drug therapy; Z90.49 Acquired absence of other specified parts of digestive tract

== ENCOUNTER 2025-06-10 16:55 | Inpatient (IN) | payer MEDICARE, MEDICAID ==
[~2025-06-10] VITALS: Ht 170.2 cm; Wt 73.9 kg
[2025-06-10 17:31] VITALS: PULSE 91; RESP 18; O2SAT 97
--- NOTE | 2025-06-10 17:32 | ED.PDOC ---
HPI Comments HPI: This is a 69 year old male [place] presenting to the ED with chief complaint of chest pain. Patient reports that he started to experiencing left sided chest pain with associated left arm numbness and elevated BP at 187 systolic around 3 hours ago. 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 Patient denies any numbness, weakness, SOB, headache, dizziness, N/V, or syncope. Past Medical history: HTN, DM, COPD, GERD, Asthma, Chronic back pain, Depression Past Surgical history: Cholecystectomy Medications: Reviewed Social History: Denies smoking, ETOH, and drug use. Allergies: Toradol, Tromethamine HPI: Poor Historian. REVIEW OF SYSTEMS: CONSTITUTIONAL: Denies acute: fever, diaphoresis, chills, generalized weakness. HEAD: Denies acute: headache, photophobia Eyes: Denies acute: Double vision, vision loss, eye pain, eye discharge. EARS: Denies acute: tinnitus, hearing loss, ear discharge, ear pain, THROAT: Denies acute: sore throat, swelling, difficulty swallowing , pain with swallowi ng, change in voice. NECK: Denies acute: neck pain, neck swelling, stiff neck. HEART: Denies acute : palpitations, LUNGS: Denies acute: SOB, wheezing, cough, hemoptysis ABDOMEN: Denies acute: abdominal pain, Nausea, Vomiting, diarrhea, melena , hematemesis, hematochezia SKIN: Denies acute: rash, redness, lesions, itchiness. EXTREMITIES: Denies acute: calf pain, numbness, tingling, weakness, denies pain in extremity. Denies acute: Low back pain. Neuro: Denies acute: focal neurological deficit, motor or sensory focal neurological deficit, tremors, seizure like activity, confusion, dizziness, change in mental status, loss of bowel or bladder function, cauda equina like symptoms. : Denies acute: dysuria, hematuria, flank pain, increase in urinary frequency. PSYCH: Denies acute: hallucination, suicidal ideation, homicidal ideation. PHYSICAL EXAM: General: ----no----acute distress, awake and alert. Head: normocephalic, atraumatic. No raccoon's eyes, no sellers sign. Neck: supple, trachea is midline, no swelling. Throat: Normal phonation. Eyes:, no erythema, no purulent discharge, no proptosis, no icterus. Heart: regular rate, regular rhythm, no significant murmur appreciated. Lungs: no apparent respiratory distress, Able to speak in full sentences. No wheezing, no rhonchi, no crackles. No stridors Clear to auscultation bilaterally. Abdomen: non tender to palpation, non distended, soft, no guarding, no rebound, + bowel sounds. Neuro: Awake, Alert, oriented to name, self, situation, follows commands GCS=15. Speech is normal. Skin: no petechia, no purpura, no cyanosis, non-pale, not jaundice. Lower extremities: --1/4 b/l - Pitting edema no deformity, no focal swelling, no calf TTP. Makes eye contact. moves all four extremities. Face: no apparent facial droop. ED COURSE: DISCLAIMER: This medical document was created using an electronic medical record system with voice recognition software and computerized dictation system. Although this document has been carefully reviewed, there might still be some phonetic and typographical errors. Occasional wrong-word or "sound-alike" substitutions may have occurred due to the inherent limitations of voice recognition software. These areas are purely typographical due to imperfections of the software programs and do not reflect any compromise in the patient's medical care. Please read the chart carefully and recognize, using context, where these substitutions have occurred. Chief Complaint: Chest Pain Time Seen by MD: 17:29 Primary Care Provider: THOMAS Reviewed Notes: Medications, Allergies Allergies: Coded Allergies: Haloperidol (Verified Allergy, Severe, 06/10/25) Ketorolac (Verified Allergy, Mild, 10/24/10) Tromethamine (Verified Allergy, Mild, 10/24/10) Home Meds Active Scripts Atorvastatin Calcium (ATORVASTATIN CALCIUM) 20 Mg Tab, 20 MG PO HS for 90 Days, #90 TAB Prov:ALPESH SANCHEZ MD 02/13/25 Reported Medications Cholecalciferol (VITAMIN D3) 5,000 Unit Cap, 1 CAP PO DAILY 02/11/25 Tiotropium [place]-Olodaterol (Stiolto Respimat 2.5-2.5 Mcg/Act) 1 Aer Aer, 1 AER IN DAILY, AER 01/25/25 Rjruwisdcop-Xnnuxwfqxjsf-Qpatl (Trelegy Ellipta 200-62.5-25 Mcg/INH) 1 Aer Aer, 1 AER IN BID, AER 01/25/25 Losartan Potassium (Losartan Potassium) 25 Mg Tab, 1 TAB PO DAILY, #90 TAB 1 Refill 01/25/25 Sertraline Hcl (Sertraline Hcl) 100 Mg Tab, 1 TAB PO DAILY, #90 TAB 1 Refill 01/25/25 Fluticasone Propionate (Fluticasone Propionate) 0.05 % Cre, 50 MCG JUANCHO BID for 30 Days, MCG 01/25/25 Beclomethasone Dipropionate (Qvar) 40 Mcg Aer, 40 MCG IN BID, AER 2 PUFFS BID 12/16/13 Baclofen (Baclofen) 10 Mg Tab, 10 MG PO BID PRN for FOR MUSCLE SPASM, MG 12/16/13 Divalproex Sodium (Divalproex Sodium) 500 Mg Tab, 500 MG PO BID, MG 12/16/13 Metformin Hydrochloride (Glucophage) 850 Mg Tab, 850 MG PO BID, TAB 12/16/13 Aspirin (Aspirin) 81 Mg Chw, 81 MG PO DAILY, CHW 12/16/13 Lansoprazole (Lansoprazole) 30 Mg Cap, 30 MG PO DAILY, CAP 12/16/13 Oxycodone Hcl (Roxicodone) 5 Mg Tab, 5 MG PO Q6HPRN PRN for MODERATE PAIN, TAB 12/16/13 Verapamil Hcl (Verapamil Hcl Er) 180 Mg Tab, 180 MG PO DAILY, TAB 12/16/13 Glipizide (Glipizide) 5 Mg Tab, 5 MG PO BID, MG 12/16/13 Information Source: Patient Mode of Arrival: EMS Was a procedure done? Was a procedure done?: No X-Ray, Labs, Meds, VS Vital Signs Date Time Temp Pulse Resp B/P (MAP) Pulse Ox O2 Delivery O2 Flow Rate FiO2 06/10/25 17:54 97 Room Air* 0 21 06/10/25 17:31 91 18 97 Room Air* 0 06/10/25 17:23 98.7 91 19 137/86 (103) 97 98.7 06/10/25 17:01 85 06/10/25 16:59 98.1 103 18 170/114 98 98.1 Lab Test 06/10/25 17:21 06/10/25 17:11 Range/Units POC Glucose 108 H 70-106 mg/dl White Blood Count 7.4 4.4-10.8 10^3/uL Red Blood Count 4.54 4.5-5.90 10^6/uL Hemoglobin 14.6 13.5-17.5 g/dL Hematocrit 43.2 41.0-53.0 % Mean Corpuscular Volume 95.2 80.0-100.0 fL Mean Corpuscular Hemoglobin 32.3 H 28.0-32.0 pg Mean Corpuscular Hemoglobin Concent 33.9 32.0-36.0 g/dL Red Cell Distribution Width 13.0 11.8-14.3 % Platelet Count 261 140-450 10^3/uL Mean Platelet Volume 6.6 L 6.9-10.8 fL Neutrophils (%) (Auto) 77.2 37.0-80.0 % Lymphocytes (%) (Auto) 13.5 10.0-50.0 % Monocytes (%) (Auto) 8.8 0.0-12.0 % Eosinophils (%) (Auto) 0.2 0.0-7.0 % Basophils (%) (Auto) 0.3 0.0-2.0 % Neutrophils # (Auto) 5.7 1.6-8.6 10 ^3/uL Lymphocytes # (Auto) 1.0 0.4-5.4 10 ^3/uL Monocytes # (Auto) 0.7 0-1.3 10 ^3/uL Eosinophils # (Auto) 0 0-0.8 10 ^3/uL Basophils # (Auto) 0 0-0.2 10 ^3/uL Nucleated Red Blood Cells 0.0 % Sodium Level 145 136-145 mmol/L Potassium Level 3.8 3.5-5.1 mmol/L Chloride Level 110 H 98-107 mmol/L Carbon Dioxide Level 23 20-31 mmol/L Anion Gap 12 5-15 Blood Urea Nitrogen 13 9-23 mg/dL Creatinine 1.17 0.700-1.30 mg/dL Glomerular Filtration Rate Calc 67 >90 mL/min BUN/Creatinine Ratio 11.1 10.0-20.0 Serum Glucose 94 74-106 mg/dL Calcium Level 9.6 8.7-10.4 mg/dL Total Bilirubin 0.9 0.2-1.0 mg/dL Aspartate Amino Transferase (AST) 41 H 13-40 U/L Alanine Aminotransferase (ALT) 31 7-40 U/L Alkaline Phosphatase 136 H 46-116 U/L Troponin I High Sensitivity 7 </=54 ng/L Total Protein 7.5 5.7-8.2 g/dL Albumin 4.6 3.2-4.8 g/dL Time of 1ST Reevaluation: 18:29 Reevaluation 1ST: Unchanged Patient Education/Counseling: Diagnosis, Treatment Family Education/Counseling: No Family Present Critical Care Note Critical Care Time?: No Heart Score Heart Score: Heart Score Response (Comments) Value History Highly Suspicious 2 EKG Normal 0 Age >65 2 Risk Factors >3 or Hx ASHD 2 Troponin Normal limit 0 Total 6 I personally scribed for OSVALDO SULLIVAN DO ([email or web address]) on 06/10/25 at 17:32. Electronically submitted by Justice Martinez ([email or web address]). OSVALDO SULLIVAN DO Jun 10, 2025 17:32
[2025-06-10 17:34] LABS: Hematocrit 43.2 % (41.0-53.0); Hemoglobin 14.6 g/dL (13.5-17.5); Mean Corpuscular Hemoglobin 32.3 pg (28.0-32.0); Mean Corpuscular Volume 95.2 fL (80.0-100.0); Nucleated Red Blood Cells % 0.0 %
--- NOTE | 2025-06-10 17:49 | DVH ---
CLINICAL HISTORY: CHEST PAIN TECHNIQUE: Single view of the chest was obtained. COMPARISON: XY CHEST XRAY 1 VIEW on DOS: 02/11/25, XR CHEST 1 VIEW on DOS: 02/10/25, XY CHEST XRAY 1 VIEW on DOS: 01/26/25, XY CHEST PORTABLE on DOS: 01/23/25 FINDINGS: The heart size and pulmonary vasculature are normal. The lungs are clear. IMPRESSION: NO ACUTE CARDIOPULMONARY PROCESS.
[2025-06-10 17:53] LABS: Alanine Aminotransferase 31 U/L (7-40); Albumin 4.6 g/dL (3.2-4.8); Anion Gap 12 (5-15); BUN/Creatinine Ratio 11.1 (10.0-20.0); Bilirubin, Total 0.9 mg/dL (0.2-1.0); Blood Urea Nitrogen 13 mg/dL (9-23); Calcium 9.6 mg/dL (8.7-10.4); Carbon Dioxide 23 mmol/L (20-31); Glucose 94 mg/dL (74-106); Potassium 3.8 mmol/L (3.5-5.1); Total Protein 7.5 g/dL (5.7-8.2)
[2025-06-10 17:59] LABS: Alkaline Phosphatase 136 U/L (46-116); Chloride 110 mmol/L (98-107); Sodium 145 mmol/L (136-145)
[2025-06-10] MEDS ORDERED: NITROGLYCERIN 0.4 MG SL TAB SL PRN (18:15)
[2025-06-10] MEDS ORDERED: ONDANSETRON HCL 4 MG/2 ML VIAL IV PRN (19:30)
[2025-06-10] MEDS ORDERED: ACETAMINOPHEN 325 MG TAB PO PRN (19:30)
[2025-06-10] MEDS ORDERED: DEXTROSE (50%) 50ML SYRG IV PRN (19:30)
[2025-06-10 19:35] VITALS: PULSE 69; RESP 12; O2SAT 97
--- NOTE | 2025-06-10 19:36 | DVHHP2 ---
History of Present Illness Reason for Visit: Chest pain History of Present Illness 69-year-old male presents for evaluation of chest pain. Patient endorses a one day history of substernal pressure-like chest pain that radiates to his left arm with associated numbness. On arrival patient's blood pressure was noted to be elevated in the 180s. Reports also mild shortness for breath. No nausea or vomiting. No other acute complaints. Past Medical History COPD, asthma, hypertension, chronic back pain, depression Past Surgical History Cholecystectomy Family History Noncontributory Smoke: No ALCOHOL: none Drugs: None Lives: with Family Review of Systems Review of Systems Review of systems are currently negative otherwise addressed in HPI. Allergies: Coded Allergies: Haloperidol (Verified Allergy, Severe, 06/10/25) Ketorolac (Verified Allergy, Mild, 10/24/10) Tromethamine (Verified Allergy, Mild, 10/24/10) Medications Current Medications Medications Dose Ordered Sig/Anam Route Start Time Stop Time Status Last Admin Dose Admin Nitroglycerin 0.4 mg Q5MINP PRN SL 06/10/25 18:15 Morphine Sulfate 2 mg Q30M PRN IV 06/10/25 18:15 Exam Vital Signs Vital Signs Date Time Temp Pulse Resp B/P (MAP) Pulse Ox O2 Delivery O2 Flow Rate FiO2 06/10/25 18:00 85 19 146/90 (108) 97 06/10/25 17:54 Room Air* 0 21 06/10/25 17:23 98.7 98.7 Exam Gen: 69-year-old male in mild distress Skin: Warm, dry, normal color and texture, no rash. HEENT: Normocephalic atraumatic, mucous membranes moist and pink. Neck: Cervical and supraclavicular nodes normal without enlargement, trachea is midline, thyroid gland is normal without masses. Pulmonary: Clear to auscultation and percussion bilaterally. Cardiac: Regular rate and rhythm. No murmur Abdomen: Soft, nontender, nondistended, bowel sounds present all 4 quadrants, no guarding, no rigidity, no organomegaly. Extremities: No cyanosis, clubbing, no edema Neuro: Cranial nerves II through XII grossly intact, normal affect and speech, no focal motor deficits. Labs/Xrays ORDERING PHYSICIAN: CARMINE ALEXANDRE DNP PROCEDURE(s): ECIDC - ECHO 2D MODE CARDIAC DOP REASON: CHEST PAIN ORDER NUMBER(s): [id number], ACCESSION NUMBER(s): [id number] APPROVED REPORT EXAM: Two-dimensional and M-mode echocardiogram with Doppler and color Doppler. Blood Pressure: 202/115 mmHg INDICATION Chest Pain RISK FACTORS Height: 5'7", Weight: 165 DIMENSIONS LVDd 4.2 (3.8-5.7cm) LA (2D) 3.6 (1.9-4.0cm) Aortic Root 3.3 (2.0- 3.7cm) LVDs 2.8 (2.5-4.0cm) LA (MM) (1.9-4.0cm) Aortic Cusp Exc 1.8 (1.5- 2.0cm) EF (%) 60.0 (55-70%) Rt. Atrium 3.8 (1.9-4.0cm) Asc. Aorta cm IVSd 0.8 (0.7-1.1cm) RV (D) (1.8-2.4cm) PWd 0.9 (0.7-1.1cm) Mitral Valve Mitral Mitral Stenosis E wave 0.68m/s MV Mean GR. mmHg A wave 0.91m/s MV Peak GR. mmHg E/A ratio 0.7 2D MVA cm2 DECEL Time 302ms PRESS 1/2 Time ms Aortic Valve Aortic Valve Aortic Stenosis V1 0.85m/s AO Mean GR. 3mmHg V2 1.13m/s AO Peak GR. 5mmHg LVOT Diameter 2.2 (1.8-2.4cm) Doppler CYN 2.86cm2 Pulmonic Valve V2 0.88m/s Conclusion LV EF IS 65% AND IS NORMAL NORMAL VALVES NORMAL RV FUNCTION AND SIZE NO EFUSION SIGNED BY: TRANG REID MD SIGNED DATE/TIME: 01/23/25 3638 ORDERING PHYSICIAN: DARCY MANZANO MD PROCEDURE(s): CXRP - CHEST PORTABLE REASON: CHEST PAIN ORDER NUMBER(s): [id number], ACCESSION NUMBER(s): [id number] CLINICAL HISTORY: CHEST PAIN TECHNIQUE: Single view of the chest was obtained. COMPARISON: XY CHEST XRAY 1 VIEW on DOS: 02/11/25, XR CHEST 1 VIEW on DOS: 02/10/25, XY CHEST XRAY 1 VIEW on DOS: 01/26/25, XY CHEST PORTABLE on DOS: 01/23/25 FINDINGS: The heart size and pulmonary vasculature are normal. The lungs are clear. IMPRESSION: NO ACUTE CARDIOPULMONARY PROCESS. ATED BY: RADHA REID MD Labs Test 06/10/25 18:22 06/10/25 17:21 06/10/25 17:11 Range/Units Troponin I High Sensitivity 8 </=54 ng/L POC Glucose 108 H 70-106 mg/dl White Blood Count 7.4 4.4-10.8 10^3/uL Red Blood Count 4.54 4.5-5.90 10^6/uL Hemoglobin 14.6 13.5-17.5 g/dL Hematocrit 43.2 41.0-53.0 % Mean Corpuscular Volume 95.2 80.0-100.0 fL Mean Corpuscular Hemoglobin 32.3 H 28.0-32.0 pg Mean Corpuscular Hemoglobin Concent 33.9 32.0-36.0 g/dL Red Cell Distribution Width 13.0 11.8-14.3 % Platelet Count 261 140-450 10^3/uL Mean Platelet Volume 6.6 L 6.9-10.8 fL Neutrophils (%) (Auto) 77.2 37.0-80.0 % Lymphocytes (%) (Auto) 13.5 10.0-50.0 % Monocytes (%) (Auto) 8.8 0.0-12.0 % Eosinophils (%) (Auto) 0.2 0.0-7.0 % Basophils (%) (Auto) 0.3 0.0-2.0 % Neutrophils # (Auto) 5.7 1.6-8.6 10 ^3/uL Lymphocytes # (Auto) 1.0 0.4-5.4 10 ^3/uL Monocytes # (Auto) 0.7 0-1.3 10 ^3/uL Eosinophils # (Auto) 0 0-0.8 10 ^3/uL Basophils # (Auto) 0 0-0.2 10 ^3/uL Nucleated Red Blood Cells 0.0 % Sodium Level 145 136-145 mmol/L Potassium Level 3.8 3.5-5.1 mmol/L Chloride Level 110 H 98-107 mmol/L Carbon Dioxide Level 23 20-31 mmol/L Anion Gap 12 5-15 Blood Urea Nitrogen 13 9-23 mg/dL Creatinine 1.17 0.700-1.30 mg/dL Glomerular Filtration Rate Calc 67 >90 mL/min BUN/Creatinine Ratio 11.1 10.0-20.0 Serum Glucose 94 74-106 mg/dL Calcium Level 9.6 8.7-10.4 mg/dL Total Bilirubin 0.9 0.2-1.0 mg/dL Aspartate Amino Transferase (AST) 41 H 13-40 U/L Alanine Aminotransferase (ALT) 31 7-40 U/L Alkaline Phosphatase 136 H 46-116 U/L B-Type Natriuretic Peptide 107.82 0-100 pg/mL Total Protein 7.5 5.7-8.2 g/dL Albumin 4.6 3.2-4.8 g/dL SEPSIS Sepsis Screen Date sepsis recognized/suspect: Jun 10, 2025 Time Sepsis recognized/suspect: 1734 Recent Procedure: No On Antibiotic Therapy: No Respiratory Rate >20: No Heart Rate >90: No Temp<36 C (96.8 F) or >38.3 C: No SBP <90 or MAP <65 mmHG: No New Acute Mental Status Change: No Is the patient on CPAP, BIPAP,: No Physician Orders Chest Portable (06/10/25 17:22) Electrocardigram (06/10/25 16:58) Troponin-I Hs (06/10/25 19:58) Electrocardigram (06/10/25 17:58) Electrocardigram (06/10/25 19:58) Admit (06/10/25 18:12) Nitroglycerin Sublingual (Ntrostat Subli (06/10/25 18:15) Morphine Sulfate Injection (06/10/25 18:15) Stat Ekg For Chest Pain (06/10/25 18:12) Notify Md Of Changes From Base (06/10/25 18:12) Brake Operator Helper For 24 Hours (06/10/25 18:12) Emergency Dysrhythmia Protocol (06/10/25 18:12) Rhythm Strips Once Every Shift (06/10/25 18:12) Oxygen By Nasal Cannula (06/10/25 18:12) Vital Signs Date Time Temp Pulse Resp B/P (MAP) Pulse Ox O2 Delivery O2 Flow Rate FiO2 06/10/25 18:00 85 19 146/90 (108) 97 06/10/25 17:54 97 Room Air* 0 21 06/10/25 17:46 83 06/10/25 17:31 91 18 97 Room Air* 0 21 06/10/25 17:23 98.7 91 19 137/86 (103) 97 98.7 06/10/25 17:01 85 06/10/25 16:59 98.1 103 18 170/114 98 98.1 Laboratory Tests Test 06/10/25 17:11 White Blood Count 7.4 10^3/uL (4.4-10.8) Assessment/Plan Assessment/Plan Assessment Chest pain rule out ACS Hypertension Diabetes mellitus Plan Admit the patient to telemetry to the hospitalist Cardiology consultation Resume home medications Continue treatment per orders. Plan discussed with: Patient My Orders Orders - NAOMI FORDE Procedure Category Date Status Time Admit ADMIT 06/10/25 Transmitted 18:12 Nitroglycerin PHA 06/10/25 In Process Sublingual (Ntrostat 18:15 Morphine Sulfate PHA 06/10/25 In Process Injection 18:15 Stat Ekg For Chest [facility] 06/10/25 In Process Pain 18:12 Notify Md Of Changes [facility] 06/10/25 In Process From Base 18:12 Brake Operator Helper For [facility] 06/10/25 In Process 24 Hours 18:12 Emergency Dysrhythmia [facility] 06/10/25 In Process Protocol 18:12 Rhythm Strips Once [facility] 06/10/25 In Process Every Shift 18:12 Oxygen By Nasal RT 06/10/25 Transmitted Cannula 18:12 Date of Service: Jun 10, 2025 Billing Provider: NAOMI FORDE Common Visit Codes: [id number] INP/OBS CARE (HIGH) NAOMI FORDE Jun 10, 2025 19:36
[2025-06-10 20:00] LABS: Urine Budding Yeast OCCASIONAL /hpf (None Seen); Urine Protein, UAD 1+ (Negative)
--- NOTE | 2025-06-10 20:15 | ECG ---
[facility] Test Date: 2025-06-10 Test Time: 20:11:33 Pat Name: CAMILA LAL Department: ED Room: 0235T Gender: M Ekg Monitor Tech: ARIANNE : 1955 Requested By: DARCY MANZANO Order Number: [id number] Reading MD: Jorge Mayorga Measurements Intervals [place] Rate: 76 P: 50 MI: 146 QRS: -14 QRSD: 98 T: 40 QT: 423 QTc: 476 Interpretive Statements Sinus rhythm Borderline prolonged QT interval Baseline wander in lead(s) V4 Electronically Signed On 06-11-2025 15:46:58 PST by Jorge Mayorga Please click the below link to view image of tracing.
[2025-06-10] MEDS: MORPHINE SULFATE INJ 2 MG/ml SYRG IV PRN (20:35)
[2025-06-10 21:46] VITALS: BP 145/88; PULSE 72; RESP 18; RESP 19; TEMP 97.8; O2SAT 97
[2025-06-10] MEDS: ATORVASTATIN 20 MG TAB PO SCH (21:53)
[2025-06-10] MEDS: ACCU-CHEK COMFORT CURVE STRIP VI SCH (21:53)
[2025-06-10] MEDS: InsuLIN REG 1unit/0.01ml Soln (100units/ml) SC SCH (22:00)
[2025-06-11] VITALS (10 sets, daily range): BP systolic 106–144; BP diastolic 55–93; PULSE 48–78; RESP 17–18; TEMP 97.2–97.9; O2SAT 96–98
[2025-06-11] MEDS: HYDROcodone-ACET 5/325MG TAB PO PRN (02:55)
--- NOTE | 2025-06-11 06:36 | ECG ---
[facility] Test Date: 2025-06-10 Test Time: 17:01:50 Pat Name: CAMILA LAL Department: ED Room: 0235T A Gender: M Forest Examiner: JOSE : 1955 Requested By: DARCY MANZANO Order Number: [id number] Reading MD: Jorge Mayorga Measurements Intervals [place] Rate: 85 P: 47 RI: 140 QRS: -28 QRSD: 98 T: 21 QT: 358 QTc: 426 Interpretive Statements Sinus rhythm Borderline left axis deviation RSR' in V1 or V2, right VCD or RVH Electronically Signed On 06-11-2025 15:46:40 PST by Jorge Mayorga Please click the below link to view image of tracing.
--- NOTE | 2025-06-11 06:37 | ECG ---
[facility] Test Date: 2025-06-10 Test Time: 17:46:49 Pat Name: CAMILA LAL Department: ED Room: 0235T A Gender: M Conference And Event Organiser: IAM : 1955 Requested By: DARCY MANZANO Order Number: [id number] Reading MD: Jorge Mayorga Measurements Intervals [place] Rate: 83 P: 54 MO: 146 QRS: -9 QRSD: 95 T: 33 QT: 402 QTc: 473 Interpretive Statements Sinus rhythm Electronically Signed On 06-11-2025 15:46:45 PST by Jorge Mayorga Please click the below link to view image of tracing.
[2025-06-11 09:09] LABS: Potassium 3.7 mmol/L (3.5-5.1)
[2025-06-11 09:10] LABS: Anion Gap 11 (5-15); Calcium 9.1 mg/dL (8.7-10.4); Carbon Dioxide 26 mmol/L (20-31)
[2025-06-11 09:14] LABS: Chloride 108 mmol/L (98-107); Sodium 145 mmol/L (136-145)
[2025-06-11 09:15] LABS: BUN/Creatinine Ratio 18.7 (10.0-20.0); Blood Urea Nitrogen 17 mg/dL (9-23); Glucose 87 mg/dL (74-106)
[2025-06-11] MEDS: REGADENOSON 0.4 MG/5 ML SYRG IV ONE ×2 (10:08→10:10)
--- NOTE | 2025-06-11 11:53 | DVHSR ---
APPROVED REPORT Exam: Nuclear Stress Test BMI: 0 Stress Test Details HR Max Heart Rate (APMHR): 149.509301 bpm Target HR (85% APMHR): 126.731618 bpm BP ECG Stress ECG Conclusion lvef 53% no ischemia inferior wall fixed defect, could be image artifact also NM EXAM: Myocardial Perfusion REST/STRESS Imaging Protocol: Rest Tc-99m/Stress Tc-99m 1 day Resting Data Rest SPECT myocardial perfusion imaging was performed in supine position 45 minutes following the intravenous injection of 10.6 mCi of Tc-99m Sestamibi. Time of rest injection: 0945 Time of rest imagin Administration Route: IV Administration Site: Left AC Pharmacologic Stress Pharmacologic stress test was performed by injecting Regadenoson 0.4 mg IV push followed by the intravenous injection of 30.5 mCi of Tc-99m Sestamibi. Time of stress injection: 1050 Time of stress imagin Administration Route: IV Administration Site: Left AC Gated Stress SPECT was performed 50 minutes after stress injection. The images were gated to evaluate regional wall motion and calculate left ventricular ejection fraction. Nuclear Conclusion Nuclear Findings: negative for ischemia lvef 53% no ischemia inferior wall fixed defect, could be image artifact also
[2025-06-11] MEDS: LOSARTAN POTASSIUM 25 MG TAB PO SCH (12:24)
[2025-06-11] MEDS: ENOXAPARIN SOD 40 MG/0.4 ML SYRINGE SC SCH (12:25)
[2025-06-11] MEDS: VERAPAMIL HCL 180mg SR tab PO SCH (13:04)
--- NOTE | 2025-06-11 13:56 | DVHPN2 ---
Reviewed: Care Plan, H&P, Labs, Medications, Previous Orders, Radiology Changes from previous H/P or p: No Changes Objective Vitals Vital Signs Date Time Temp Pulse Resp B/P (MAP) Pulse Ox O2 Delivery O2 Flow Rate FiO2 06/11/25 13:04 60 139/77 06/11/25 12:28 17 06/11/25 09:00 97.9 98 97.9 06/11/25 08:00 Room Air* 0 21 Intake/Output Intake and Output 06/11/25 07:00 Intake Total 1000 ml Balance 1000 ml Intake Oral 1000 ml Medications Current Medications Medications Dose Ordered Sig/Anam Route Start Time Stop Time Status Last Admin Dose Admin Nitroglycerin 0.4 mg Q5MINP PRN SL 06/10/25 18:15 Morphine Sulfate 2 mg Q30M PRN IV 06/10/25 18:15 06/11/25 12:28 2 MG Aspirin 81 mg DAILY PO 06/11/25 10:00 06/11/25 12:24 81 MG Atorvastatin Calcium 20 mg HS PO 06/10/25 22:00 06/10/25 21:53 20 MG Divalproex Sodium 500 mg BID PO 06/10/25 22:00 06/11/25 12:24 500 MG Losartan Potassium 25 mg DAILY PO 06/11/25 10:00 06/11/25 12:24 25 MG Verapamil HCl 180 mg DAILY PO 06/11/25 10:00 06/11/25 13:04 180 MG Diagnostic Test (Pha) 1 strip ACHS 06/10/25 22:00 06/11/25 12:26 1 STRIP Insulin Human Regular ACHS SC 06/10/25 22:00 Dextrose 50 ml UD PRN IV 06/10/25 19:30 Acetaminophen/ Hydrocodone Bitart 1 tab Q4HP PRN PO 06/10/25 19:30 06/11/25 02:55 1 TAB Ondansetron HCl 4 mg Q4HP PRN IV 06/10/25 19:30 Enoxaparin Sodium 40 mg DAILY SC 06/11/25 10:00 06/11/25 12:25 40 MG Acetaminophen 650 mg Q6HP PRN PO 06/10/25 19:30 Laboratory Results Laboratory Tests 06/10/25 17:11 06/11/25 08:15 Chemistry Test 06/10/25 17:11 06/11/25 08:15 Albumin 4.6 g/dL (3.2-4.8) Calcium Level 9.6 mg/dL (8.7-10.4) 9.1 mg/dL (8.7-10.4) Total Protein 7.5 g/dL (5.7-8.2) Cardiac Markers Test 06/10/25 17:11 B-Type Natriuretic Peptide 107.82 pg/mL (0-100) LFT Test 06/10/25 17:11 Alanine Aminotransferase (ALT) 31 U/L (7-40) Alkaline Phosphatase 136 U/L (46-116) H Aspartate Amino Transferase (AST) 41 U/L (13-40) H Total Bilirubin 0.9 mg/dL (0.2-1.0) Urinalysis Test 06/10/25 18:45 Urine Color Yellow (Yellow) Urine Clarity Turbid (Clear) H Urine pH 6.0 (5.0-9.0) Urine Specific [place] 1.028 (1.001-1.035) Urine Protein 1+ (Negative) H Urine Ketones Trace (Negative) Urine Blood Negative /uL (Negative) Urine Nitrite Negative (Negative) Urine Bilirubin Negative (Negative) Urine Urobilinogen 2 mg/dL (Negative) H Urine Leukocyte Esterase Negative /uL (Negative) Urine RBC 2 /hpf (0 - 3) Urine Microscopic WBC 2 /HPF (0-3) Urine Squamous Epithelial Cells Few /hpf (<5) Urine Calcium Oxalate Crystals Many (None Seen) Urine Bacteria None seen /hpf (None Seen) Urine Hyaline Casts Few /lpf (0 - 2) Urine Mucus Few (None Seen) Urine Yeast (Budding) Occasional /hpf (None Urine Glucose Trace mg/dL (Normal) Labs and/or images reviewed: Labs reviewed by me, Image(s) reviewed by me Assessment/Plan Assessment/Plan Acute chest pain rule out coronary artery disease: Troponin negative, treatment per ACS protocol Consult for Cardiology Dr. Reid Accelerated Hypertension blood pressure systolic 180, verapamil, losartan Diabetes mellitus six sliding scale Acute COPD exacerbation History of asthma Depression Depakote Chronic back pain Time spent 70 minutes Advanced care planning time 20 minutes Patient is full code Plan discussed with: Patient Date of Service: Jun 11, 2025 Billing Provider: RANJEET ROCHA MD Common Visit Codes: [id number] CARE 30-74 MIN RANJEET ROCHA MD Jun 11, 2025 13:56
--- NOTE | 2025-06-11 14:32 | DVHINCON2 ---
Date Seen: Jun 11, [address] Gamino Reason for Consultation Chest pain History of Present Illness This is a 69-year-old male with PMHx of COPD, bipolar disorder, diabetes mellitus type 2, hypertension, and hyperlipidemia who presented with several days of sharp retrosternal chest pain radiating to the left arm. Pain was intermittent and non-exertional. He also reports increased cough over the past few days. On arrival, BP was 170/104. EKG showed no ST-segment elevations. Serial troponins were negative. Given age and multiple cardiac risk factors, he underwent a stress test. Stress test demonstrated EF 53% with no evidence of reversible ischemia. There was an inferior wall fixed defect, likely artifact. Prior echocardiogram from December showed normal EF. Given the negative cardiac workup, cardiology assessed the chest pain as nonACS. Symptoms may be more consistent with COPD exacerbation given associated cough. Family History: Cardiovascular disease Brother Diabetes mellitus G8 MOTHER G8 FATHER FH: cancer G8 SISTER FH: heart attack Brother FH: heart disease G8 MOTHER G8 FATHER Allergies: Coded Allergies: Haloperidol (Verified Allergy, Severe, 06/10/25) Ketorolac (Verified Allergy, Mild, 10/24/10) Tromethamine (Verified Allergy, Mild, 10/24/10) Home Meds Active Scripts Atorvastatin Calcium (ATORVASTATIN CALCIUM) 20 Mg Tab, 20 MG PO HS for 90 Days, #90 TAB Prov:ALPESH SANCHEZ MD 02/13/25 Reported Medications Cholecalciferol (VITAMIN D3) 5,000 Unit Cap, 1 CAP PO DAILY 02/11/25 Tiotropium Morenci-Olodaterol (Stiolto Respimat 2.5-2.5 Mcg/Act) 1 Aer Aer, 1 AER IN DAILY, AER 01/25/25 Qilrrzouwxu-Aeldtkodogby-Uwynq (Trelegy Ellipta 200-62.5-25 Mcg/INH) 1 Aer Aer, 1 AER IN BID, AER 01/25/25 Losartan Potassium (Losartan Potassium) 25 Mg Tab, 1 TAB PO DAILY, #90 TAB 1 Refill 01/25/25 Sertraline Hcl (Sertraline Hcl) 100 Mg Tab, 1 TAB PO DAILY, #90 TAB 1 Refill 01/25/25 Fluticasone Propionate (Fluticasone Propionate) 0.05 % Cre, 50 MCG JUANCHO BID for 30 Days, MCG 01/25/25 Beclomethasone Dipropionate (Qvar) 40 Mcg Aer, 40 MCG IN BID, AER 2 PUFFS BID 12/16/13 Baclofen (Baclofen) 10 Mg Tab, 10 MG PO BID PRN for FOR MUSCLE SPASM, MG 12/16/13 Divalproex Sodium (Divalproex Sodium) 500 Mg Tab, 500 MG PO BID, MG 12/16/13 Metformin Hydrochloride (Glucophage) 850 Mg Tab, 850 MG PO BID, TAB 12/16/13 Aspirin (Aspirin) 81 Mg Chw, 81 MG PO DAILY, CHW 12/16/13 Lansoprazole (Lansoprazole) 30 Mg Cap, 30 MG PO DAILY, CAP 12/16/13 Oxycodone Hcl (Roxicodone) 5 Mg Tab, 5 MG PO Q6HPRN PRN for MODERATE PAIN, TAB 12/16/13 Verapamil Hcl (Verapamil Hcl Er) 180 Mg Tab, 180 MG PO DAILY, TAB 12/16/13 Glipizide (Glipizide) 5 Mg Tab, 5 MG PO BID, MG 12/16/13 Current Medications Current Medications Medications (Trade) Dose Ordered Sig/Anam Route PRN Reason Start Time Stop Time Status Last Admin Nitroglycerin (Ntrostat Sublingual) 0.4 mg Q5MINP PRN SL FOR CHEST PAIN 06/10/25 18:15 Morphine Sulfate 2 mg Q30M PRN IV FOR CHEST PAIN 06/10/25 18:15 06/11/25 12:28 Aspirin 81 mg DAILY PO 06/11/25 10:00 06/11/25 12:24 Atorvastatin Calcium (Lipitor) 20 mg HS PO 06/10/25 22:00 06/10/25 21:53 Divalproex Sodium (Depakote "Dr" Tablet) 500 mg BID PO 06/10/25 22:00 06/11/25 12:24 Losartan Potassium (Cozaar Tablet) 25 mg DAILY PO 06/11/25 10:00 06/11/25 12:24 Verapamil HCl (Calan Sr) 180 mg DAILY PO 06/11/25 10:00 06/11/25 13:04 Diagnostic Test (Pha) (Accu-Chek Comfort Curve T) 1 strip ACHS 06/10/25 22:00 06/11/25 12:26 Insulin Human Regular (InsuLIN R) ACHS SC 06/10/25 22:00 Dextrose 50 ml UD PRN IV Blood Sugar LESS THAN 60 06/10/25 19:30 Acetaminophen/ Hydrocodone Bitart ([place] 5/325MG Tab) 1 tab Q4HP PRN PO MODERATE PAIN (4-6 PAIN SCALE) 06/10/25 19:30 06/11/25 02:55 Ondansetron HCl (Zofran) 4 mg Q4HP PRN IV NAUSEA / VOMITING 06/10/25 19:30 Enoxaparin Sodium (Lovenox) 40 mg DAILY SC 06/11/25 10:00 06/11/25 12:25 Acetaminophen (Tylenol Tablet) 650 mg Q6HP PRN PO PAIN SCALE 1-3 OR TEMP>100.4 06/10/25 19:30 Review of Systems REVIEW OF SYSTEMS: Negative except as stated in HPI. Vital Signs Vital Signs Date Time Temp Pulse Resp B/P (MAP) Pulse Ox O2 Delivery O2 Flow Rate FiO2 06/11/25 13:04 60 139/77 06/11/25 12:28 17 06/11/25 09:00 97.9 98 97.9 06/11/25 08:00 Room Air* 0 21 Physical Exam General: Alert, oriented, in no acute distress. HEENT: PERRLA, mucous membranes moist. Neck: Supple, no JVD. CV: RRR, no murmurs, rubs, or gallops. Resp: Mild diffuse wheezing, no crackles, no respiratory distress. Abd: Soft, non-tender, non-distended. Ext: No edema, pulses 2+ bilaterally. Neuro: No focal deficits. Skin: Warm, dry. Labs/Diagnostic Data Labs Test 06/11/25 12:32 06/11/25 08:15 06/10/25 20:10 06/10/25 18:45 Range/Units POC Glucose 110 H 70-106 mg/dl Sodium Level 145 136-145 mmol/L Potassium Level 3.7 3.5-5.1 mmol/L Chloride Level 108 H 98-107 mmol/L Carbon Dioxide Level 26 20-31 mmol/L Anion Gap 11 5-15 Blood Urea Nitrogen 17 9-23 mg/dL Creatinine 0.91 0.700-1.30 mg/dL Glomerular Filtration Rate Calc 90 >90 mL/min BUN/Creatinine Ratio 18.7 10.0-20.0 Serum Glucose 87 74-106 mg/dL Calcium Level 9.1 8.7-10.4 mg/dL Troponin I High Sensitivity 10 </=54 ng/L Urine Color Yellow Yellow Urine Clarity Turbid H Clear Urine pH 6.0 5.0-9.0 Urine Specific [place] 1.028 1.001-1.035 Urine Protein 1+ H Negative Urine Ketones Trace Negative Urine Blood Negative Negative /uL Urine Nitrite Negative Negative Urine Bilirubin Negative Negative Urine Urobilinogen 2 H Negative mg/dL Urine Leukocyte Esterase Negative Negative /uL Urine RBC 2 0 - 3 /hpf Urine Microscopic WBC 2 0-3 /HPF Urine Squamous Epithelial Cells Few <5 /hpf Urine Calcium Oxalate Crystals Many None Seen Urine Bacteria None seen None Seen /hpf Urine Hyaline Casts Few 0 - 2 /lpf Urine Mucus Few None Seen Urine Yeast (Budding) Occasional None Seen /hpf Urine Glucose Trace Normal mg/dL Test 06/10/25 17:11 Range/Units White Blood Count 7.4 4.4-10.8 10^3/uL Red Blood Count 4.54 4.5-5.90 10^6/uL Hemoglobin 14.6 13.5-17.5 g/dL Hematocrit 43.2 41.0-53.0 % Mean Corpuscular Volume 95.2 80.0-100.0 fL Mean Corpuscular Hemoglobin 32.3 H 28.0-32.0 pg Mean Corpuscular Hemoglobin Concent 33.9 32.0-36.0 g/dL Red Cell Distribution Width 13.0 11.8-14.3 % Platelet Count 261 140-450 10^3/uL Mean Platelet Volume 6.6 L 6.9-10.8 fL Neutrophils (%) (Auto) 77.2 37.0-80.0 % Lymphocytes (%) (Auto) 13.5 10.0-50.0 % Monocytes (%) (Auto) 8.8 0.0-12.0 % Eosinophils (%) (Auto) 0.2 0.0-7.0 % Basophils (%) (Auto) 0.3 0.0-2.0 % Neutrophils # (Auto) 5.7 1.6-8.6 10 ^3/uL Lymphocytes # (Auto) 1.0 0.4-5.4 10 ^3/uL Monocytes # (Auto) 0.7 0-1.3 10 ^3/uL Eosinophils # (Auto) 0 0-0.8 10 ^3/uL Basophils # (Auto) 0 0-0.2 10 ^3/uL Nucleated Red Blood Cells 0.0 % Total Bilirubin 0.9 0.2-1.0 mg/dL Aspartate Amino Transferase (AST) 41 H 13-40 U/L Alanine Aminotransferase (ALT) 31 7-40 U/L Alkaline Phosphatase 136 H 46-116 U/L B-Type Natriuretic Peptide 107.82 0-100 pg/mL Total Protein 7.5 5.7-8.2 g/dL Albumin 4.6 3.2-4.8 g/dL Assessment 1. Chest pain non-cardiac, ACS ruled out EKG without ischemic changes. Serial troponins negative. Stress test: EF 53%, no reversible ischemia, inferior fixed defect likely artifact. Echo from December with normal EF. Plan: No acute cardiology intervention required. Continue monitoring; treat underlying pulmonary cause. 2. COPD exacerbation Complaints of increased cough; wheezing on exam. Plan: Continue bronchodilators and inhaled therapies. Consider steroids if symptoms worsen. Monitor oxygenation. 3. Hypertension BP 170/104 on arrival. Plan: Resume home antihypertensives. Adjust as needed. 4. Diabetes mellitus type 2 Plan: glucose control inpatient. 5. Hyperlipidemia Plan: Continue statin. 6. Bipolar disorder Plan: Continue home psychiatric medications. Case discussed with Dr Reid Plan discussed with: Patient, Other (rn) NYHA Physical activity limitations: Class1(None)absent sob, Date of Service: Jun 11, 2025 Billing Provider: WILBER MCCLURE Sr., MD Cardiology Common Codes: [id number] CARE 30-74 MIN MARTÍNEZ MCKEON RESIDENT Jun 11, 2025 14:32
[2025-06-11] MEDS: IPRATROPIUM BROM 0.5 MG/2.5ML INH SOL NEB SCH (18:00)
[2025-06-11] MEDS: ALBUTEROL SULF 2.5 MG/0.5ML(0.5%) NEB SOLN NEB SCH (18:00)
--- NOTE | 2025-06-11 21:33 | DVHINCON2 ---
Date Seen: Jun 11, [address] Gamino Reason for Consultation Chest pain History of Present Illness This is a 69-year-old male with a PMH of COPD, bipolar disorder, diabetes mellitus type 2, hypertension, and hyperlipidemia who presented to the ED with complaints of several days of sharp retrosternal chest pain radiating to the left arm. Pain was intermittent and non-exertional. He also reports increased co ugh over the past few days. On arrival, BP was 170/104. EKG showed no ST-segment elevations. Serial troponins were negative. Given age and multiple cardiac risk factors, he underwent a stress test. Stress test demonstrated EF 53% with no evidence of reversible ischemia. There was an inferior wall fixed defect, likely artifact. Prior echocardiogram from December showed normal EF. Given the negative cardiac workup, cardiology assessed the chest pain as nonACS. Symptoms may be more consistent with COPD exacerbation given associated cough. Family History: Cardiovascular disease Brother Diabetes mellitus G8 MOTHER G8 FATHER FH: cancer G8 SISTER FH: heart attack Brother FH: heart disease G8 MOTHER G8 FATHER Allergies: Coded Allergies: Haloperidol (Verified Allergy, Severe, 06/10/25) Ketorolac (Verified Allergy, Mild, 10/24/10) Tromethamine (Verified Allergy, Mild, 10/24/10) Home Meds Active Scripts Atorvastatin Calcium (ATORVASTATIN CALCIUM) 20 Mg Tab, 20 MG PO HS for 90 Days, #90 TAB Prov:ALPESH SANCHEZ MD 02/13/25 Reported Medications Cholecalciferol (VITAMIN D3) 5,000 Unit Cap, 1 CAP PO DAILY 02/11/25 Tiotropium [place]-Olodaterol (Stiolto Respimat 2.5-2.5 Mcg/Act) 1 Aer Aer, 1 AER IN DAILY, AER 01/25/25 Mjaujbyemgs-Rxtzurywjaoh-Glffe (Trelegy Ellipta 200-62.5-25 Mcg/INH) 1 Aer Aer, 1 AER IN BID, AER 01/25/25 Losartan Potassium (Losartan Potassium) 25 Mg Tab, 1 TAB PO DAILY, #90 TAB 1 Refill 01/25/25 Sertraline Hcl (Sertraline Hcl) 100 Mg Tab, 1 TAB PO DAILY, #90 TAB 1 Refill 01/25/25 Fluticasone Propionate (Fluticasone Propionate) 0.05 % Cre, 50 MCG JUANCHO BID for 30 Days, MCG 01/25/25 Beclomethasone Dipropionate (Qvar) 40 Mcg Aer, 40 MCG IN BID, AER 2 PUFFS BID 12/16/13 Baclofen (Baclofen) 10 Mg Tab, 10 MG PO BID PRN for FOR MUSCLE SPASM, MG 12/16/13 Divalproex Sodium (Divalproex Sodium) 500 Mg Tab, 500 MG PO BID, MG 12/16/13 Metformin Hydrochloride (Glucophage) 850 Mg Tab, 850 MG PO BID, TAB 12/16/13 Aspirin (Aspirin) 81 Mg Chw, 81 MG PO DAILY, CHW 12/16/13 Lansoprazole (Lansoprazole) 30 Mg Cap, 30 MG PO DAILY, CAP 12/16/13 Oxycodone Hcl (Roxicodone) 5 Mg Tab, 5 MG PO Q6HPRN PRN for MODERATE PAIN, TAB 12/16/13 Verapamil Hcl (Verapamil Hcl Er) 180 Mg Tab, 180 MG PO DAILY, TAB 12/16/13 Glipizide (Glipizide) 5 Mg Tab, 5 MG PO BID, MG 12/16/13 Current Medications Current Medications Medications (Trade) Dose Ordered Sig/Anam Route PRN Reason Start Time Stop Time Status Last Admin Nitroglycerin (Ntrostat Sublingual) 0.4 mg Q5MINP PRN SL FOR CHEST PAIN 06/10/25 18:15 Morphine Sulfate 2 mg Q30M PRN IV FOR CHEST PAIN 06/10/25 18:15 06/11/25 12:28 Aspirin 81 mg DAILY PO 06/11/25 10:00 06/11/25 12:24 Atorvastatin Calcium (Lipitor) 20 mg HS PO 06/10/25 22:00 06/10/25 21:53 Divalproex Sodium (Depakote "Dr" Tablet) 500 mg BID PO 06/10/25 22:00 06/11/25 12:24 Losartan Potassium (Cozaar Tablet) 25 mg DAILY PO 06/11/25 10:00 06/11/25 12:24 Verapamil HCl (Calan Sr) 180 mg DAILY PO 06/11/25 10:00 06/11/25 13:04 Diagnostic Test (Pha) (Accu-Chek Comfort Curve T) 1 strip ACHS 06/10/25 22:00 06/11/25 12:26 Insulin Human Regular (InsuLIN R) ACHS SC 06/10/25 22:00 Dextrose 50 ml UD PRN IV Blood Sugar LESS THAN 60 06/10/25 19:30 Acetaminophen/ Hydrocodone Bitart ([place] 5/325MG Tab) 1 tab Q4HP PRN PO MODERATE PAIN (4-6 PAIN SCALE) 06/10/25 19:30 06/11/25 02:55 Ondansetron HCl (Zofran) 4 mg Q4HP PRN IV NAUSEA / VOMITING 06/10/25 19:30 Enoxaparin Sodium (Lovenox) 40 mg DAILY SC 06/11/25 10:00 06/11/25 12:25 Acetaminophen (Tylenol Tablet) 650 mg Q6HP PRN PO PAIN SCALE 1-3 OR TEMP>100.4 06/10/25 19:30 Fluticasone Propionate (Flonase [place]) 50 mcg Q12HR EACHNOSTRI 06/11/25 22:00 Albuterol (Ventolin Medneb) 2.5 mg Q4HR NEB 06/11/25 18:00 Ipratropium [place] (Atrovent Medneb) 0.5 mg Q4HR NEB 06/11/25 18:00 Review of Systems Negative except as stated in HPI. Vital Signs Vital Signs Date Time Temp Pulse Resp B/P (MAP) Pulse Ox O2 Delivery O2 Flow Rate FiO2 06/11/25 13:04 60 139/77 06/11/25 13:00 97.4 17 97 97.4 06/11/25 08:00 Room Air* 0 21 Physical Exam GENERAL: Alert and oriented x 3. No acute distress. EYES: PERRL, EOMI. Anicteric. HENT: Moist mucous membranes. LUNGS: Clear to auscultation bilaterally. CARDIOVASCULAR: Regular rate and rhythm. ABDOMEN: Soft, nontender and nondistended. EXTREMITIES: No edema. NEUROLOGIC: No focal neurological deficits. SKIN: Warm, dry. Labs/Diagnostic Data Labs Test 06/11/25 12:32 06/11/25 08:15 06/10/25 20:10 06/10/25 18:45 Range/Units POC Glucose 110 H 70-106 mg/dl Sodium Level 145 136-145 mmol/L Potassium Level 3.7 3.5-5.1 mmol/L Chloride Level 108 H 98-107 mmol/L Carbon Dioxide Level 26 20-31 mmol/L Anion Gap 11 5-15 Blood Urea Nitrogen 17 9-23 mg/dL Creatinine 0.91 0.700-1.30 mg/dL Glomerular Filtration Rate Calc 90 >90 mL/min BUN/Creatinine Ratio 18.7 10.0-20.0 Serum Glucose 87 74-106 mg/dL Calcium Level 9.1 8.7-10.4 mg/dL Troponin I High Sensitivity 10 </=54 ng/L Urine Color Yellow Yellow Urine Clarity Turbid H Clear Urine pH 6.0 5.0-9.0 Urine Specific [place] 1.028 1.001-1.035 Urine Protein 1+ H Negative Urine Ketones Trace Negative Urine Blood Negative Negative /uL Urine Nitrite Negative Negative Urine Bilirubin Negative Negative Urine Urobilinogen 2 H Negative mg/dL Urine Leukocyte Esterase Negative Negative /uL Urine RBC 2 0 - 3 /hpf Urine Microscopic WBC 2 0-3 /HPF Urine Squamous Epithelial Cells Few <5 /hpf Urine Calcium Oxalate Crystals Many None Seen Urine Bacteria None seen None Seen /hpf Urine Hyaline Casts Few 0 - 2 /lpf Urine Mucus Few None Seen Urine Yeast (Budding) Occasional None Seen /hpf Urine Glucose Trace Normal mg/dL Test 06/10/25 17:11 Range/Units White Blood Count 7.4 4.4-10.8 10^3/uL Red Blood Count 4.54 4.5-5.90 10^6/uL Hemoglobin 14.6 13.5-17.5 g/dL Hematocrit 43.2 41.0-53.0 % Mean Corpuscular Volume 95.2 80.0-100.0 fL Mean Corpuscular Hemoglobin 32.3 H 28.0-32.0 pg Mean Corpuscular Hemoglobin Concent 33.9 32.0-36.0 g/dL Red Cell Distribution Width 13.0 11.8-14.3 % Platelet Count 261 140-450 10^3/uL Mean Platelet Volume 6.6 L 6.9-10.8 fL Neutrophils (%) (Auto) 77.2 37.0-80.0 % Lymphocytes (%) (Auto) 13.5 10.0-50.0 % Monocytes (%) (Auto) 8.8 0.0-12.0 % Eosinophils (%) (Auto) 0.2 0.0-7.0 % Basophils (%) (Auto) 0.3 0.0-2.0 % Neutrophils # (Auto) 5.7 1.6-8.6 10 ^3/uL Lymphocytes # (Auto) 1.0 0.4-5.4 10 ^3/uL Monocytes # (Auto) 0.7 0-1.3 10 ^3/uL Eosinophils # (Auto) 0 0-0.8 10 ^3/uL Basophils # (Auto) 0 0-0.2 10 ^3/uL Nucleated Red Blood Cells 0.0 % Total Bilirubin 0.9 0.2-1.0 mg/dL Aspartate Amino Transferase (AST) 41 H 13-40 U/L Alanine Aminotransferase (ALT) 31 7-40 U/L Alkaline Phosphatase 136 H 46-116 U/L B-Type Natriuretic Peptide 107.82 0-100 pg/mL Total Protein 7.5 5.7-8.2 g/dL Albumin 4.6 3.2-4.8 g/dL Microbiology Date/Time Source Procedure Growth Status 06/11/25 02:30 Nose MRSA Screen - Final Complete Assessment Chest pain non-cardiac, ACS ruled out. COPD exacerbation. Hypertension. Diabetes mellitus type 2. Hyperlipidemia. Bipolar disorder. Plan/Recommendation I agree with your ongoing assessment and care of plan. Patient has been seen by Ann Howell Resident on my behalf, we have discussed the plan with the patient. EKG without ischemic changes. Serial troponins negative. Stress test: EF 53%, no reversible ischemia, inferior fixed defect likely artifact. Echo from December with normal EF. Resume home antihypertensives. Continue bronchodilators and inhaled therapies. Consider steroids if symptoms worsen. Monitor oxygenation. Glucose control inpatient. Continue statin. Continue home psychiatric medications. Additional plan as per the hospital course. Plan discussed with: Patient NYHA Physical activity limitations: Class1(None)absent sob, Date of Service: Jun 11, 2025 Billing Provider: TRANG CHUNG MD Cardiology Common Codes: [id number] INP/OBS CARE (High) Cardiology Consultation Codes: [id number] CONSULT <45MIN TRANG CHUNG MD Jun 11, 2025 16:03
[2025-06-11] MEDS: FLUTICASONE PROP NASAL SPR 0.05 % (50MCG) 16GM EACHNOSTRI SCH (22:17)
[2025-06-12] VITALS (10 sets, daily range): BP systolic 98–134; BP diastolic 71–100; PULSE 54–85; RESP 16–18; TEMP 97–98.2; O2SAT 96–100
--- NOTE | 2025-06-12 09:45 | DVHPN2 ---
Reviewed: Care Plan, H&P, Labs, Medications, Previous Orders, Radiology Changes from previous H/P or p: No Changes Objective Vitals Vital Signs Date Time Temp Pulse Resp B/P (MAP) Pulse Ox O2 Delivery O2 Flow Rate FiO2 06/12/25 09:27 133/90 06/12/25 09:26 75 06/12/25 09:00 97.7 16 100 97.7 06/12/25 08:00 Room Air* 0 21 Intake/Output Intake and Output 06/12/25 07:00 Intake Total 1750 ml Balance 1750 ml Intake Oral 1750 ml # Voids 13 # Bowel Movements 2 Medications Current Medications Medications Dose Ordered Sig/Anam Route Start Time Stop Time Status Last Admin Dose Admin Nitroglycerin 0.4 mg Q5MINP PRN SL 06/10/25 18:15 Morphine Sulfate 2 mg Q30M PRN IV 06/10/25 18:15 06/11/25 12:28 2 MG Aspirin 81 mg DAILY PO 06/11/25 10:00 06/12/25 09:26 81 MG Atorvastatin Calcium 20 mg HS PO 06/10/25 22:00 06/11/25 22:16 20 MG Divalproex Sodium 500 mg BID PO 06/10/25 22:00 06/12/25 09:27 500 MG Losartan Potassium 25 mg DAILY PO 06/11/25 10:00 06/12/25 09:27 25 MG Verapamil HCl 180 mg DAILY PO 06/11/25 10:00 06/12/25 09:26 180 MG Diagnostic Test (Pha) 1 strip ACHS 06/10/25 22:00 06/12/25 06:35 1 STRIP Insulin Human Regular ACHS SC 06/10/25 22:00 Dextrose 50 ml UD PRN IV 06/10/25 19:30 Acetaminophen/ Hydrocodone Bitart 1 tab Q4HP PRN PO 06/10/25 19:30 06/11/25 02:55 1 TAB Ondansetron HCl 4 mg Q4HP PRN IV 06/10/25 19:30 Enoxaparin Sodium 40 mg DAILY SC 06/11/25 10:00 06/12/25 09:27 40 MG Acetaminophen 650 mg Q6HP PRN PO 06/10/25 19:30 Fluticasone Propionate 50 mcg Q12HR EACHNOSTRI 06/11/25 22:00 06/11/25 22:17 50 MCG Laboratory Results Laboratory Tests 06/10/25 17:11 06/11/25 08:15 Urinalysis Test 06/10/25 18:45 Urine Color Yellow (Yellow) Urine Clarity Turbid (Clear) H Urine pH 6.0 (5.0-9.0) Urine Specific [place] 1.028 (1.001-1.035) Urine Protein 1+ (Negative) H Urine Ketones Trace (Negative) Urine Blood Negative /uL (Negative) Urine Nitrite Negative (Negative) Urine Bilirubin Negative (Negative) Urine Urobilinogen 2 mg/dL (Negative) H Urine Leukocyte Esterase Negative /uL (Negative) Urine RBC 2 /hpf (0 - 3) Urine Microscopic WBC 2 /HPF (0-3) Urine Squamous Epithelial Cells Few /hpf (<5) Urine Calcium Oxalate Crystals Many (None Seen) Urine Bacteria None seen /hpf (None Seen) Urine Hyaline Casts Few /lpf (0 - 2) Urine Mucus Few (None Seen) Urine Yeast (Budding) Occasional /hpf (None Urine Glucose Trace mg/dL (Normal) Microbiology Microbiology Date/Time Source Procedure Growth Status 06/11/25 02:30 Nose MRSA Screen - Final Complete Labs and/or images reviewed: Labs reviewed by me, Image(s) reviewed by me Assessment/Plan Assessment/Plan Acute chest pain rule out coronary artery disease: Troponin negative, treatment per ACS protocol Consult for Cardiology Dr. Reid appreciated Accelerated Hypertension blood pressure systolic 180, verapamil, losartan Diabetes mellitus insulin sliding scale Acute COPD exacerbation History of asthma Depression Depakote Chronic back pain Time spent 50 minutes Advanced care planning time 20 minutes Patient is full code Plan discussed with: Patient My Orders Orders - RANJEET ROCHA MD Procedure Category Date Status Time * Cardiology Consult CONS 06/11/25 Transmitted 13:52 Fluticasone Nasal PHA 06/11/25 In Process [place] (Flonase [place]) 22:00 Date of Service: Jun 12, 2025 Billing Provider: RANJEET ROCHA MD Common Visit Codes: [id number] INP/OBS CARE(HIGH) RANJEET ROCHA MD Jun 12, 2025 09:45
[2025-06-12] MEDS: IPRATROPIUM BROM 0.5 MG/2.5ML INH SOL NEB PRN (22:32)
[2025-06-12] MEDS: ALBUTEROL SULF 2.5 MG/0.5ML(0.5%) NEB SOLN NEB PRN (22:32)
--- NOTE | 2025-06-12 23:18 | DVHPN2 ---
Progress Note - Dictate Date Seen: Jun 12, 2025 Medical Necessity Reason Pt with a Central, PICC or Fol: No Subjective Patient was seen and evaluated in follow up. Patient is complaining of chest discomfort. BS are WNL. MRSA is negative. Telemetry reviewed. vital signs Vital Sign Date Time Temp Pulse Resp B/P (MAP) Pulse Ox O2 Delivery O2 Flow Rate FiO2 06/12/25 16:42 98.1 72 16 98/71 (80) 98 98.1 06/12/25 10:00 Room Air* 0 21 Total Intake and Output 06/11/25 06/11/25 06/12/25 15:00 23:00 07:00 Intake Total 950 ml 800 ml Balance 950 ml 800 ml medications Current Medications Medications Dose Ordered Sig/Anam Route Start Time Stop Time Status Last Admin Dose Admin Nitroglycerin 0.4 mg Q5MINP PRN SL 06/10/25 18:15 Morphine Sulfate 2 mg Q30M PRN IV 06/10/25 18:15 06/11/25 12:28 2 MG Aspirin 81 mg DAILY PO 06/11/25 10:00 06/12/25 09:26 81 MG Atorvastatin Calcium 20 mg HS PO 06/10/25 22:00 06/11/25 22:16 20 MG Divalproex Sodium 500 mg BID PO 06/10/25 22:00 06/12/25 09:27 500 MG Losartan Potassium 25 mg DAILY PO 06/11/25 10:00 06/12/25 09:27 25 MG Verapamil HCl 180 mg DAILY PO 06/11/25 10:00 06/12/25 09:26 180 MG Diagnostic Test (Pha) 1 strip ACHS 06/10/25 22:00 06/12/25 11:30 1 STRIP Insulin Human Regular ACHS SC 06/10/25 22:00 Dextrose 50 ml UD PRN IV 06/10/25 19:30 Acetaminophen/ Hydrocodone Bitart 1 tab Q4HP PRN PO 06/10/25 19:30 06/11/25 02:55 1 TAB Ondansetron HCl 4 mg Q4HP PRN IV 06/10/25 19:30 Enoxaparin Sodium 40 mg DAILY SC 06/11/25 10:00 06/12/25 09:27 40 MG Acetaminophen 650 mg Q6HP PRN PO 06/10/25 19:30 Fluticasone Propionate 50 mcg Q12HR EACHNOSTRI 06/11/25 22:00 06/12/25 11:17 50 MCG objective GENERAL: Alert and oriented x 3. No acute distress. EYES: PERRL, EOMI. Anicteric. HENT: Moist mucous membranes. LUNGS: Clear to auscultation bilaterally. CARDIOVASCULAR: Regular rate and rhythm. ABDOMEN: Soft, nontender and nondistended. EXTREMITIES: No edema. NEUROLOGIC: No focal neurological deficits. SKIN: Warm, dry. laboratory and microbiology Laboratory Tests 06/11/25 08:15 06/10/25 17:11 Test 06/11/25 08:15 Range/Units Serum Glucose 87 74-106 mg/dL Problem List Chest pain non-cardiac, ACS ruled out. COPD exacerbation. Hypertension. Diabetes mellitus type 2. Hyperlipidemia. Bipolar disorder. Assessment/Plan Continued all current supportive medical care. Morphine and [place] for pain management. Aspirin, Lipitor. DVT prophylactics. Losartan. Nitro SL. Additional plan as per the hospital course. Plan discussed with: Patient TRANG CHUNG MD Jun 12, 2025 17:47
[2025-06-13] VITALS (11 sets, daily range): BP systolic 101–131; BP diastolic 56–92; PULSE 65–94; RESP 16–18; TEMP 97.2–98.3; O2SAT 94–100
--- NOTE | 2025-06-13 08:44 | DVHPN2 ---
Reviewed: Care Plan, H&P, Labs, Medications, Previous Orders, Radiology Changes from previous H/P or p: No Changes Objective Vitals Vital Signs Date Time Temp Pulse Resp B/P (MAP) Pulse Ox O2 Delivery O2 Flow Rate FiO2 06/13/25 07:01 96 Room Air 06/13/25 07:01 0 21 06/13/25 06:59 78 16 06/13/25 05:00 98.3 123/92 (102) 98.3 Intake/Output Intake and Output 06/13/25 07:00 Intake Total 1570 ml Balance 1570 ml Intake Oral 1570 ml # Voids 20 # Bowel Movements 3 Medications Current Medications Medications Dose Ordered Sig/Anam Route Start Time Stop Time Status Last Admin Dose Admin Nitroglycerin 0.4 mg Q5MINP PRN SL 06/10/25 18:15 Morphine Sulfate 2 mg Q30M PRN IV 06/10/25 18:15 06/11/25 12:28 2 MG Aspirin 81 mg DAILY PO 06/11/25 10:00 06/12/25 09:26 81 MG Atorvastatin Calcium 20 mg HS PO 06/10/25 22:00 06/12/25 21:23 20 MG Divalproex Sodium 500 mg BID PO 06/10/25 22:00 06/12/25 21:23 500 MG Losartan Potassium 25 mg DAILY PO 06/11/25 10:00 06/12/25 09:27 25 MG Verapamil HCl 180 mg DAILY PO 06/11/25 10:00 06/12/25 09:26 180 MG Diagnostic Test (Pha) 1 strip ACHS 06/10/25 22:00 06/13/25 06:08 1 STRIP Insulin Human Regular ACHS SC 06/10/25 22:00 Dextrose 50 ml UD PRN IV 06/10/25 19:30 Acetaminophen/ Hydrocodone Bitart 1 tab Q4HP PRN PO 06/10/25 19:30 06/13/25 06:58 1 TAB Ondansetron HCl 4 mg Q4HP PRN IV 06/10/25 19:30 Enoxaparin Sodium 40 mg DAILY SC 06/11/25 10:00 06/12/25 09:27 40 MG Acetaminophen 650 mg Q6HP PRN PO 06/10/25 19:30 Fluticasone Propionate 50 mcg Q12HR EACHNOSTRI 06/11/25 22:00 06/12/25 21:23 50 MCG Albuterol 2.5 mg Q4HPRN PRN NEB 06/12/25 22:00 06/13/25 06:59 2.5 MG Ipratropium [place] 0.5 mg Q4HPRN PRN NEB 06/12/25 22:00 06/13/25 06:59 0.5 MG Laboratory Results Laboratory Tests 06/10/25 17:11 06/11/25 08:15 Urinalysis Test 06/10/25 18:45 Urine Color Yellow (Yellow) Urine Clarity Turbid (Clear) H Urine pH 6.0 (5.0-9.0) Urine Specific [place] 1.028 (1.001-1.035) Urine Protein 1+ (Negative) H Urine Ketones Trace (Negative) Urine Blood Negative /uL (Negative) Urine Nitrite Negative (Negative) Urine Bilirubin Negative (Negative) Urine Urobilinogen 2 mg/dL (Negative) H Urine Leukocyte Esterase Negative /uL (Negative) Urine RBC 2 /hpf (0 - 3) Urine Microscopic WBC 2 /HPF (0-3) Urine Squamous Epithelial Cells Few /hpf (<5) Urine Calcium Oxalate Crystals Many (None Seen) Urine Bacteria None seen /hpf (None Seen) Urine Hyaline Casts Few /lpf (0 - 2) Urine Mucus Few (None Seen) Urine Yeast (Budding) Occasional /hpf (None Urine Glucose Trace mg/dL (Normal) Microbiology Microbiology Date/Time Source Procedure Growth Status 06/11/25 02:30 Nose MRSA Screen - Final Complete Labs and/or images reviewed: Labs reviewed by me, Image(s) reviewed by me Assessment/Plan Assessment/Plan Acute chest pain rule out coronary artery disease: Troponin negative, treatment per ACS protocol Consult for Cardiology Dr. Reid appreciated Accelerated Hypertension blood pressure systolic 180, verapamil, losartan Diabetes mellitus insulin sliding scale Acute COPD exacerbation History of asthma Depression Depakote Chronic back pain Time spent 49 minutes Advanced care planning time 20 minutes Patient is full code Plan discussed with: Patient Date of Service: Jun 13, 2025 Billing Provider: RANJEET ROCHA MD Common Visit Codes: [id number] INP/OBS CARE(HIGH) RANJEET ROCHA MD Jun 13, 2025 08:44
--- NOTE | 2025-06-13 11:09 | DVH ---
CT CT AB PEL WO CON-NO ORAL OR IV INDICATION: Rule out enlarged prostate EXAM DATE: 06/13/2025 10:23 AM COMPARISON: None RADIATION DOSE: CTDIvol: 11.93 mGy, DLP: 743.91 mGy*cm PROCEDURE: Helical CT images were obtained of the abdomen and pelvis without IV contrast Sagittal and coronal reconstructions are provided. ORAL CONTRAST: None. ADDITIONAL IMAGES / REFORMATS: None All CT scans at this medical facility are performed using dose modulation techniques as appropriate to a performed exam including the following: Automated exposure control was utilized; adjustment of the MA and/or KV according to patient size; and use of iterative reconstruction technique. FINDINGS: LUNG BASE: Normal. LIVER: Normal. GALLBLADDER AND BILIARY TREE: Hillary clips are noted. No intra- or extrahepatic biliary ductal dilation. PANCREAS: Normal. SPLEEN: Normal. BOWEL: Normal. ADRENALS: Normal. KIDNEYS AND URETER: Normal. BLADDER: Normal. REPRODUCTIVE ORGANS: Prostate calcifications. Otherwise unremarkable . LYMPH NODES:No lymphadenopathy. PERITONEUM: No ascites or free air. No other fluid collection. VESSELS: Scattered atherosclerotic calcifications are noted. RETROPERITONEUM: Normal. ABDOMINAL WALL: Normal. BONES: Scattered osseous degenerative changes are noted. IMPRESSION: No acute intraabdominal abnormality.
[2025-06-13] MEDS: TAMSULOSIN HYDROCHLORIDE 0.4 MG CAP PO SCH (17:35)
--- NOTE | 2025-06-13 21:51 | DVHPN2 ---
Progress Note - Dictate Date Seen: Jun 13, 2025 Medical Necessity Reason Pt with a Central, PICC or Fol: No Subjective Patient was seen and evaluated in follow up. Patient is complaining of urinary frequency/incontinence. He also complains of pain while urinating. Patient's Cherie is at bedside. BS are WNL. Telemetry reviewed. vital signs Vital Sign Date Time Temp Pulse Resp B/P (MAP) Pulse Ox O2 Delivery O2 Flow Rate FiO2 06/13/25 12:33 97.7 73 17 101/68 (79) 99 97.7 06/13/25 10:00 Room Air* 0 21 Total Intake and Output 06/12/25 06/12/25 06/13/25 15:00 23:00 07:00 Intake Total 770 ml 800 ml Balance 770 ml 800 ml medications Current Medications Medications Dose Ordered Sig/Anam Route Start Time Stop Time Status Last Admin Dose Admin Nitroglycerin 0.4 mg Q5MINP PRN SL 06/10/25 18:15 Morphine Sulfate 2 mg Q30M PRN IV 06/10/25 18:15 06/11/25 12:28 2 MG Aspirin 81 mg DAILY PO 06/11/25 10:00 06/13/25 08:53 81 MG Atorvastatin Calcium 20 mg HS PO 06/10/25 22:00 06/12/25 21:23 20 MG Divalproex Sodium 500 mg BID PO 06/10/25 22:00 06/13/25 08:53 500 MG Losartan Potassium 25 mg DAILY PO 06/11/25 10:00 06/13/25 08:52 25 MG Verapamil HCl 180 mg DAILY PO 06/11/25 10:00 06/13/25 08:53 180 MG Diagnostic Test (Pha) 1 strip ACHS 06/10/25 22:00 06/13/25 12:10 1 STRIP Insulin Human Regular ACHS SC 06/10/25 22:00 Dextrose 50 ml UD PRN IV 06/10/25 19:30 Acetaminophen/ Hydrocodone Bitart 1 tab Q4HP PRN PO 06/10/25 19:30 06/13/25 06:58 1 TAB Ondansetron HCl 4 mg Q4HP PRN IV 06/10/25 19:30 Enoxaparin Sodium 40 mg DAILY SC 06/11/25 10:00 06/13/25 08:53 40 MG Acetaminophen 650 mg Q6HP PRN PO 06/10/25 19:30 Fluticasone Propionate 50 mcg Q12HR EACHNOSTRI 06/11/25 22:00 06/13/25 08:54 50 MCG Albuterol 2.5 mg Q4HPRN PRN NEB 06/12/25 22:00 06/13/25 06:59 2.5 MG Ipratropium [place] 0.5 mg Q4HPRN PRN NEB 06/12/25 22:00 06/13/25 06:59 0.5 MG Tamsulosin HCl 0.4 mg QPM PO 06/13/25 18:00 objective GENERAL: Alert and oriented x 3. No acute distress. EYES: PERRL, EOMI. Anicteric. HENT: Moist mucous membranes. LUNGS: Clear to auscultation bilaterally. CARDIOVASCULAR: Regular rate and rhythm. ABDOMEN: Soft, nontender and nondistended. EXTREMITIES: No edema. NEUROLOGIC: No focal neurological deficits. SKIN: Warm, dry. laboratory and microbiology Laboratory Tests 06/11/25 08:15 06/10/25 17:11 Test 06/11/25 08:15 Range/Units Serum Glucose 87 74-106 mg/dL Problem List Chest pain non-cardiac, ACS ruled out. COPD exacerbation. Hypertension. Diabetes mellitus type 2. Hyperlipidemia. Bipolar disorder. Assessment/Plan Continued all current supportive medical care. [place] for pain management. Aspirin. DVT prophylactics. Losartan. Nitro SL. Nebulized breathing treatments. Additional plan as per the hospital course. Plan discussed with: Patient TRANG CHUNG MD Jun 13, 2025 15:20
[2025-06-13] MEDS ORDERED: MELATONIN 5 MG TAB ONE (23:41)
[2025-06-13] MEDS: MELATONIN 5 MG TAB PO ONE (23:43)
[2025-06-14] VITALS (11 sets, daily range): BP systolic 92–113; BP diastolic 58–77; PULSE 60–82; RESP 14–18; TEMP 36.7; O2SAT 94–98
[2025-06-14 06:47] LABS: Hematocrit 39.8 % (41.0-53.0); Hemoglobin 13.8 g/dL (13.5-17.5); Mean Corpuscular Hemoglobin 33.0 pg (28.0-32.0); Mean Corpuscular Volume 95.0 fL (80.0-100.0); Nucleated Red Blood Cells % 0.2 %
[2025-06-14 06:59] LABS: Alanine Aminotransferase 20 U/L (7-40); Alkaline Phosphatase 107 U/L (46-116); Anion Gap 11 (5-15); BUN/Creatinine Ratio 15.1 (10.0-20.0); Blood Urea Nitrogen 14 mg/dL (9-23); Calcium 9.5 mg/dL (8.7-10.4); Carbon Dioxide 24 mmol/L (20-31); Chloride 106 mmol/L (98-107); Glucose 76 mg/dL (74-106); Potassium 4.6 mmol/L (3.5-5.1); Sodium 141 mmol/L (136-145); Total Protein 6.6 g/dL (5.7-8.2)
[2025-06-14 07:00] LABS: Albumin 4.0 g/dL (3.2-4.8)
[2025-06-14 07:01] LABS: Bilirubin, Total 0.6 mg/dL (0.2-1.0)
--- NOTE | 2025-06-14 11:22 | DVHPN2 ---
Reviewed: Care Plan, H&P, Labs, Medications, Previous Orders, Radiology Changes from previous H/P or p: No Changes Objective Vitals Vital Signs Date Time Temp Pulse Resp B/P (MAP) Pulse Ox O2 Delivery O2 Flow Rate FiO2 06/14/25 10:33 113/58 06/14/25 10:00 82 06/14/25 09:00 98.0 17 98 98.0 06/14/25 05:51 Room Air* 0 21 Intake/Output Intake and Output 06/14/25 07:00 Intake Total 3080 ml Balance 3080 ml Intake Oral 3080 ml # Voids 17 # Bowel Movements 4 Medications Current Medications Medications Dose Ordered Sig/Anam Route Start Time Stop Time Status Last Admin Dose Admin Nitroglycerin 0.4 mg Q5MINP PRN SL 06/10/25 18:15 Morphine Sulfate 2 mg Q30M PRN IV 06/10/25 18:15 06/11/25 12:28 2 MG Aspirin 81 mg DAILY PO 06/11/25 10:00 06/14/25 10:17 81 MG Atorvastatin Calcium 20 mg HS PO 06/10/25 22:00 06/13/25 21:34 20 MG Divalproex Sodium 500 mg BID PO 06/10/25 22:00 06/14/25 10:17 500 MG Losartan Potassium 25 mg DAILY PO 06/11/25 10:00 06/14/25 10:33 25 MG Verapamil HCl 180 mg DAILY PO 06/11/25 10:00 06/14/25 10:00 180 MG Diagnostic Test (Pha) 1 strip ACHS 06/10/25 22:00 06/14/25 06:05 1 STRIP Insulin Human Regular ACHS SC 06/10/25 22:00 Dextrose 50 ml UD PRN IV 06/10/25 19:30 Acetaminophen/ Hydrocodone Bitart 1 tab Q4HP PRN PO 06/10/25 19:30 06/14/25 10:17 1 TAB Ondansetron HCl 4 mg Q4HP PRN IV 06/10/25 19:30 Enoxaparin Sodium 40 mg DAILY SC 06/11/25 10:00 06/14/25 10:16 40 MG Acetaminophen 650 mg Q6HP PRN PO 06/10/25 19:30 Fluticasone Propionate 50 mcg Q12HR EACHNOSTRI 06/11/25 22:00 06/14/25 10:19 50 MCG Albuterol 2.5 mg Q4HPRN PRN NEB 06/12/25 22:00 06/13/25 06:59 2.5 MG Ipratropium [place] 0.5 mg Q4HPRN PRN NEB 06/12/25 22:00 06/13/25 06:59 0.5 MG Tamsulosin HCl 0.4 mg QPM PO 06/13/25 18:00 06/13/25 17:35 0.4 MG Laboratory Results Laboratory Tests 06/14/25 05:42 Chemistry Test 06/14/25 05:42 Albumin 4.0 g/dL (3.2-4.8) Calcium Level 9.5 mg/dL (8.7-10.4) Total Protein 6.6 g/dL (5.7-8.2) LFT Test 06/14/25 05:42 Alanine Aminotransferase (ALT) 20 U/L (7-40) Alkaline Phosphatase 107 U/L (46-116) Aspartate Amino Transferase (AST) 26 U/L (13-40) Total Bilirubin 0.6 mg/dL (0.2-1.0) Urinalysis Test 06/10/25 18:45 Urine Color Yellow (Yellow) Urine Clarity Turbid (Clear) H Urine pH 6.0 (5.0-9.0) Urine Specific [place] 1.028 (1.001-1.035) Urine Protein 1+ (Negative) H Urine Ketones Trace (Negative) Urine Blood Negative /uL (Negative) Urine Nitrite Negative (Negative) Urine Bilirubin Negative (Negative) Urine Urobilinogen 2 mg/dL (Negative) H Urine Leukocyte Esterase Negative /uL (Negative) Urine RBC 2 /hpf (0 - 3) Urine Microscopic WBC 2 /HPF (0-3) Urine Squamous Epithelial Cells Few /hpf (<5) Urine Calcium Oxalate Crystals Many (None Seen) Urine Bacteria None seen /hpf (None Seen) Urine Hyaline Casts Few /lpf (0 - 2) Urine Mucus Few (None Seen) Urine Yeast (Budding) Occasional /hpf (None Urine Glucose Trace mg/dL (Normal) Microbiology Microbiology Date/Time Source Procedure Growth Status 06/11/25 02:30 Nose MRSA Screen - Final Complete Labs and/or images reviewed: Labs reviewed by me, Image(s) reviewed by me Assessment/Plan Assessment/Plan Noncardiac chest pain Troponin negative, treatment per ACS protocol Consult for Cardiology Dr. Reid appreciated Accelerated Hypertension blood pressure systolic 180, verapamil, losartan Diabetes mellitus insulin sliding scale Acute COPD exacerbation History of asthma Depression and bipolar: Depakote Chronic back pain Recurrent falls at home Time spent 49 minutes Advanced care planning time 20 minutes Patient is full code Physical therapy ordred Plan discussed with: Patient Date of Service: Jun 14, 2025 Billing Provider: RANJEET ROCHA MD Common Visit Codes: [id number] INP/OBS CARE(HIGH) RANJEET ROCHA MD Jun 14, 2025 11:22
--- NOTE | 2025-06-14 11:32 | DVHDS2 ---
Discharge Summary Date of Admission Jun 10, 2025 at 18:12 Date of Discharge: Jun 14, 2025 Admitting Diagnosis Chest pain Wounds: None Labs/Diagnostic Data: Laboratory Results Test 06/14/25 06:00 06/14/25 05:42 06/10/25 20:10 06/10/25 18:45 POC Glucose 92 mg/dl (70-106) White Blood Count 4.0 10^3/uL (4.4-10.8) Red Blood Count 4.19 10^6/uL (4.5-5.90) Hemoglobin 13.8 g/dL (13.5-17.5) Hematocrit 39.8 % (41.0-53.0) Mean Corpuscular Volume 95.0 fL (80.0-100.0) Mean Corpuscular Hemoglobin 33.0 pg (28.0-32.0) Mean Corpuscular Hemoglobin Concent 34.7 g/dL (32.0-36.0) Red Cell Distribution Width 13.4 % (11.8-14.3) Platelet Count 238 10^3/uL (140-450) Mean Platelet Volume 6.9 fL (6.9-10.8) Neutrophils (%) (Auto) 50.0 % (37.0-80.0) Lymphocytes (%) (Auto) 36.4 % (10.0-50.0) Monocytes (%) (Auto) 10.4 % (0.0-12.0) Eosinophils (%) (Auto) 2.9 % (0.0-7.0) Basophils (%) (Auto) 0.3 % (0.0-2.0) Neutrophils # (Auto) 2.0 10 ^3/uL (1.6-8.6) Lymphocytes # (Auto) 1.5 10 ^3/uL (0.4-5.4) Monocytes # (Auto) 0.4 10 ^3/uL (0-1.3) Eosinophils # (Auto) 0.1 10 ^3/uL (0-0.8) Basophils # (Auto) 0 10 ^3/uL (0-0.2) Nucleated Red Blood Cells 0.2 % Sodium Level 141 mmol/L (136-145) Potassium Level 4.6 mmol/L (3.5-5.1) Chloride Level 106 mmol/L (98-107) Carbon Dioxide Level 24 mmol/L (20-31) Anion Gap 11 (5-15) Blood Urea Nitrogen 14 mg/dL (9-23) Creatinine 0.93 mg/dL (0.700-1.30) Glomerular Filtration Rate Calc 88 mL/min (>90) BUN/Creatinine Ratio 15.1 (10.0-20.0) Serum Glucose 76 mg/dL (74-106) Calcium Level 9.5 mg/dL (8.7-10.4) Total Bilirubin 0.6 mg/dL (0.2-1.0) Aspartate Amino Transferase (AST) 26 U/L (13-40) Alanine Aminotransferase (ALT) 20 U/L (7-40) Alkaline Phosphatase 107 U/L (46-116) Total Protein 6.6 g/dL (5.7-8.2) Albumin 4.0 g/dL (3.2-4.8) Troponin I High Sensitivity 10 ng/L (</=54) Urine Color Yellow (Yellow) Urine Clarity Turbid (Clear) Urine pH 6.0 (5.0-9.0) Urine Specific [place] 1.028 (1.001-1.035) Urine Protein 1+ (Negative) Urine Ketones Trace (Negative) Urine Blood Negative /uL (Negative) Urine Nitrite Negative (Negative) Urine Bilirubin Negative (Negative) Urine Urobilinogen 2 mg/dL (Negative) Urine Leukocyte Esterase Negative /uL (Negative) Urine RBC 2 /hpf (0 - 3) Urine Microscopic WBC 2 /HPF (0-3) Urine Squamous Epithelial Cells Few /hpf (<5) Urine Calcium Oxalate Crystals Many (None Seen) Urine Bacteria None seen /hpf (None Seen) Urine Hyaline Casts Few /lpf (0 - 2) Urine Mucus Few (None Seen) Urine Yeast (Budding) Occasional /hpf (None Urine Glucose Trace mg/dL (Normal) Test 06/10/25 17:11 B-Type Natriuretic Peptide 107.82 pg/mL (0-100) Other Laboratory Tests 06/14/25 05:42 Brief Hx & Hospital Course: 69-year-old male with a history of hypertension diabetes COPD asthma bipolar depression chronic back pain burden by family for chest pain and recurrent falls. Troponin negative x3 treated per ACS protocol cardiology consult by Dr. Reid blood pressure was 180 placed on verapamil. Physical therapy ordered for his chronic back pain and recurrent falls. The patient is being discharged to nursing home facility for medication management physical therapy and rehab the plan is acceptable with the patient and the Consults/Reason for consult Cardiology Dr. Derek Reid Operations or Procedures Echocardiogram Condition at Discharge: Fair Final Diagnosis/Problems List Noncardiac chest pain Troponin negative, treatment per ACS protocol Consult for Cardiology Dr. Reid appreciated Accelerated Hypertension blood pressure systolic 180, verapamil, losartan Diabetes mellitus insulin sliding scale Acute COPD exacerbation History of asthma Depression and bipolar: Depakote Chronic back pain Recurrent falls at home Discharge Disposition: [facility] Facility Discharge Instruct/Medications Diet: Cardiac 2g Na,low cholest Activity: Light activity Follow Up/Referral: Follow up with the [facility] dr Medications: see list Scheduled Aspirin (Aspirin), 81 MG PO DAILY, (Reported) Atorvastatin Calcium (Atorvastatin Calcium), 20 MG PO HS Beclomethasone Dipropionate (Qvar), 40 MCG IN BID, (Reported) Cholecalciferol (Vitamin D3), 1 CAP PO DAILY, (Reported) Divalproex Sodium (Divalproex Sodium), 500 MG PO BID, (Reported) Fluticasone Propionate (Fluticasone Propionate), 50 MCG JUANCHO BID, (Reported) Bralasgnwop-Tsyqteghczbx-Xslbf (Trelegy Ellipta 200-62.5-25 Mcg/INH), 1 AER IN BID, (Reported) Glipizide (Glipizide), 5 MG PO BID, (Reported) Lansoprazole (Lansoprazole), 30 MG PO DAILY, (Reported) Losartan Potassium (Losartan Potassium), 1 TAB PO DAILY, (Reported) Metformin Hydrochloride (Glucophage), 850 MG PO BID, (Reported) Sertraline Hcl (Sertraline Hcl), 1 TAB PO DAILY, (Reported) Tiotropium Foster-Olodaterol (Stiolto Respimat 2.5-2.5 Mcg/Act), 1 AER IN DAILY, (Reported) Verapamil Hcl (Verapamil Hcl Er), 180 MG PO DAILY, (Reported) Scheduled PRN Baclofen (Baclofen), 10 MG PO BID PRN for FOR MUSCLE SPASM, (Reported) Oxycodone Hcl (Roxicodone), 5 MG PO Q6HPRN PRN for MODERATE PAIN, (Reported) 39 (Time taken for discharge summary 39 minutes) Discharge Statement: "Patient was advised to return to the ER or call 911 if any headaches, dizziness, shortness of breath, chest pain, abdominal pain, bleeding, fevers, or worsening of medical condition. Patient was counseled about treatment plan, medications, possible side effects, patientverbalized understanding. All questions were answered to the best of my ability. This discharge took greater then 30 minutes in planning, reviewing documentation, counseling the patient, and discussing with other team members." ASSESSMENT ASSESSMENT Hospital Course Improved Assessment Noncardiac chest pain Troponin negative, treatment per ACS protocol Consult for Cardiology Dr. Reid appreciated Accelerated Hypertension blood pressure systolic 180, verapamil, losartan Diabetes mellitus insulin sliding scale Acute COPD exacerbation History of asthma Depression and bipolar: Depakote Chronic back pain Recurrent falls at home Date of Service: Jun 14, 2025 Billing Provider: RANJEET ROCHA MD Common Visit Codes: [id number]/[id number] DISCH DAY >30min RANJEET ROCHA MD Jun 14, 2025 11:31
[2025-06-14] MEDS ORDERED: MELATONIN 5 MG TAB PO ONE (22:00)
--- NOTE | 2025-06-15 00:21 | DVHPN2 ---
Progress Note - Dictate Date Seen: Jun 14, 2025 Medical Necessity Reason Pt with a Central, PICC or Fol: No Subjective Patient was seen and evaluated in follow up. Patient has no new complaints at this time. Patient denies any cardiac symptoms. Patient is cardiac stable for discharge. Telemetry reviewed. vital signs Vital Sign Date Time Temp Pulse Resp B/P (MAP) Pulse Ox O2 Delivery O2 Flow Rate FiO2 06/14/25 17:00 98.2 75 17 94/61 (72) 97 98.2 06/14/25 10:00 Room Air* 0 21 Total Intake and Output 06/14/25 06/14/25 06/15/25 15:00 23:00 07:00 Intake Total 758 ml Balance 758 ml objective GENERAL: Alert and oriented x 3. No acute distress. EYES: PERRL, EOMI. Anicteric. HENT: Moist mucous membranes. LUNGS: Clear to auscultation bilaterally. CARDIOVASCULAR: Regular rate and rhythm. ABDOMEN: Soft, nontender and nondistended. EXTREMITIES: No edema. NEUROLOGIC: No focal neurological deficits. SKIN: Warm, dry. laboratory and microbiology Laboratory Tests 06/14/25 05:42 Test 06/14/25 05:42 Range/Units Serum Glucose 76 74-106 mg/dL Problem List Chest pain non-cardiac, ACS ruled out. COPD exacerbation. Hypertension. Diabetes mellitus type 2. Hyperlipidemia. Bipolar disorder. Assessment/Plan Continued all current supportive medical care. [place] for pain management. Aspirin. DVT prophylactics. Losartan. Nitro SL. Nebulized breathing treatments. Additional plan as per the hospital course. Plan discussed with: Patient TRANG CHUNG MD Jun 15, 2025 00:21
== END 2025-06-14 18:25 | DRG 192 ==
LOC: EDBD 16:55 → EDUNIT# 16:55 → ER 16:55 → OVERFLOW 18:12 → TELE-WESTW 21:41 → TELE-EAST 06-11 02:02
PROVIDERS: ADMIT Family Medicine; ATTEND Family Medicine
DX: J44.1 Chronic obstructive pulmonary disease with (acute) exacerbation (principal); E11.9 Type 2 diabetes mellitus without complications; I10 Essential (primary) hypertension; F31.9 Bipolar disorder, unspecified; E78.5 Hyperlipidemia, unspecified; G89.29 Other chronic pain; K21.9 Gastro-esophageal reflux disease without esophagitis; R29.6 Repeated falls; M54.9 Dorsalgia, unspecified; Z82.49 Family history of ischemic heart disease and other diseases of the circulatory system; Z83.3 Family history of diabetes mellitus; Z90.49 Acquired absence of other specified parts of digestive tract; Z88.6 Allergy status to analgesic agent; Z88.8 Allergy status to other drugs, medicaments and biological substances; Z79.899 Other long term (current) drug therapy
CPT/HCPCS: 36415; 71045; 74176; 78452; 80048; 80053; 81001; 82962; 83880; 84484; 85025; 87081; 93005; 93017; 94640; 97163; G0378